=== PATIENT | female | born 1955 | race Caucasian/White ===

== ENCOUNTER → 2023-01-01 09:57 | Outpatient (BNVA) | payer MEDICAID, SELFPAY | PROVIDERS: PCP Nurse Practitioner Family; Visit Provider Nurse Practitioner Family | DX: E11.9 Type 2 diabetes mellitus without complications (principal); E78.5 Hyperlipidemia, unspecified | CPT/HCPCS: 80053; 80061; 83036; 84443; 85025 ==

== ENCOUNTER → 2023-06-04 10:36 | Outpatient (BNVA) | payer MEDICAID, SELFPAY | PROVIDERS: PCP Nurse Practitioner Family; Visit Provider Nurse Practitioner Family | DX: E11.9 Type 2 diabetes mellitus without complications (principal) | CPT/HCPCS: 80053; 80061; 83036; 84443; 85025 ==

== ENCOUNTER → 2023-07-21 13:01 | Outpatient (BNVA) | payer MEDICAID, SELFPAY | PROVIDERS: PCP Nurse Practitioner Family; Referring Provider Nurse Practitioner Family; Visit Provider Internal Medicine | DX: R07.9 Chest pain, unspecified (principal); E11.9 Type 2 diabetes mellitus without complications; I10 Essential (primary) hypertension; E78.5 Hyperlipidemia, unspecified; Z79.01 Long term (current) use of anticoagulants; R94.31 Abnormal electrocardiogram [ECG] [EKG] | CPT/HCPCS: 93005; 99204 ==

== ENCOUNTER → 2024-01-27 08:50 | Outpatient (BNVA) | payer MEDICAID, SELFPAY | PROVIDERS: PCP Nurse Practitioner Family; Visit Provider Nurse Practitioner Family | DX: I10 Essential (primary) hypertension (principal); E11.9 Type 2 diabetes mellitus without complications | CPT/HCPCS: 80053; 80061; 83036; 84443; 85025 ==

== ENCOUNTER → 2024-02-01 13:49 | Outpatient (BNVA) | payer MEDICAID, SELFPAY | PROVIDERS: PCP Nurse Practitioner Family; Visit Provider Internal Medicine Cardiovascular Disease | DX: I48.91 Unspecified atrial fibrillation (principal); I10 Essential (primary) hypertension; Z79.01 Long term (current) use of anticoagulants | CPT/HCPCS: 99213 ==

== ENCOUNTER 2024-02-29 06:00 | Outpatient (RCR) | payer MEDICARE, MEDICAID, SELFPAY | END 2024-03-16 23:59 | disposition home or self-care (01) | LOC: APT 06:00 | PROVIDERS: Visit Provider Nurse Practitioner Family | DX: M06.9 Rheumatoid arthritis, unspecified (principal); R26.9 Unspecified abnormalities of gait and mobility | CPT/HCPCS: 97110; 97112; 97162; 97530 ==

== ENCOUNTER 2024-03-17 06:00 | Outpatient (RCR) | payer MEDICARE, MEDICAID, SELFPAY | END 2024-04-16 23:59 | disposition home or self-care (01) | LOC: APT 06:00 | PROVIDERS: Visit Provider Nurse Practitioner Family | DX: M06.9 Rheumatoid arthritis, unspecified (principal); M19.90 Unspecified osteoarthritis, unspecified site; R26.9 Unspecified abnormalities of gait and mobility | CPT/HCPCS: 97110; 97112; 97530 ==

== ENCOUNTER → 2024-04-13 09:00 | Outpatient (BNVA) | payer MEDICARE, MEDICAID, SELFPAY | PROVIDERS: PCP Nurse Practitioner Family; Visit Provider Nurse Practitioner Family | DX: E03.9 Hypothyroidism, unspecified (principal); E11.9 Type 2 diabetes mellitus without complications | CPT/HCPCS: 80053; 80061; 83036; 84443; 85025 ==

== ENCOUNTER → 2024-09-26 11:14 | Outpatient (BNVA) | payer MEDICARE, MEDICAID, SELFPAY | PROVIDERS: PCP Nurse Practitioner Family; Visit Provider Clinical Nurse Specialist Adult Health | DX: M85.80 Other specified disorders of bone density and structure, unspecified site (principal); Z78.0 Asymptomatic menopausal state; E11.8 Type 2 diabetes mellitus with unspecified complications; E11.9 Type 2 diabetes mellitus without complications; I10 Essential (primary) hypertension; E78.5 Hyperlipidemia, unspecified; E03.9 Hypothyroidism, unspecified; I48.91 Unspecified atrial fibrillation; R60.0 Localized edema; M25.811 Other specified joint disorders, right shoulder; G47.33 Obstructive sleep apnea (adult) (pediatric) | CPT/HCPCS: 80053; 80061; 83036; 83880; 84443; 85025 ==

== ENCOUNTER 2024-10-11 07:53 | Outpatient (RCR) | payer MEDICARE, MEDICAID, SELFPAY | END 2024-10-14 23:59 | disposition home or self-care (01) | LOC: APT 07:53 | PROVIDERS: PCP Clinical Nurse Specialist Adult Health; Visit Provider Clinical Nurse Specialist Adult Health | DX: M25.811 Other specified joint disorders, right shoulder (principal) | CPT/HCPCS: 97110; 97162 ==

== ENCOUNTER 2024-10-15 06:00 | Outpatient (RCR) | payer MEDICARE, MEDICAID, SELFPAY | END 2024-11-14 23:59 | disposition home or self-care (01) | LOC: APT 06:00 | PROVIDERS: PCP Clinical Nurse Specialist Adult Health; Visit Provider Clinical Nurse Specialist Adult Health | DX: M25.811 Other specified joint disorders, right shoulder (principal) | CPT/HCPCS: 97110 ==

== ENCOUNTER 2024-10-31 15:10 | Outpatient (CLI) | payer MEDICARE, MEDICAID, SELFPAY ==
--- NOTE | 2024-10-31 15:22 | XR_ITS ---
WS: [id number] SCREENING DEXA SCAN [employer] CLINICAL INFORMATION: M85.80 OTHER SPECIFIED DISORDERS OF THE BONE COMPARISON: None. FINDINGS: The L1-L4 bone mineral density measures 1.095 g/cm2. This corresponds to a T score score of -0.7 and Z score of -0.2. Left femoral neck bone mineral density measures 0.866 g/cm2. This corresponds to a T score of -1.1 and Z score of -0.5. Right femoral neck bone mineral density measures 0.976 g/cm2. This corresponds to a T score -0.3of and Z score of 0.3. Mean femoral neck bone mineral density measures 0.921 g/cm2. This corresponds to a T score of -0.7 and Z score of -0.1. XR/XR DEXA axial skeleton* [id number] IMPRESSION: Normal bone mineralization lumbar spine. Osteopenia LEFT femur. Normal bone min eralization RIGHT femur. Patient's FRAX calculated 10 year probability for major osteoporotic fracture i s 9.7% and osteoporotic hip fracture is 0.9%.
== END 2024-10-31 15:11 | disposition home or self-care (01) ==
LOC: RAD 15:11
PROVIDERS: PCP Clinical Nurse Specialist Adult Health; Visit Provider Clinical Nurse Specialist Adult Health
DX: Z78.0 Asymptomatic menopausal state (principal); M85.852 Other specified disorders of bone density and structure, left thigh
CPT/HCPCS: 77080

== ENCOUNTER 2024-11-15 05:00 | Outpatient (RCR) | payer MEDICARE, MEDICAID, SELFPAY | END 2024-12-14 23:59 | disposition home or self-care (01) | LOC: APT 05:00 | PROVIDERS: PCP Clinical Nurse Specialist Adult Health; Visit Provider Clinical Nurse Specialist Adult Health | DX: M25.811 Other specified joint disorders, right shoulder (principal) | CPT/HCPCS: 97110; 97112; 97530 ==

== ENCOUNTER 2024-12-19 08:42 | Inpatient (IN) | payer MEDICARE, MEDICAID, SELFPAY ==
[2024-12-19] VITALS (13 sets, daily range): BP systolic 119–182; BP diastolic 75–102; PULSE 98–119; RESP 16–18; TEMP 37.1; O2SAT 91–96; BMI 37.5
[2024-12-19 10:13] LABS: Basophils % 0.2 %; Eosinophils % 0.1 %; Hematocrit 44.7 % (36-47); Lymphocytes # 0.7 10^3/uL (0.8-4.8); Lymphocytes % 4.3 %; Mean Corpuscular Hemoglobin 29.2 pg (27-33); Mean Corpuscular Volume 91.4 fl (85-98); Mean Platelet Volume 10.9 fL (7.4-10.4); Monocytes # 0.5 10^3/uL (0.2-0.9); Monocytes % 3.3 %; Neutrophils # 14.69 10^3/uL (1.8-7.7); Neutrophils % 91.6 %; Nucleated Red Blood Cells % 0 %; Platelet Count 269 10^3/cmm (157-399); Red Blood Count 4.89 10^6/uL (3.85-5.65); Red Cell Distribution Width 13.9 % (12.1-15.1); White Blood Count 16.03 10^3/uL (3.29-11.43)
[2024-12-19 10:35] LABS: Alanine Aminotransferase 417 U/L (0-33); Albumin Level 4.5 g/dL (3.5-5.2); Alkaline Phosphatase 138 U/L (35-105); Anion Gap 23.8 (5-19); Aspartate Amino Transferase 671 U/L (0-32); Blood Urea Nitrogen 26 mg/dL (8-23); Calcium 10.6 mg/dL (8.5-10.5); Carbon Dioxide 22 mmol/L (22-29); Chloride 98 mmol/L (98-107); Creatinine Clr Calc Pharmacy 56.2322; Globulin 3.2 g/dL (1.3-4.6); Glomerular Filtration Rate 44.5 mL/min (90-130); Glucose 172 mg/dL (65-115); Osmolality Calculated 299 mOsm/kg (285-295); Potassium 3.8 mmol/L (3.5-5.1); Sodium 140 mmol/L (136-145); Total Bilirubin 2.5 mg/dL (0.15-1.2); Total Protein 7.7 g/dL (6.6-8.7)
--- NOTE | 2024-12-19 10:58 | US_ITS ---
WS: [id number] RIGHT UPPER QUADRANT ULTRASOUND HISTORY: N/V; elevated LFTs COMPARISON: None available. Liver: 19.8 cm in length. Moderately enlarged liver. Liver is difficult to see in its entirety due to patient's body habitus and attenuation. Portal Vein: Normal hepatopetal flow with monophasic waveform. Gallbladder: Normally distended gallbladder with stones. Comet tail artifact also noted within the gallbladder from adenomyomatosis. CBD: 0.7 cm Pancreas: Obscured. Right kidney: 9.7 cm in length. Normal size and echogenicity. No hydronephrosis or mass. Aorta and IVC: Unremarkable abdominal aorta and IVC. No ascites. US/US gall bladder [id number] IMPRESSION: 1. Cholelithiasis without acute cholecystitis. Additional comet tail artifact from adenomyomatosis. 2. Common bile duct is measuring top normal size. 3. Moderate hepatomegaly with hepatic steatosis.
[2024-12-19 11:17] LABS: Lipase > 15412 U/L (13-60)
--- NOTE | 2024-12-19 13:19 | W.ED.NAVMDI ---
HPI - Nausea/Vomiting/Diarrhea General: Chief complaint: Nausea/Vomiting/Diarrhea Stated complaint: n/v Time Seen by Provider: 12/19/24 08:57 History of Present Illness: 69-year-old female presents with nausea vomiting diarrhea that started this morning. Patient reports she has been having symptoms on and off since around [facility]. She would get some symptoms and that would go away. That this morning she had a lot worse symptoms as far as the nausea vomiting, she has got some moderate diffuse abdominal pain. Associated nausea: Yes Associated symtoms: Reports fatigue and nausea Related Data Previous Rx's ?Medication ?Instructions ?Recorded blood sugar diagnostic (OneTouch #100 ea 01/27/24 Verio test strips) blood-glucose meter (OneTouch #1 ea 01/27/24 Verio Flex Meter) lancets #100 ea 01/27/24 albuterol sulfate 90 mcg/actuation 2 puff inhalation QID PRN 09/26/24 aerosol inhaler (Ventolin HFA) shortness of breath or wheezing #6.7 grams allopurinol 300 mg tablet 300 mg PO DAILY #30 tabs 09/26/24 apixaban 5 mg tablet (Eliquis) 5 mg PO BID #60 tabs 09/26/24 atorvastatin 20 mg tablet 20 mg PO BEDTIME #30 tabs 09/26/24 diltiazem HCl 300 mg capsule,24 300 mg PO DAILY #30 caps 09/26/24 hr,extended release levothyroxine 75 mcg capsule 75 mcg PO DAILY #30 caps 09/26/24 lisinopril 20 mg tablet 20 mg PO DAILY #30 tabs 09/26/24 metformin 500 mg tablet 500 mg PO DAILY #30 tabs 09/26/24 mometasone-formoterol HFA 100 2 puff inhalation BID #13 grams 09/26/24 mcg-5 mcg/actuation aerosol inhaler (Dulera) montelukast 10 mg tablet 10 mg PO DAILY #30 tabs 09/26/24 (Singulair) Allergies Allergy/AdvReac Type Severity Reaction Status Date / Time No Known Allergies Allergy Verified 12/19/24 09:32 Review of Systems Const: Reports: chills and fatigue; Denies: fever(s) Resp: Denies: dyspnea or wheezing GI: Reports: abdominal pain, nausea, vomiting and diarrhea : Denies: flank pain or difficulty voiding Musc: Denies: neck pain PFSH ED PFSH: Medical History Enrolled in chronic care management MARYCARMEN (obstructive sleep apnea) hx of diagnosed marycarmen, not on cpap Hypothyroidism Chronic anticoagulation Chronic gout Hyperlipidemia Essential hypertension Type 2 diabetes mellitus COPD (chronic obstructive pulmonary disease) Atrial fibrillation Osteoarthritis Rheumatoid arthritis Surgical History Hx of goiter hx of goiter excision Hx of local excision of skin lesion left foot skin cancer removed Hx of tooth extraction Hx of hysterectomy, total had a plasma reaction when she had her hysterectomy. Was told to avoid future surgeries due to this reaction. 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 Physical Exam Const: COMMON NORMALS: patient oriented x3 NUTRITIONAL APPEARANCE: obese Resp: COMMON NORMALS: normal respiratory effort and clear to auscultation bilaterally AUSCULTATION: clear to auscultation bilaterally Cardio: COMMON NORMALS: regular rhythm RATE: tachycardic RHYTHM: regular rhythm GI: COMMON NORMALS: Soft to palpation PALPATION: Yes Soft to palpation and Yes Tenderness to palpation present (GI) (Mild diffuse) Extremity: COMMON NORMALS: normal to inspection Neuro: COMMON NORMALS: patient oriented x3 and moves all extremities Psych: COMMON NORMALS: mental status grossly normal, Normal thought process present and cooperative THOUGHT PROCESS: Normal thought process present Skin: COMMON NORMALS: no rashes or lesions noted GENERAL SKIN EXAM: no rashes or lesions noted Course Vital Signs: Vital signs: Vital Signs Temperature 98.1 F 12/20/24 03:30 Pulse Rate 116 H 12/20/24 05:30 Respiratory Rate 20 H 12/20/24 04:30 Blood Pressure 141/76 12/20/24 05:30 Pulse Oximetry 94 12/20/24 05:30 Oxygen Delivery Me thod Nasal Cannula 12/20/24 03:30 Oxygen Flow Rate 2 12/19/24 21:30 MDM - Nausea/Vomiting/Diarrhea Medical Decision Making Patient's diagnostic studies were reviewed and show significant elevation of her lipase along with her liver enzymes. Initial ultrasound showed cholelithiasis but no acute cholecystitis. Due to concerns about needing a possible ERCP following discussion with hospitalist and general surgery did contact [facility]. [facility] did not have ERCP capabilities tonight and requested an MRCP. MRCP shows acute pancreatitis. Patient is excepted to [facility] for GI consultation with the hospitalist Dr. Key accepting. Patient will likely not be transferred till tomorrow due to bed availability. Lab Data 12/20/24 05:35 12/19/24 09:56 Radiology Impressions Gallbladder Ultrasound 12/19/24 10:58 IMPRESSION: 1. Cholelithiasis without acute cholecystitis. Additional comet tail artifact from adenomyomatosis. 2. Common bile duct is measuring top normal size. 3. Moderate hepatomegaly with hepatic steatosis. Cholangiopancreatography MRI 12/19/24 13:23 IMPRESSION: 1. Findings consistent with acute pancreatitis 2. Cholelithiasis with mild pericholecystic edema 3. Normal bile ducts Laboratory Results WBC 21.46 10^3/uL (3.29-11.43) H 12/20/24 05:35 RBC 4.84 10^6/uL (3.85-5.65) 12/20/24 05:35 Hgb 14.20 g/dL (11.27-16.99) 12/20/24 05:35 Hct 43.1 % (36-47) 12/20/24 05:35 MCV 89.0 fl (85-98) 12/20/24 05:35 MCH 29.3 pg (27-33) 12/20/24 05:35 MCHC 32.9 g/dL (30-55) 12/20/24 05:35 RDW 14.4 % (12.1-15.1) 12/20/24 05:35 Plt Count 253 10^3/cmm (157-399) 12/20/24 05:35 MPV 10.9 fL (7.4-10.4) H 12/20/24 05:35 Neut % (Auto) 89.8 % 12/20/24 05:35 Lymph % (Auto) 4.4 % 12/20/24 05:35 Bos[place] % (Auto) 4.5 % 12/20/24 05:35 Eos % (Auto) 0.7 % 12/20/24 05:35 Baso % (Auto) 0.2 % 12/20/24 05:35 Neut # (Auto) 19.27 10^3/uL (1.8-7.7) H 12/20/24 05:35 Lymph # (Auto) 1.0 10^3/uL (0.8-4.8) 12/20/24 05:35 [place] # (Auto) 1.0 10^3/uL (0.2-0.9) H 12/20/24 05:35 Eos # (Auto) 0.2 10^3/uL (0.0-0.8) 12/20/24 05:35 Baso # (Auto) 0.0 10^3/uL (0.0-0.1) 12/20/24 05:35 Nucleated RBC % (auto) 0 % 12/20/24 05:35 Nucleated RBCs # 0.0 /100WBC 12/20/24 05:35 Sodium 140 mmol/L (136-145) 12/19/24 09:56 Potassium 3.8 mmol/L (3.5-5.1) 12/19/24 09:56 Chloride 98 mmol/L (98-107) 12/19/24 09:56 Carbon Dioxide 22 mmol/L (22-29) 12/19/24 09:56 Anion Gap 23.8 (5-19) H 12/19/24 09:56 BUN 26 mg/dL (8-23) H 12/19/24 09:56 Creatinine 1.2 mg/dL (0.5-0.9) H 12/19/24 09:56 GFR Calculation 44.5 mL/min (90-130) L 12/19/24 09:56 Glucose 172 mg/dL (65-115) H 12/19/24 09:56 Calculated Osmolality 299 mOsm/kg (285-295) H 12/19/24 09:56 Calcium 10.6 mg/dL (8.5-10.5) H 12/19/24 09:56 Total Bilirubin 2.5 mg/dL (0.15-1.2) H 12/19/24 09:56 AST 671 U/L (0-32) H 12/19/24 09:56 ALT 417 U/L (0-33) H 12/19/24 09:56 Alkaline Phosphatase 138 U/L (35-105) H 12/19/24 09:56 Total Protein 7.7 g/dL (6.6-8.7) 12/19/24 09:56 Albumin 4.5 g/dL (3.5-5.2) 12/19/24 09:56 Globulin 3.2 g/dL (1.3-4.6) 12/19/24 09:56 Lipase > 62053 U/L (13-60) H 12/19/24 09:56 Urine Color Dark yellow (Yellow) A 12/19/24 14:48 Urine Appearance Slightly cloudy (CLEAR) 12/19/24 14:48 Urine pH 5 (5-7) 12/19/24 14:48 Ur Specific [place] 1.010 (1.005-1.030) 12/19/24 14:48 Urine Protein 2+ (Negative) H 12/19/24 14:48 Urine Glucose (UA) Norm (Normal) 12/19/24 14:48 Urine Ketones Negative (Negative) 12/19/24 14:48 Urine Blood 2+ (Negative) H 12/19/24 14:48 Urine Nitrate Negative (Negative) 12/19/24 14:48 Urine Bilirubin 1+ (Negative) H 12/19/24 14:48 Urine Urobilinogen 4 mg/dL (Negative) H 12/19/24 14:48 Ur Leukocyte Esterase 2+ (Negative) H 12/19/24 14:48 Urine RBC 3-5 /hpf (0-2) 12/19/24 14:48 Urine WBC 51-100 /hpf (0-5) H 12/19/24 14:48 Ur Squamous Epith Cells 6-10 /hpf (0-5) 12/19/24 14:48 Amorphous Sediment Not Reportable 12/19/24 14:48 Urine Bacteria 4+ /hpf (NONE) H 12/19/24 14:48 Hyaline Casts 26.85 /lpf 12/19/24 14:48 All radiology interpretation(s) finalized by discharge Discharge Plan Discharge Patient Disposition: Xfer Short-Term Hosp Clinical Impression: Pancreatitis, Choledocholithiasis Condition: Stable Referrals: Sudheer Ivy NP [Primary Care Provider, Family Practice] Print Language: [place] Coding Level of Care Code ED Boardmarker for Elis Carey
--- NOTE | 2024-12-19 13:23 | MRR_ITS ---
PROCEDURE INFORMATION: Exam: MR Abdomen Without Contrast Exam date and time: 12/19/2024 4:59 PM Age: 69 years old Clinical indication: Abdominal pain; Generalized; Additional info: Pancreatitis, possible bile duct stone TECHNIQUE: Imaging protocol: Magnetic resonance imaging of the abdomen without contrast. COMPARISON: US gall bladder [id number] 12/19/2024 11:16 AM FINDINGS: Liver: A 1 cm cyst involves the posterior segment of the right hepatic lobe. Gallbladder and biliary ducts: Multiple gallstones and sludge can be seen in the gallbladder. There is mild pericholecystic edema. Bile ducts are unremarkable. Pancreas: There is inflammation involving the body and tail of the pancreas with fluid noted throughout the left upper quadrant. Spleen: Unremarkable. No splenomegaly. Adrenal glands: Unremarkable. No mass. Kidneys: Unremarkable. No solid mass. No hydronephrosis. Stomach and bowel: Visualized stomach and intestines are unremarkable. Intraperitoneal space: No free fluid. Vasculature: No abdominal aortic aneurysm. Lymph nodes: No enlarged nodes. Bones/joints: Unremarkable. No suspicious lesions. Soft tissues: Unremarkable. MR/MR MRCP [id number] IMPRESSION: 1. Findings consistent with acute pancreatitis 2. Cholelithiasis with mild pericholecystic edema 3. Normal bile ducts
--- NOTE | 2024-12-19 13:46 | PM.CONSULT ---
Providers/Reason For Consult Consulting Physician/Specialty*: General Surgery Reason for Consult*: Evaluation for possible acute cholecystitis Primary Care Provider: Sudheer Ivy History of Present Illness History of Present Illness Priti Hurtado is a 69 year old female Who presents to the hospital with severe abdominal pain nausea and vomiting over the last 24 hours. According to the patient she has been having on and off abdominal pain since and the pain resolved with changes in diet but yesterday after eating she experienced significant abdominal pain in the epigastrium radiating to the mid abdomen and back. She has had multiple episodes of nausea and vomit. Workup in the emergency department shows evidence of a elevated white count to 16,000 and a lipase level of more than 15,000. There is also elevation of the bilirubin ALT AST and the alk phos. Review of Systems General: Reports: 10 or more systems reviewed and unremarkable except in HPI and below Medications/Allergies Home Medications ?Medication ?Instructions ?Recorded ?Confirmed ?Last Taken ?Type blood sugar diagnostic (OneTouch #100 ea 01/27/24 12/14/24 Unknown Rx Verio test strips) blood-glucose meter (OneTouch #1 ea 01/27/24 12/14/24 Unknown Rx Verio Flex Meter) cetirizine 10 mg capsule (Allergy 10 mg PO DAILY #30 caps 01/27/24 12/14/24 Unknown Rx Relief (cetirizine)) lancets #100 ea 01/27/24 12/14/24 Unknown Rx albuterol sulfate 90 mcg/actuation 2 puff inhalation QID PRN 09/26/24 12/14/24 Unknown Rx aerosol inhaler (Ventolin HFA) shortness of breath or wheezing #6.7 grams allopurinol 300 mg tablet 300 mg PO DAILY #30 tabs 09/26/24 12/14/24 Unknown Rx apixaban 5 mg tablet (Eliquis) 5 mg PO BID #60 tabs 09/26/24 12/14/24 Unknown Rx atorvastatin 20 mg tablet 20 mg PO BEDTIME #30 tabs 09/26/24 12/14/24 Unknown Rx cyclobenzaprine 5 mg tablet 5 mg PO TID PRN muscle spasm #20 09/26/24 12/14/24 Unknown Rx tabs diltiazem HCl 300 mg capsule,24 300 mg PO DAILY #30 caps 09/26/24 12/14/24 Unknown Rx hr,extended release levothyroxine 75 mcg capsule 75 mcg PO DAILY #30 caps 09/26/24 12/14/24 Unknown Rx lisinopril 20 mg tablet 20 mg PO DAILY #30 tabs 09/26/24 12/14/24 Unknown Rx metformin 500 mg tablet 500 mg PO DAILY #30 tabs 09/26/24 12/14/24 Unknown Rx mometasone-formoterol HFA 100 2 puff inhalation BID #13 grams 09/26/24 12/14/24 Unknown Rx mcg-5 mcg/actuation aerosol inhaler (Dulera) montelukast 10 mg tablet 10 mg PO DAILY #30 tabs 09/26/24 12/14/24 Unknown Rx (Singulair) Allergies Allergy/AdvReac Type Severity Reaction Status Date / Time No Known Allergies Allergy Verified 12/19/24 09:32 PFSH Acute PFSH: Medical History Enrolled in chronic care management NORIS (obstructive sleep apnea) hx of diagnosed noris, not on cpap Hypothyroidism Chronic anticoagulation Chronic gout Hyperlipidemia Essential hypertension Type 2 diabetes mellitus COPD (chronic obstructive pulmonary disease) Atrial fibrillation Osteoarthritis Rheumatoid arthritis Surgical History Hx of goiter hx of goiter excision Hx of local excision of skin lesion left foot skin cancer removed Hx of tooth extraction Hx of hysterectomy, total had a plasma reaction when she had her hysterectomy. Was told to avoid future surgeries due to this reaction. 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 Data 12/19/24 09:56 12/19/24 09:56 A&P Assessment and plan (1) Pancreatitis: (2) Choledocholithiasis: Plan This is a 69-year-old female who presents to the hospital with a clinical picture consistent with acute pancreatitis likely from biliary etiology. Currently there is no evidence of acute cholecystitis per imaging and also physical examination. She does have significant evaluation of the LFTs including a 2.5 total bilirubin and a alk phos of 138. The common bile duct in ultrasound was 0.7, due to the significant elevation of the lipase and also elevation of LFTs I think it will be important to obtain additional imaging in the form of MRCP to rule out choledocholithiasis. If choledocholithiasis is identified patient will need referral to higher level of care for ERCP. if MRCP is negative for choledocholithiasis the recommendation will be medical management of acute pancreatitis, additional workup with triglyceride level to ensure no other etiology and once acute episode of pancreatitis has subsided we can consider laparoscopic cholecystectomy that could be done in an elective setting as it will be helpful from the surgical standpoint for the patient to be on a high-protein liquid diet for 2 weeks due to hepatomegaly. In the case of clinical changes in patient condition we might decide to proceed earlier. Due to elevation of the white count it will be a recommendation that the patient is started on gram-negative antibiotic coverage. All other management should be guided by medical team, pending results of MRCP. PDMP PDMP Reviewed: Not Reviewed Coding Level of Care Code Acute Code for Chg Fwd Diagnoses Pancreatitis K85.90 Choledocholithiasis K80.50
[2024-12-19] MEDS: sodium chloride 0.9% 1,000 ML 999 ML IV (14:04)
[2024-12-19] MEDS: ondansetron 2 mg/ML SDV 2 mL 4 MG IVP ×2 (14:05→19:58)
[2024-12-19] MEDS: fentaNYL 50 mcg/mL INJ 2mL IVP (14:06)
[2024-12-19 15:16] LABS: Bacteria Urine 4+ /hpf; Hyaline Casts Urine 26.85 /lpf; Universal Test for UA Present (0); WBC Urine 51-100 /hpf (0-5)
[2024-12-19 15:56] LABS: Add Urine Microscopic? YES; Bilirubin Urine 1+ (Negative); Blood Urine 2+ (Negative); Glucose Urine UA Norm (Normal); Ketones Urine Negative (Negative); Leukocyte Esterase Urine 2+ (Negative); Nitrate Urine Negative (Negative); Protein Urine 2+ (Negative); Urine Appearance Slightly Cloudy (CLEAR); Urine Color Dark Yellow (Yellow); Urobilinogen Urine 4 mg/dL (Negative); pH Urine 5 (5-7)
[2024-12-19 15:57] LABS: UA Slide Review UA Slide Review Perf
[2024-12-19 16:01] LABS: Add Urine Culture? Yes
[2024-12-19] MEDS: morphine 4 mg/mL SDV 1 mL IVP (19:58)
[2024-12-19] MEDS: lactated ringers 1,000 ML 150 ML IV (21:14)
[2024-12-20] VITALS (49 sets, daily range): BP systolic 114–175; BP diastolic 67–114; PULSE 106–125; RESP 17–28; TEMP 36.7–38.4; O2SAT 92–96; BMI 38.9
[2024-12-20] MEDS: cefTRIAXone 1,000 mg SDV 1000 MG IVP (03:41)
[2024-12-20] MEDS: lactated ringers 1,000 ML 150 ML IV ×3 (03:41→19:55)
[2024-12-20] MEDS: ondansetron 2 mg/ML SDV 2 mL 4 MG IVP (03:54)
[2024-12-20] MEDS: morphine 4 mg/mL SDV 1 mL IVP (03:54)
[2024-12-20 05:58] LABS: Basophils % 0.2 %; Eosinophils # 0.2 10^3/uL (0.0-0.8); Eosinophils % 0.7 %; Hematocrit 43.1 % (36-47); Lymphocytes % 4.4 %; Mean Corpuscular HGB Conc 32.9 g/dL (30-55); Mean Corpuscular Hemoglobin 29.3 pg (27-33); Mean Platelet Volume 10.9 fL (7.4-10.4); Monocytes % 4.5 %; Neutrophils # 19.27 10^3/uL (1.8-7.7); Neutrophils % 89.8 %; Nucleated Red Blood Cells % 0 %; Platelet Count 253 10^3/cmm (157-399); Red Blood Count 4.84 10^6/uL (3.85-5.65); Red Cell Distribution Width 14.4 % (12.1-15.1); White Blood Count 21.46 10^3/uL (3.29-11.43)
[2024-12-20 06:06] LABS: Glucose Point of Care 129 mg/dL (70-110)
[2024-12-20 06:17] LABS: Alanine Aminotransferase 515 U/L (0-33); Albumin Level 3.6 g/dL (3.5-5.2); Alkaline Phosphatase 172 U/L (35-105); Anion Gap 16.8 (5-19); Aspartate Amino Transferase 444 U/L (0-32); Blood Urea Nitrogen 26 mg/dL (8-23); Calcium 8.2 mg/dL (8.5-10.5); Carbon Dioxide 26 mmol/L (22-29); Chloride 104 mmol/L (98-107); Creatinine Clr Calc Pharmacy 67.4787; Globulin 2.9 g/dL (1.3-4.6); Glucose 154 mg/dL (65-115); Osmolality Calculated 304 mOsm/kg (285-295); Potassium 3.8 mmol/L (3.5-5.1); Sodium 143 mmol/L (136-145); Total Bilirubin 4.8 mg/dL (0.15-1.2); Total Protein 6.5 g/dL (6.6-8.7)
[2024-12-20 06:33] LABS: Triglycerides 57 mg/dL (0-150)
[2024-12-20] MEDS: piperacillin-tazobactam 3.375 GM in sodium chloride 0.9% (plus) 50 ML IV ×3 (06:33→21:29)
--- NOTE | 2024-12-20 06:34 | PM.PN ---
Subjective Subjective: Patient has been awaiting transfer to higher level of care. her symptoms are stable but there is significant worsening of laboratory workup. Vitals/I&O/Wt Last Vital Signs Temp 98.1 F 12/20/24 03:30 Pulse 114 H 12/20/24 06:00 Resp 20 H 12/20/24 04:30 BP 148/76 12/20/24 06:00 Pulse Ox 93 12/20/24 06:00 O2 Del Method Nasal Cannula 12/20/24 06:00 O2 Flow Rate 2 12/19/24 21:30 12/19/24 12/19/24 12/20/24 14:59 22:59 06:59 Intake Total 1000 / 1000 1380.0 / 2380.0 Balance 1000 / 1000 1380.0 / 2380.0 Weight last 48 hrs Weight 240 lb Data 12/20/24 05:35 12/20/24 05:35 A&P Assessment and plan (1) Pancreatitis: (2) Cholangitis: Plan Significant worsening of biliary profiele and wbc in the last 24 hours. with elevation of the billurubin to 4.8 fro 2.5 and wbc to 21 from 16. additional lfts are also elevated this new workup is concerning for the possibility of cholangitis vs severe pancreatitis with biliary stasis. At this point patient will benefit from GI evaluation and possible biliary decompresion via ERCP before proceeding to cholecystectomy due to severity of pancreatitis and significant elevation of billirubin. transfer to higher level of care is recommended. PDMP PDMP Reviewed: Not Reviewed Attestations Medical Necessity Statement*: per medical and ER team Coding Level of Care Code Acute Code for [facility] Diagnoses Pancreatitis K85.90 Cholangitis K83.09
[2024-12-20 07:10] LABS: Lactic Sepsis W/Reflex 1.2 mmol/L (0.5-2.2)
[2024-12-20 07:15] LABS: Lipase 4915 U/L (13-60)
--- NOTE | 2024-12-20 08:55 | PC.PHAR ---
Addendum entered by Randa Solis 12/20/24 08:56: Medications verified yesterday but I re-verified with pt this morning. Pt concerned about getting her am meds and inhaler. States her machine will stop going off when she gets them. Original Note: Pt states she really needs her morning medications: Diltiazem 300, Eliquis 5mg, Levothyroxine 75mcg, Lisinopril 20mg and her Dulera. 12/20/24
--- NOTE | 2024-12-20 11:09 | PM.CONSULT ---
Providers/Reason For Consult Consulting Physician/Specialty*: Hospitalist Reason for Consult*: Pancreatitis, cholecystitis Primary Care Provider: Sudheer Ivy History of Present Illness History of Present Illness Priti Hurtado is a 69 year old patient presents with episodes of nausea, vomiting, diarrhea, and lower abdominal pain. The initial onset was on the Thursday before , lasting four days before resolving, followed by a recurrence on Thursday evening with increased severity. And then again last Thursday night and into yesterday morning which brought her to ED. The pain is described as being localized to across the lower abdomen and just under the breast area. The patient also reports episodes of feeling very cold prior to vomiting and recalls a previous bout of diarrhea lasting about five days with yellow stools and no blood. Prior management included a bland diet (toast, applesauce, and banana) with instructions to avoid coffee in favor of water and green tea. The patient currently denies any active vomiting or diarrhea. In ER she is found with tachycardia up to 120, although she states she has not taken her diltiazem medication. With leukocytosis 16, increased up to 21 .5, with T. bili elevated up to 2.5 yesterday up to 4.8 today, alk phos 138 yesterday up to 172 today, with transaminitis, AST 671 down to 444 today, ALT 417 up to 515 today. Lipase over 15,412 yesterday. Today 4915. Gallbladder ultrasound with cholelithiasis without acute cholecystitis. CBD normal. Moderate hepatomegaly with hepatic steatosis. MRCP with findings consistent with acute pancreatitis, cholelithiasis with mild pericholecystic edema, normal bile ducts. Review of Systems Const: Reports: fever(s), chills, change in appetite and malaise; Denies: body aches ENMT: Denies: throat pain Card: Denies: chest pain, edema, pre-syncope or dyspnea on exertion Resp: Denies: dyspnea, productive cough, change in phlegm color or hemoptysis GI: Reports: abdominal pain, nausea and vomiting; Denies: diarrhea, constipation, hematochezia or melena : Denies: flank pain, urinary frequency or hematuria Musc: Denies: back pain, joint swelling or joint redness Skin/Breast: Denies: rash or new lesions Neuro: Denies: headache(s) or confusion Medications/Allergies Home Medications ?Medication ?Instructions ?Recorded ?Confirmed ?Last Taken ?Type blood sugar diagnostic (OneTouch #100 ea 01/27/24 12/19/24 Unknown Rx Verio test strips) blood-glucose meter (OneTouch #1 ea 01/27/24 12/19/24 Unknown Rx Verio Flex Meter) lancets #100 ea 01/27/24 12/19/24 Unknown Rx albuterol sulfate 90 mcg/actuation 2 puff inhalation QID PRN 09/26/24 12/19/24 Unknown Rx aerosol inhaler (Ventolin HFA) shortness of breath or wheezing #6.7 grams apixaban 5 mg tablet (Eliquis) 5 mg PO BID #60 tabs 09/26/24 12/19/24 12/18/24 Rx atorvastatin 20 mg tablet 20 mg PO BEDTIME #30 tabs 09/26/24 12/20/24 12/18/24 Rx mometasone-formoterol HFA 100 2 puff inhalation BID #13 grams 09/26/24 12/19/24 12/18/24 Rx mcg-5 mcg/actuation aerosol inhaler (Dulera) allopurinol 300 mg tablet 300 mg PO QPM 12/20/24 12/20/24 12/18/24 History diltiazem HCl 300 mg capsule,24 300 mg PO QAM 12/20/24 12/20/24 12/18/24 History hr,extended release levothyroxine 75 mcg capsule 75 mcg PO QAM 12/20/24 12/20/24 12/18/24 History lisinopril 20 mg tablet 20 mg PO QAM 12/20/24 12/20/24 12/19/24 History metformin 500 mg tablet 500 mg PO .NOON 12/20/24 12/20/24 12/19/24 History montelukast 10 mg tablet 10 mg PO .NOON 12/20/24 12/20/24 12/18/24 History (Singulair) multivitamin 1 tab PO QAM 12/20/24 12/20/24 12/19/24 History Allergies Allergy/AdvReac Type Severity Reaction Status Date / Time No Known Allergies Allergy Verified 12/19/24 09:32 Current Medications Generic Name Dose Route Start Last Admin Trade Name Freq PRN Reason Stop Dose Admin Lactated Ringer's 1,000 mls @ 150 mls/hr 12/19/24 20:30 12/20/24 08:39 Lactated Ringers IV 150 mls/hr .Q6H40M TONY Infusion Sodium Chloride 1,000 mls @ 150 mls/hr 12/20/24 04:45 12/20/24 04:39 Sodium Chloride 0.9% IV Not Given .Q6H40M TONY PFSH Acute PFSH: Medical History Enrolled in chronic care management MARYCARMEN (obstructive sleep apnea) hx of diagnosed marycarmen, not on cpap Hypothyroidism Chronic anticoagulation Chronic gout Hyperlipidemia Essential hypertension Type 2 diabetes mellitus COPD (chronic obstructive pulmonary disease) Atrial fibrillation Osteoarthritis Rheumatoid arthritis Surgical History Hx of goiter hx of goiter excision Hx of local excision of skin lesion left foot skin cancer removed Hx of tooth extraction Hx of hysterectomy, total had a plasma reaction when she had her hysterectomy. Was told to avoid future surgeries due to this reaction. 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 Vitals/I&O/Wt Last Vital Signs Temp 98.1 F 12/20/24 03:30 Pulse 114 H 12/20/24 06:00 Resp 20 H 12/20/24 04:30 BP 148/76 12/20/24 06:00 Pulse Ox 93 12/20/24 06:00 O2 Del Method Nasal Cannula 12/20/24 06:00 O2 Flow Rate 2 12/19/24 21:30 12/19/24 12/20/24 12/20/24 22:59 06:59 14:59 Intake Total 1000 / 1000 1380.0 / 2380.0 0 / 0 Balance 1000 / 1000 1380.0 / 2380.0 0 / 0 Weight last 48 hrs Weight 108.862 kg Physical Exam Const: COMMON NORMALS: patient oriented x3 and alert GENERAL APPEARANCE: cooperative ORIENTATION/CONSCIOUSNESS: Yes awake HENMT: COMMON NORMALS: oropharynx normal Neck/C-Spine: COMMON NORMALS: no JVD Resp: COMMON NORMALS: normal respiratory effort and clear to auscultation bilaterally AUSCULTATION: clear to auscultation bilaterally Cardio: COMMON NORMALS: no JVD, regular rhythm, S1 normal heart sound present, S2 normal heart sound present and No murmurs present (Cardio) RHYTHM: regular rhythm HEART SOUNDS: S1 normal heart sound present and S2 normal heart sound present GI: COMMON NORMALS: Soft to palpation PALPATION: Yes Soft to palpation and Yes Tenderness to palpation present (GI) Details: RUQ Extremity: COMMON NORMALS: no joint enlargement and no pedal edema Neuro: COMMON NORMALS: patient oriented x3 and moves all extremities SENSORIUM/ORIENTATION: Yes alert Skin: COMMON NORMALS: no rashes or lesions noted GENERAL SKIN EXAM: no rashes or lesions noted Data 12/20/24 05:35 12/20/24 05:35 Micro: Microbiology 12/19/24 14:48 Urine Culture - Preliminary Urine,Clean Catch Gram Negative Rods A&P Assessment and plan (1) Pancreatitis: Acute pancreatitis, lipase over 15,000 yesterday, with leukocytosis, A-fib with RVR, with T. bili elevation yesterday up to 2.5, alk phos elevation 138, AST 671, ALT 417. Gallbladder ultrasound with cholelithiasis without acute cholecystitis, additional, tail artifact from adenomatosis. Common bile duct top normal size. Moderate hepatomegaly with hepatic steatosis. MRCP obtained yesterday with finding consistent with acute pancreatitis, cholelithiasis with mild pericholecystic edema. Normal bile ducts. She was placed on bowel rest, received IV hydration, antiemetic, received empiric antibiotic coverage with ceftriaxone and then Zosyn. She was evaluated by general surgery. Initially without evidence of cholecystitis, with finding of biliary pancreatitis, while on further reevaluation with finding of rising bilirubin up to 4.8, rising alk phos up to 172, rising leukocytosis up to 21.5, possible concomitant cholecystitis, with recommended biliary decompression via ERCP prior to proceeding to cholecystectomy with concern for worsening cholestasis, possible obstructive pathology secondary to stricture or other obstruction. Agree with transfer arrangements are being made to higher level care facility. Continue with bowel rest, sips, chips, meds, IV hydration with LR. Continue acetaminophen as needed for pain. IV morphine as needed for severe breakthrough. Reviewed vitals, CBC, CMP, lipase, triglyceride, UA, all, mrcp, er provider note, discussed with er provider, surgery note, discussed with surgery provider. (2) Cholecystitis: Reviewed MRCP, cholelithiasis with mild pericholecystic edema. As above. Empiric antibiotic coverage with Zosyn currently. Hold Eliquis. Continue n.p.o., sips chips and meds for now to allow her to take her medications. (3) UTI (urinary tract infection): Reviewed UA, suggestive of UTI. Continue treatment with Zosyn. Follow-up urine culture. Plan Atrial fibrillation with RVR: Heart rate in 120s. She had not taken her medication yesterday. She usually takes Cardizem. Hold Eliquis anticipation of possible surgical procedure. Resume Cardizem. Monitor on telemetry. MARYCARMEN: Does not wear CPAP Hypothyroidism: Levothyroxine DM2: Currently NPO. Hypoglycemia protocol. COPD: Not in exacerbation, DuoNebs as needed. Budesonide. Osteoarthritis RA PDMP PDMP Reviewed: Not Reviewed Consult Attestations Medical Necessity Statement: Will require admission of over 2 midnights for assessment management of biliary pancreatitis, cholecystitis, UTI, A-fib with RVR, pending transfer to outside facility for further assessment by GI specialist. and High MDM includes amount and/or complexity of data reviewed/ordered [ previous or external records, resulted lab(s)/test(s), ordered lab(s)/test(s) and other healthcare professional discussion] and described risk of complication, morbidity or mortality of management as documented Diagnoses Pancreatitis K85.90 Cholecystitis K81.9 UTI (urinary tract infection) N39.0
[2024-12-20 12:10] LABS: Magnesium 1.8 mg/dL (1.7-2.3)
[2024-12-20] MEDS: enoxaparin 40 mg/0.4 mL Syringe SUBCUT (13:34)
[2024-12-20] MEDS: pantoprazole 40 mg SDV IVP (13:34)
[2024-12-20 14:36] LABS: Basophils % 0.1 %; Hematocrit 40.8 % (36-47); Lymphocytes # 1.1 10^3/uL (0.8-4.8); Lymphocytes % 4.7 %; Mean Corpuscular HGB Conc 32.8 g/dL (30-55); Mean Corpuscular Hemoglobin 29.6 pg (27-33); Mean Corpuscular Volume 90.3 fl (85-98); Mean Platelet Volume 10.8 fL (7.4-10.4); Monocytes # 0.9 10^3/uL (0.2-0.9); Monocytes % 3.9 %; Neutrophils # 20.64 10^3/uL (1.8-7.7); Neutrophils % 90.9 %; Nucleated Red Blood Cells % 0 %; Platelet Count 243 10^3/cmm (157-399); Red Blood Count 4.52 10^6/uL (3.85-5.65); Red Cell Distribution Width 14.5 % (12.1-15.1); White Blood Count 22.71 10^3/uL (3.29-11.43)
[2024-12-20 14:53] LABS: Alanine Aminotransferase 409 U/L (0-33); Albumin Level 3.3 g/dL (3.5-5.2); Alkaline Phosphatase 153 U/L (35-105); Aspartate Amino Transferase 264 U/L (0-32); Blood Urea Nitrogen 23 mg/dL (8-23); Calcium 7.6 mg/dL (8.5-10.5); Carbon Dioxide 24 mmol/L (22-29); Chloride 108 mmol/L (98-107); Creatinine Clr Calc Pharmacy 67.4787; Globulin 2.8 g/dL (1.3-4.6); Glucose 120 mg/dL (65-115); Osmolality Calculated 303 mOsm/kg (285-295); Sodium 144 mmol/L (136-145); Total Bilirubin 2.1 mg/dL (0.15-1.2); Total Protein 6.1 g/dL (6.6-8.7)
[2024-12-20 14:58] LABS: Anion Gap 15.8 (5-19); Potassium 3.8 mmol/L (3.5-5.1)
--- NOTE | 2024-12-20 17:05 | PC.NURSE ---
Pt arrvies to [facility] from Emergency room. Pt alert and oriented. She states her lower right abdomen pain is a 2 on 0-10 scale. She states it is dull. Pt chomping ice chips. After her ice chips she stated her stomach is cramping some, encouraged her to slow down on the ice chips. VSS. LR infusing into Left Forearm IV.
[2024-12-20 17:57] LABS: Glucose Point of Care 101 mg/dL (70-110)
--- NOTE | 2024-12-20 18:13 | PM.CONSULT ---
Providers/Reason For Consult Consulting Physician/Specialty*: General Surgery Reason for Consult*: Possible gallstone pancreatitis Attending Physician: Chandrakant Lance Primary Care Provider: Sudheer Ivy History of Present Illness History of Present Illness Priti Hurtado is a 69 year old female Who presented yesterday to our institution with severe abdominal pain nausea and vomiting. Laboratory workup showed a lipase of 15,000, the range LFTs and imaging were Shows evidence of acute pancreatitis. Gallbladder appeared to be normal, follow-up with stone send with mild pericholecystic fluid that can be explained by pancreatitis.Patient was initially evaluated and recommended for transfer to higher level of care as bilirubin appeared to be trending up. But this afternoon the bilirubin has trended down and the patient has been deemed a good candidate to stay in our institution. Review of Systems General: Reports: 10 or more systems reviewed and unremarkable except in HPI and below Medications/Allergies Home Medications ?Medication ?Instructions ?Recorded ?Confirmed ?Last Taken ?Type blood sugar diagnostic (OneTouch #100 ea 01/27/24 12/19/24 Unknown Rx Verio test strips) blood-glucose meter (OneTouch #1 ea 01/27/24 12/19/24 Unknown Rx Verio Flex Meter) lancets #100 ea 01/27/24 12/19/24 Unknown Rx albuterol sulfate 90 mcg/actuation 2 puff inhalation QID PRN 09/26/24 12/19/24 Unknown Rx aerosol inhaler (Ventolin HFA) shortness of breath or wheezing #6.7 grams apixaban 5 mg tablet (Eliquis) 5 mg PO BID #60 tabs 09/26/24 12/19/24 12/18/24 Rx atorvastatin 20 mg tablet 20 mg PO BEDTIME #30 tabs 09/26/24 12/20/24 12/18/24 Rx mometasone-formoterol HFA 100 2 puff inhalation BID #13 grams 09/26/24 12/19/24 12/18/24 Rx mcg-5 mcg/actuation aerosol inhaler (Dulera) allopurinol 300 mg tablet 300 mg PO QPM 12/20/24 12/20/24 12/18/24 History diltiazem HCl 300 mg capsule,24 300 mg PO QAM 12/20/24 12/20/24 12/18/24 History hr,extended release levothyroxine 75 mcg capsule 75 mcg PO QAM 12/20/24 12/20/24 12/18/24 History lisinopril 20 mg tablet 20 mg PO QAM 12/20/24 12/20/24 12/19/24 History metformin 500 mg tablet 500 mg PO .NOON 12/20/24 12/20/24 12/19/24 History montelukast 10 mg tablet 10 mg PO .NOON 12/20/24 12/20/24 12/18/24 History (Singulair) multivitamin 1 tab PO QAM 12/20/24 12/20/24 12/19/24 History Allergies Allergy/AdvReac Type Severity Reaction Status Date / Time No Known Allergies Allergy Verified 12/19/24 09:32 Current Medications Generic Name Dose Route Start Last Admin Trade Name Freq PRN Reason Stop Dose Admin Enoxaparin Sodium 40 mg 12/20/24 11:30 12/20/24 13:34 Enoxaparin 40 Mg/0.4 Ml Syringe SUBCUT 40 mg Q24H TONY Administration Lactated Ringer's 1,000 mls @ 150 mls/hr 12/19/24 20:30 12/20/24 13:00 Lactated Ringers IV 150 mls/hr .Q6H40M TONY Administration Piperacillin Sod/Tazobactam 50 mls @ 12.5 mls/hr 12/20/24 14:00 12/20/24 17:35 Sod 3.375 gm/ Sodium Chloride IV Infused Q8H TONY Infusion Protocol Pantoprazole Sodium 40 mg 12/20/24 11:30 12/20/24 13:34 Pantoprazole 40 Mg Sdv IVP 40 mg Q24H TONY Administration PFSH Acute PFSH: Medical History Enrolled in chronic care management MARYCARMEN (obstructive sleep apnea) hx of diagnosed marycarmen, not on cpap Hypothyroidism Chronic anticoagulation Chronic gout Hyperlipidemia Essential hypertension Type 2 diabetes mellitus COPD (chronic obstructive pulmonary disease) Atrial fibrillation Osteoarthritis Rheumatoid arthritis Surgical History Hx of goiter hx of goiter excision Hx of local excision of skin lesion left foot skin cancer removed Hx of tooth extraction Hx of hysterectomy, total had a plasma reaction when she had her hysterectomy. Was told to avoid future surgeries due to this reaction. 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 No Cartwright sign. Data 12/20/24 14:28 12/20/24 14:28 Micro: Microbiology 12/19/24 14:48 Urine Culture - Preliminary Urine,Clean Catch Gram Negative Rods A&P Assessment and plan (1) Severe acute pancreatitis: Plan After complete history, physical examination and review of all available clinical data the following is my assessmentPatient presents with moderate to severe acute pancreatitis. Over the last 24 hours there has been an downtrending of the bilirubin but there is uptrend of the white count and patient is tachycardic and borderline febrile.At this point I do not suspect that the patient's symptoms are mainly caused by her gallbladder, I do think her symptoms are most likely cause by the severity of the pancreatitis. The biliary etiology of the pancreatitis is a high probability, although there is no evidence of choledocholithiasis on MRCP but the gallbladder is full of the small stones. Additional possible sources of the pancreatitis could be the use of JAROCHO inhibitor's as patient is currently on lisinopril.At this point I do not think we should proceed with laparoscopic cholecystectomy for this patient as it has been demonstrated that in patients with moderate to severe acute pancreatitis that undergo an early cholecystectomy the risks of complications including biliary leak, conversion to open procedure, morbidity or Mickey mortality is increased. I think the best option for the patient will be to have medical management of her pancreatitis and after a cooldown period of about 4 to 6 weeks she can have an elective cholecystectomy. If there is no improvement of the vital signs or laboratory workup by tomorrow morning I will obtain CT scan of the abdomen and pelvis with IV contrast to evaluate of severity of the pancreatitis and reevaluate the gallbladder. Initial imaging the gallbladder does not appear to be thickened and there is only trace pericholecystic fluid that can be reactive from the actual pancreatitis. We will keep the patient n.p.o. overnight until we make a final decision regarding whether or not she will require surgery during this admission. I have discussed this case with my colleague Dr. Aguero and I have also discussed the case with the medical team due to the complexity of the presentation. They agree with the assessment. I have informed the patient of the findings and plan and she is agreeable. PDMP PDMP Reviewed: Not Reviewed Coding Level of Care Code 46501 Diagnoses Severe acute pancreatitis K85.90
[2024-12-20] MEDS: acetaminophen 325 mg Tablet 650 MG PO (18:19)
[2024-12-20 19:43] LABS: Chol HDL Ratio 2.49 mg/dL (0.0-4.40); Cholesterol 127 mg/dL (0-200); HDL Cholesterol 51 mg/dL (60-100); LDL Cholesterol Calculated 65 mg/dL (50-129); LDL HDL Ratio 1.27 RATIO (0.00-3.22); Triglycerides 56 mg/dL (0-150)
[2024-12-20] MEDS: ipratropium-albuterol 3 mL Neb INHALATION (19:54)
[2024-12-20] MEDS: budesonide 0.5 mg/2 mL Neb 0.25 MG INHALATION (19:55)
[2024-12-20 21:35] LABS: Glucose Point of Care 105 mg/dL (70-110)
[2024-12-21] VITALS (53 sets, daily range): BP systolic 101–167; BP diastolic 59–100; PULSE 92–213; RESP 17–33; TEMP 36.9–37.9; O2SAT 88–95
[2024-12-21] MEDS: acetaminophen 325 mg Tablet 650 MG PO (00:57)
[2024-12-21 03:22] LABS: Basophils % 0.2 %; Hematocrit 36.3 % (36-47); Lymphocytes # 1.2 10^3/uL (0.8-4.8); Lymphocytes % 6.2 %; Mean Corpuscular HGB Conc 32.2 g/dL (30-55); Mean Corpuscular Hemoglobin 29.4 pg (27-33); Mean Corpuscular Volume 91.2 fl (85-98); Mean Platelet Volume 11.4 fL (7.4-10.4); Monocytes # 0.9 10^3/uL (0.2-0.9); Monocytes % 4.7 %; Neutrophils # 17.56 10^3/uL (1.8-7.7); Nucleated Red Blood Cells % 0 %; Platelet Count 202 10^3/cmm (157-399); Red Blood Count 3.98 10^6/uL (3.85-5.65); Red Cell Distribution Width 14.6 % (12.1-15.1); White Blood Count 19.95 10^3/uL (3.29-11.43)
[2024-12-21] MEDS: lactated ringers 1,000 ML 150 ML IV (03:37)
[2024-12-21 03:42] LABS: Alanine Aminotransferase 273 U/L (0-33); Albumin Level 3.2 g/dL (3.5-5.2); Alkaline Phosphatase 133 U/L (35-105); Anion Gap 14.4 (5-19); Aspartate Amino Transferase 139 U/L (0-32); Blood Urea Nitrogen 26 mg/dL (8-23); Carbon Dioxide 25 mmol/L (22-29); Chloride 107 mmol/L (98-107); Creatinine Clr Calc Pharmacy 68.8171; Globulin 1.9 g/dL (1.3-4.6); Glucose 109 mg/dL (65-115); Osmolality Calculated 301 mOsm/kg (285-295); Potassium 3.4 mmol/L (3.5-5.1); Sodium 143 mmol/L (136-145); Total Bilirubin 1.6 mg/dL (0.15-1.2); Total Protein 5.1 g/dL (6.6-8.7)
[2024-12-21 03:43] LABS: Alanine Aminotransferase 270 U/L (0-33); Albumin Level 3.1 g/dL (3.5-5.2); Alkaline Phosphatase 127 U/L (35-105); Anion Gap 15.3 (5-19); Aspartate Amino Transferase 137 U/L (0-32); Blood Urea Nitrogen 26 mg/dL (8-23); Carbon Dioxide 25 mmol/L (22-29); Chloride 106 mmol/L (98-107); Creatinine Clr Calc Pharmacy 68.8171; Globulin 2.4 g/dL (1.3-4.6); Glucose 109 mg/dL (65-115); Osmolality Calculated 301 mOsm/kg (285-295); Potassium 3.3 mmol/L (3.5-5.1); Sodium 143 mmol/L (136-145); Total Bilirubin 1.6 mg/dL (0.15-1.2); Total Protein 5.5 g/dL (6.6-8.7)
[2024-12-21 04:00] LABS: Lipase 1964 U/L (13-60)
[2024-12-21] MEDS: adenosine 3 mg/mL SDV 2mL 6 MG IVP ×2 (05:05→07:42)
[2024-12-21] MEDS: adenosine 3 mg/mL SDV 2mL 12 MG IVP ×3 (05:10→07:45)
--- NOTE | 2024-12-21 05:20 | ECG_ITS ---
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 Measurements Intervals [place] Rate: 208 P: 0 CT: 0 QRS: 1 QRSD: 101 T: 0 QT: 213 QTc: 396 Interpretive Statements SUPRAVENTRICULAR TACHYCARDIA MARKED ST DEPRESSION, CONSIDER SUBENDOCARDIAL INJURY [0.2+ mV ST DEPRESSION] ACUTE [place] INTERPRETATION BASED ON A DEFAULT AGE OF 40 YEARS Compared to ECG 07/21/2023 13:09:58 ST (T wave) deviation now present Sinus rhythm no longer present T-wave abnormality no longer present Electronically Signed On 12-21-2024 17:43:09 CDT by Zenobia Plummer M.D. [id number]
[2024-12-21] MEDS: dilTIAZem ER (24HR) 300 mg Capsule PO (05:25)
[2024-12-21] MEDS: dilTIAZem 5 mg/mL SDV 5 mL 25 MG (05:35)
--- NOTE | 2024-12-21 05:37 | CTR_ITS ---
PROCEDURE INFORMATION: Exam: CT Abdomen And Pelvis With Contrast Exam date and time: 12/21/2024 6:16 AM Age: 69 years old Clinical indication: Abdominal pain; Epigastric; Prior surgery; Surgery date: 6+ months; Surgery type: Hysterectomy; Additional info: Severe acute pancreatitis, evaluate severity and gb wall TECHNIQUE: Imaging protocol: Computed tomography of the abdomen and pelvis with contrast. Radiation optimization: All CT scans at this facility use at least one of these dose optimization techniques: automated exposure control; mA and/or kV adjustment per patient size (includes targeted exams where dose is matched to clinical indication); or iterative reconstruction. Contrast material: OMNI 350; Contrast volume: 100 ml; Contrast route: INTRAVENOUS (IV); COMPARISON: MR MRCP [id number] 12/19/2024 4:59 PM RADIATION DOSE METRICS: Total DLP (mGy-cm): 1171.79 FINDINGS: Lungs: Dependent atelectasis in each lower lobe. Liver: Small right hepatic cyst. Gallbladder and biliary ducts: The wall of the gallbladder is minimally prominent and minimally enhancing. Adenomyomatosis may be present. The stones and sludge visible on the recent MRI exam are not appreciated on this CT scan. Pancreas: There is mild edema of the body of the pancreas. There is a small peripancreatic/retroperitoneal effusion. Spleen: Normal. No splenomegaly. Adrenal glands: Normal. No mass. Kidneys and ureters: Small bilateral renal cysts. Stomach and bowel: Diverticulosis without evidence of diverticulitis. Appendix: No evidence of appendicitis. Intraperitoneal space: There is a small amount of ascites within the abdomen. Vasculature: Unremarkable. No abdominal aortic aneurysm. Lymph nodes: Unremarkable. No enlarged lymph nodes. Urinary bladder: Unremarkable as visualized. Reproductive: Unremarkable as visualized. Bones/joints: Unremarkable. No acute fracture. Soft tissues: No well-defined pseudocyst or areas of necrosis are observed. CT/CT abdomen pelvis w con* [id number] IMPRESSION: 1. Minimally abnormal gallbladder. 2. Pancreatitis with retroperitoneal effusion and mild intra-abdominal ascites. COMMENTS: Consistent with the [employer]'s Incidental Findings Committee white paper (J Am John Radiol 2018): Any incidental renal lesion less than 1 cm or classified as too small to characterize, or any incidental cystic renal lesion characterized as simple-appearing, is likely benign. No follow-up imaging is recommended for these lesions per consensus recommendations based on imaging criteria.
--- NOTE | 2024-12-21 06:00 | PC.NURSE ---
0500 SVT noted on monitor. Followed ACLS protocol, Dr. Zhao at bedside. See MAR for medication administration.
[2024-12-21] MEDS: iohexol 350 mg/mL 500 mL Btl (per mL) IV (06:27)
[2024-12-21] MEDS: magnesium sulfate premix 2 GM/50 ML PIGGYBACK IV (06:45)
[2024-12-21] MEDS: piperacillin-tazobactam 3.375 GM in sodium chloride 0.9% (plus) 50 ML IV ×3 (06:45→22:14)
[2024-12-21] MEDS: ondansetron 2 mg/ML SDV 2 mL 4 MG IVP (06:45)
--- NOTE | 2024-12-21 06:46 | PM.PN ---
Subjective Subjective: Is a 69-year-old female who presents to the hospital with moderate to severe acute pancreatitis likely of biliary origin. Patient has remained tachycardic overnight, she developed an episode of SVT requiring adenosine around 5 AM. Abdominal pain has significantly improved although still present in the epigastrium. Vitals/I&O/Wt Last Vital Signs Temp 98.5 F 12/21/24 04:00 Pulse 118 H 12/21/24 05:30 Resp 25 H 12/21/24 05:00 BP 135/79 12/21/24 05:30 Pulse Ox 94 12/21/24 05:30 O2 Del Method Nasal Cannula 12/21/24 05:30 O2 Flow Rate 2 12/21/24 05:30 12/20/24 12/20/24 12/21/24 14:59 22:59 06:59 Intake Total 587.5 / 587.5 3468 / 4055.5 1200 / 5255.5 Output Total 100 / 100 50 / 150 Balance 587.5 / 587.5 3368 / 3955.5 1150 / 5105.5 Weight last 48 hrs Weight 248 lb 12.8 oz Weight 240 lb Physical Exam GI: OTHER: Abdomen is soft Minimally tender and nondistended. Data 12/21/24 02:45 12/21/24 02:45 Micro: Microbiology 12/19/24 14:48 Urine Culture - Preliminary Urine,Clean Catch Gram Negative Rods A&P Assessment and plan (1) Severe acute pancreatitis: (2) Pancreatitis: (3) RUQ pain: Plan Is a 69-year-old female with moderate to severe acute pancreatitis per Randolph criteria and also imaging findings. Pancreatitis is thought to be of biliary origin. Gallbladder imaging has been normal on the day of admission both on ultrasound and MRI and today we obtained an additional CT scan of the abdomen and pelvis with contrast which shows pancreatic edema with peripancreatic fluid collection and free Interval peritoneal fluid consistent with acute pancreatitis the wall of the gallbladder is minimally enhancing no actual cholecystitis noted on CT. With this findings and taking in consideration patient moderate to severe acute pancreatitis as well as recent episode of SVT I do not consider her to be a good surgical candidate for early cholecystectomy. The risk of proceeding with surgery are higher than the benefit that we will obtain. She should continue medical management of her pancreatitis with maximum benefit Therapy, IV antibiotics and hydration. In the case of clinical worsening or uptrending of the white count the next step will be to obtain a cholecystostomy tube for the patient. Once the pancreatitis subsides and patient improves a laparoscopic cholecystectomy can be program as an elective procedure in6 weeks. general surgery will continue to follow. ok to advance tto clear liquids. PDMP PDMP Reviewed: Not Reviewed Attestations Medical Necessity Statement*: per medical team Coding Level of Care Code Acute Code for [facility] Fwd Diagnoses Severe acute pancreatitis K85.90 Pancreatitis K85.90 RUQ pain R10.11
--- NOTE | 2024-12-21 07:09 | PC.NURSE ---
0500 SVT noted on monitor. Followed ACL protocol, Dr. Zhao at bedside. See MAR for medication administration.
--- NOTE | 2024-12-21 07:13 | PC.NURSE ---
New order from Dr. Zhao for 2g IV mag sulfate once, and 40 meq IV potassium chloride once.
[2024-12-21 07:32] LABS: Glucose Point of Care 99 mg/dL (70-110)
[2024-12-21] MEDS: morphine 4 mg/mL SDV 1 mL 8 MG IVP (08:01)
[2024-12-21] MEDS: midazolam 1 mg/mL INJ 2 mL 3 MG IVP (08:01)
[2024-12-21] MEDS: lidocaine 1% 5 ML in potassium chloride premix 100 ML 26.25 ML IV (08:19)
--- NOTE | 2024-12-21 08:20 | ECG_ITS ---
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 Measurements Intervals [place] Rate: 121 P: 40 KS: 129 QRS: -15 QRSD: 98 T: -1 QT: 325 QTc: 463 Interpretive Statements SINUS TACHYCARDIA POSSIBLE ANTERIOR MYOCARDIAL INFARCTION , PROBABLY OLD [30 ms Q WAVE IN V3/V4, OR R < 0.2 mV IN V4] INFERIOR MYOCARDIAL INFARCTION , PROBABLY OLD [40+ ms Q WAVE AND/OR ST/T ABNORMALITY IN II/aVF] Compared to ECG 12/21/2024 05:06:39 Myocardial infarct finding now present Supraventricular tachycardia no longer present ST (T wave) deviation no longer present Electronically Signed On 12-21-2024 17:43:01 CDT by Zenobia Plummer M.D. [email or web address]
[2024-12-21] MEDS: midazolam 1 mg/mL INJ 2 mL 2 MG (08:21)
[2024-12-21] MEDS: levothyroxine 75 mcg Tablet PO (08:21)
[2024-12-21] MEDS: budesonide 0.5 mg/2 mL Neb 0.25 MG INHALATION (08:35)
--- NOTE | 2024-12-21 09:00 | PC.NURSE ---
0730: Pt took a bite of ice, went back into SVT. rate 211. Multiple different vagal maneuvers attempts with no success of converting. Dr Lance notified via telephone , he remained on telephone . 0742: Adenosine 6mg rapid IVP admin as ordered. No rhythm changes. 0745: Adenosine 12 mg Rapid IVP admin as ordered. No rhythm changes. 0754: Difficulty obtained BP, Auscultated and Doppler 84 at brachial . heart rate 220.Pt alert and oriented. She is stating she is having a difficult time breathing. O2 increased from 2 to 4lpm. 0755: Dr Lance now at bedside. Preparing for cardioversion. RT at bedside. 0801: time out completed 0803: Versed 1.5mg admin IVP 0804: Morphine 4 mg IVp admin. 0805: Versed 1.5mg IVP admin 0807: Pt still awake. Heart rate 218. Morphine 4mg IVp admin 0810. Auscultated and Dopplered 80 at brachial 0812: Another 1mg Versed IVP admin 0813: Synchronized shock 150 joules delivered. Heart rate remains 200's. 0814: Synchronized shock 200 joules delivered. Heart rate sinus, rate 120's. 0820: Pt able to follow commands. Resp. even and unlabored. Kryder that was ordered earlier started. Cardizem IVP ordered. Will admin when available per Joseph and ISAURO.
[2024-12-21] MEDS: montelukast sodium 10 mg Tablet PO (09:02)
[2024-12-21] MEDS: dilTIAZem 5 mg/mL SDV 5 mL 30 MG IVP (09:03)
--- NOTE | 2024-12-21 09:07 | USCV_ITS ---
Priti Hurtado Age: 69 Gender: F : 1955 Exam Date: 12/21/2024 10:35 Ordering Phys: Venus Mello Technologist: [place] [facility] [place]: [place] card conversion BP: 132 / 72 HR: 76 Rhythm: Sinus Technical Quality: Adequate MEASUREMENTS (Male / Female) Normal Values 2D ECHO LV Diastolic Diameter PLAX 3.4 cm 4.2 - 5.9 / 3.9 - 5.3 cm IVS Diastolic Thickness 1.1 cm 0.6 - 1.0 / 0.6 - 0.9 cm IVS Systolic Thickness 1.3 cm LVPW Diastolic Thickness 1.0 cm 0.6 - 1.0 / 0.6 - 0.9 cm LVPW Systolic Thickness 1.5 cm LVOT Diameter 2.0 cm LV Ejection Fraction 2D Teich 63.3 % LV Ejection Fraction MOD 4C 68.4 % LV Ejection Fraction MOD 2C 59.3 % LV Ejection Fraction 2C AL 58.2 % LA Diameter 3.8 cm RA Systolic Volume 4C AL 47.9 ml RA Systolic Volume 4C MOD 46.6 ml Aorta at Sinotubular Diameter 2.7 cm M-MODE LA Ao Ratio MM 1.3 AV Cusp Separation MM 2.0 cm DOPPLER AV Peak Velocity 214.0 cm/s LVOT Peak Velocity 100.0 cm/s AV Area Cont Eq vti 1.7 cm squared AV Area Cont Eq pk 1.5 cm squared MV Peak Velocity 107.0 cm/s MV Area PHT 2.8 cm squared Mitral E to A Ratio 0.9 TR Peak Velocity 156.0 cm/s TR Peak Gradient 9.7 mmHg TV Peak E Velocity 82.0 cm/s PV Peak Velocity 111.0 cm/s FINDINGS Left Ventricle Left ventricle is normal size. LV systolic function is normal with EF of 60-65%. No regional wall abnormalities are seen. Grade 1 diastolic dysfunction. Right Ventricle Normal in size and function Right Atrium Normal in size Left Atrium Dilated Mitral Valve Mild mitral valve calcification. Trace mitral regurgitation. Aortic Valve Aortic valve is thickened. Mild aortic stenosis with aortic valve area 1.66 cm squared and mean gradient of 9 mmHg Tricuspid Valve Insufficient TR jet to calculate RVSP Pulmonic Valve Not well visualized Pericardium Normal Aorta Normal in size IVC CONCLUSIONS LV systolic function is normal with EF of 60-65%. Grade 1 diastolic dysfunction. Left atrial dilation Trace mitral regurgitation Mild aortic stenosis No comparison studies are available. Ross Bianchi MD (Electronically Signed) Final Date: 23 Dec 2024 13:06 S
[2024-12-21] MEDS: metoprolol succinate ER (24 HR) 25 mg Tablet 12.5 MG PO (10:32)
--- NOTE | 2024-12-21 11:08 | P.PN_ITS ---
Subjective 2 Subjective: Early this morning SVT, was given adenosine, Cardizem bolus, magnesium, transiently converted to sinus rhythm, however, later in the morning again with tachycardia, SVT up into 200s, without chest pain or pressure, but reporting some difficulty breathing. Awake and alert. Radial pulse present. Difficulties with obtaining a blood pressure reading. Vitals/I&O/Wt Last Vital Signs Temp 98.8 F 12/21/24 07:00 Pulse 92 12/21/24 10:00 Resp 21 H 12/21/24 10:00 BP 114/64 12/21/24 10:00 Pulse Ox 89 L 12/21/24 10:00 O2 Del Method Nasal Cannula 12/21/24 10:00 O2 Flow Rate 4 12/21/24 10:00 12/20/24 12/21/24 12/21/24 22:59 06:59 14:59 Intake Total 3468 / 4055.5 1200 / 5255.5 80 / 80 Output Total 100 / 100 50 / 150 Balance 3368 / 3955.5 1150 / 5105.5 80 / 80 Weight last 48 hrs Weight 117 kg Weight 112.854 kg Physical Exam 2 Const: COMMON NORMALS: patient oriented x3 and alert GENERAL APPEARANCE: c ooperative ORIENTATION/CONSCIOUSNESS: Yes awake HENMT: COMMON NORMALS: oropharynx normal Neck/C-Spine: COMMON NORMALS: no JVD Resp: COMMON NORMALS: normal respiratory effort and clear to auscultation bilaterally AUSCULTATION: clear to auscultation bilaterally Cardio: COMMON NORMALS: no JVD, regular rhythm, S1 normal heart sound present, S2 normal heart sound present and No murmurs present (Cardio) RATE: t achycardic RHYTHM: regular rhythm HEART SOUNDS: S1 normal heart sound present and S2 normal heart sound present GI: COMMON NORMALS: Soft to palpation PALPATION: Yes Soft to palpation and Yes Tenderness to palpation present (GI) Extremity: COMMON NORMALS: no joint enlargement and no pedal edema Neuro: COMMON NORMALS: patient oriented x3 and moves all extremities S ENSORIUM/ORIENTATION: Yes alert Skin: COMMON NORMALS: no rashes or lesions noted GENERAL SKIN EXAM: no rashes or lesions noted Data 12/21/24 02:45 12/21/24 02:45 Micro: Microbiology 12/19/24 14:48 Urine Culture - Final Urine,Clean Catch Escherichia coli A&P Assessment and plan (1) Pancreatitis: Yesterday additional liver primary studies were repeated, which showed a decrease in T. bili. Upon further evaluation, general surgery was comfortable with her admission here with further consideration of early cholecystectomy versus delayed cholecystectomy with follow-up after recovery from pancreatitis. Abdominal pain overall has improved. Lipase this morning down to 1964. T. bili with decreased at 1.6 on review, AST 37, ALT 270, alk phos down to 127. Complicated by SVT Leukocytosis down to 19.95. Surgery further reevaluated with regards to consideration of cholecystectomy today, with recurrent indicators of cholecystitis, mild pericholecystic edema on imaging, improving biliary parameters, issues with tachyarrhythmia, planning and status tube pursue delayed cholecystectomy after resolution of of pancreatitis. Okay for trial of oral intake discussion with surgery, she is requesting for some Jell-O. Discussed with her, clinical diet trial. Continue with bowel rest, sips, chips, meds, IV hydration with LR. Continue acetaminophen as needed for pain. IV morphine as needed for severe breakthrough. Reviewed vitals, CBC, CMP, lipase, triglyceride, UA, all, mrcp, er provider note, discussed with er provider, surgery note, discussed with surgery provider. (2) SVT (supraventricular tachycardia): Recurrent SVT this morning, first early in the morning initially responded to treatment with adenosine, Cardizem bolus, magnesium and was transferred to ICU, however, subsequently again in SVT, heart rates in 200s, with radial pulse, difficult to measure blood pressure. No chest pain. Initially adenosine was attempted for 6 mg then 12 mg, however, without response, blood pressure coming back in the 80s systolic, becoming more short of breath with persistent tachycardia discussed with her emergent cardioversion, risk with sedation, risk of respiratory depression, need for manual ventilatory support, intubation, ventilatory support, risk of stroke with underlying atrial fibrillation, and the risks, without guarantee that cardioversion will be successful, however, with risk of severe hemodynamic deterioration in case of lack of treatment due to hemodynamic instability and symptoms. She is agreeable to proceed. Did not respond to initial 1.5 and follow-up additional 1.5 mg of Versed for sedation with 4 mg of morphine, in total received 4 mg Versed, 8 mg of morphine. Initial attempt with 150 J, cardioverted on next attempt with 200 J. Heart rates down to 120s, appears to be in atrial flutter, blood pressure up to 140s/80s. Given a bolus of 30 mg of Cardizem with plans to start Cardizem drip, however, subsequently in sinus rhythm heart rate in 100s. Receiving replacement potassium. Continuous telemetry monitoring. Recurrent SVT discussed with technical professional on-call, appreciate consultation. (3) Cholecystitis: Discussed with surgery and with her on further surgery reevaluation, will be planning for delayed outpatient cholecystectomy after improvement from acute pancreatitis. Trial of clear liquids. Continue Zosyn for now empirically. Reviewed MRCP, cholelithiasis with mild pericholecystic edema. As above. (4) UTI (urinary tract infection): Reviewed urine culture, positive for E. coli, resistant to ampicillin. Continue treatment with Zosyn. Follow-up urine culture. Plan Atrial fibrillation with RVR: With surgery deferred at this time, may be able to resume anticoagulation, possibly with Lovenox for now. She usually takes Cardizem which has been. Monitor on telemetry. MARYCARMEN: Does not wear CPAP Hypothyroidism: Levothyroxine DM2: Currently NPO. Hypoglycemia protocol. COPD: Not in exacerbation, DuoNebs as needed. Budesonide. Osteoarthritis RA PDMP PDMP Reviewed: Not Reviewed Attestations 2 Medical Necessity Statement*: Admission over 2 midnights needed for assessment management of acute pancreatitis, cholecystitis, SVT, UTI. Coding Level of Care Code Critical Care >/= 30 minutes Critical care time (in minutes): 40 The high probability of a clinically significant, sudden or life threatening deterioration, as referenced in this documentation, required my full and direct attention, intervention and personal management. The critical care time shown is in addition to time spent performing any reported separately billable procedures and includes the following: [x] Data and vital sign review and interpretation [x ] Patient assessment, examination and intervention [x] Medication orders and management [x] Patient/Family updates as able [x] Care Coordination and Documentation. Diagnoses Pancreatitis K85.90 SVT (supraventricular tachycardia) I47.10 Cholecystitis K81.9 UTI (urinary tract infection) N39.0
[2024-12-21] MEDS: sodium chloride 0.9% 1,000 ML 50 ML IV (11:21)
[2024-12-21] MEDS: pantoprazole 40 mg SDV IVP (11:45)
[2024-12-21 11:46] LABS: Glucose Point of Care 101 mg/dL (70-110)
[2024-12-21] MEDS: enoxaparin 40 mg/0.4 mL Syringe SUBCUT (11:46)
--- NOTE | 2024-12-21 12:10 | P.CONIM_ITS ---
<Statement entered by Carlos Aguilar MD - 12/21/24 20:52> Patient was evaluated and cared for in conjunction with an advanced practice practitioner. I personally examined the patient and reviewed the chart and all pertinent data including imaging, telemetry, and laboratory results. I discussed the patient in detail with the advanced practice practitioner. Please see their note for complete H&P testing result and agreed upon plan of care for the patient. As defined below patient had multiple episodes of supraventricular tachycardia post surgery, she was cardioverted and given adenosine GENERAL: Patient is oriented and arousable HEART: Regular S1 and S2. No murmur, rub or gallop. LUNGS: Clear to auscultate bilaterally. CENTRAL NERVOUS SYSTEM: Grossly nonfocal. EXTREMITIES: Lower extremities with out edema bilaterally. Assessment and plan Supraventricular tachycardia difficult to control Postoperative state IV fluids to be continued for rehydration reduce adrenergic response Add beta-zarina metoprolol 12.5 mg p.o. twice daily Continue calcium channel zarina Continue to monitor if patient goes back into supraventricular tachycardia for the time being may can be started on IV amiodarone Echocardiogram will be obtained further plan will be advised as per progress of the patient Providers/Reason For Consult 2 Consulting Physician/Specialty*: Dr Marleny Aguilar, cardiology Reason for Consult*: Atrial fibrillation with RVR and SVT, required cardioversion Requesting Physician: Dr. Lance Attending Physician: Chandrakant Lance Primary Care Provider: Sudheer Ivy History of Present Illness History of Present Illness Priti Hurtado is a 69 year old female with past medical history of atrial fibrillation, hypertension, anticoagulation with apixaban. She was admitted 12/19/2024 for nausea/vomiting/diarrhea found to have acute pancreatitis, cholelithiasis. WBC 19, AST 137, ALT 270. She developed SVT earlier this morning, converted to sinus rhythm with adenosine and diltiazem bolus, then had recurrence of SVT with heart rates in the 200s. At that time she developed hemodynamic instability and underwent cardioversion, which restored sinus rhythm. At the time of my exam she is in sinus rhythm, blood pressures in the 110's systolic. She notes she had not had diltiazem (takes 300 mg daily at home) since admission due to possibility of transfer to another facility for surgical intervention. At this time, general surgery plans for lap cholecystectomy in 6 weeks after acute pancreatitis has resolved. Her diet has been advanced to clear liquids currently. Review of Systems 2 Const: Denies: fever(s), chills, change in weight, fatigue or diaphoresis Eyes: Denies: change in vision ENMT: Denies: epistaxis Card: Denies: chest pain, palpitations, irregular heart rhythm, edema, syncope, pre-syncope, dyspnea on exertion, orthopnea or leg pain with exertion Resp: Denies: dyspnea, productive cough or wheezing GI: Denies: nausea, vomiting, hematemesis, hematochezia or melena : Denies: hematuria Musc: Denies: extremity swelling Joel/Lymph: Denies: easy bruising or easy bleeding Medications/Allergies Home Medications ?Medication ?Instructions ?Recorded ?Confirmed ?Last Taken ?Type blood sugar diagnostic (OneTouch #100 ea 01/27/2401/08 Unknown Rx Verio test strips) blood-glucose meter (OneTouch #1 ea 01/27/24 12/19/24 Unknown Rx Verio Flex Meter) lancets #100 ea 01/27/24 12/19/24 Un known Rx albuterol sulfate 90 mcg/actuation 2 puff inhalation Q ID PRN 09/26/24 12/19/24 Unknown Rx aerosol inhaler (Ventolin HFA) shortness of breath or wheezing #6.7 grams apixaban 5 mg tablet (Eliquis) 5 mg PO BID #60 tabs 12/19/24 12/18/24 Rx atorvastatin 20 mg tablet 20 mg PO BEDTIME #30 tabs 12/20/24 12/18/24 Rx mometasone-formoterol HFA 100 2 puff inhalation BID #1 3 grams 09/26/24 12/19/24 12/18/24 Rx mcg-5 mcg/actuation aerosol inhaler (Dulera) allopurinol 300 mg tablet 300 mg PO QPM 12/20/2412/2012/18/24 History diltiazem HCl 300 mg capsule,24 300 mg PO QAM 12/20/24 12/20/24 12/18/24 History hr,extended release levothyroxine 75 mcg capsule 75 mcg PO QAM 12/20/2412/18/24 History lisinopril 20 mg tablet 20 mg PO QAM 12/20/2412/19/24 History metformin 500 mg tablet 500 mg PO .NOON 12/20/2402/0812/19/24 History montelukast 10 mg tablet 10 mg PO .NOON 12/20/24 05/02/0812/18/24 History (Singulair) multivitamin 1 tab PO QAM 12/20/2412/19/24 History Allergies Allergy/AdvReac Type Severity Reaction Status Date / Time No Known Allergies Allergy Verified 12/19/24 09:32 Current Medications Generic Name Dose Route Start Last Admin Trade Name Freq PRN Reason Stop Dose Admin Acetaminophen 650 mg 12/20/24 11:30 12/21/24 00:57 Acetaminophen 325 Mg Tablet PO 650 mg Q6H PRN Administration Mild/Mod Pain Or Temp >/= 101 Albuterol/Ipratropium 3 ml 12/20/24 11:07 12/20/24 19:54 Ipratropium-Albuterol 3 Ml Neb INHALATION 3 ml Q6H PRN Administration SHORTNESS OF BREATH Budesonide 0.25 mg 12/20/24 20:00 12/21/24 08:35 Budesonide 0.5 Mg/2 Ml Neb INHALATION 0.25 mg BID.RESPIRATORY TONY Administration Diltiazem HCl 300 mg 12/21/24 06:00 12/21/24 05:25 Diltiazem Er (24hr) 300 Mg Capsule PO 300 mg QAM TONY Administration Enoxaparin Sodium 40 mg 12/20/24 11:30 12/21/24 11:46 Enoxaparin 40 Mg/0.4 Ml Syringe SUBCUT 40 mg Q24H TONY Administration Piperacillin Sod/Tazobactam 50 mls @ 12.5 mls/hr 12/20/24 14:00 12/21/24 10:45 Sod 3.375 gm/ Sodium Chloride IV Infused Q8H TONY Infusion Protocol Sodium Chloride 1,000 mls @ 50 mls/hr 12/21/24 10:35 12/21/24 11:21 Sodium Chloride 0.9% IV 50 mls/hr .Q20H TONY Administration Levothyroxine Sodium 75 mcg 12/21/24 06:00 12/21/24 08:21 Levothyroxine 75 Mcg Tablet PO 75 mcg QAM TONY Administration Metoprolol Succinate 12.5 mg 12/21/24 10:15 12/21/24 10:32 Metoprolol Succinate Er (24 Hr) 25 Mg Tablet PO 12.5 mg DAILY TONY Administration Montelukast Sodium 10 mg 12/21/24 09:00 12/21/24 09:02 Montelukast Sodium 10 Mg Tablet PO 10 mg DAILY TONY Administration Ondansetron HCl 4 mg 12/20/24 11:30 12/21/24 06:45 Ondansetron 2 Mg/Ml Sdv 2 Ml IVP 4 mg Q8H PRN Administration vomiting, or N/V if npo Pantoprazole Sodium 40 mg 12/20/24 11:30 12/21/24 11:45 Pantoprazole 40 Mg Sdv IVP 40 mg Q24H TONY Administration PFSH Acute 2 PFSH: Medical History Enrolled in chronic care management MARYCARMEN (obstructive sleep apnea) hx of diagnosed marycarmen, not on cpap Hypothyroidism Chronic anticoagulation Chronic gout Hyperlipidemia Essential hypertension Type 2 diabetes mellitus COPD (chronic obstructive pulmonary disease) Atrial fibrillation Osteoarthritis Rheumatoid arthritis Surgical History Hx of goiter hx of goiter excision Hx of local excision of skin lesion left foot skin cancer removed Hx of tooth extraction Hx of hysterectomy, total had a plasma reaction when she had her hysterectomy. Was told to avoid future surgeries due to this reaction. 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 Vitals/I&O/Wt Last Vital Signs Temp 98.8 F 12/21/24 07:00 Pulse 92 12/21/24 10:00 Resp 21 H 12/21/24 10:00 BP 114/64 12/21/24 10:00 Pulse Ox 89 L 12/21/24 10:00 O2 Del Method Nasal Cannula 12/21/24 10:00 O2 Flow Rate 4 12/21/24 10:00 12/20/24 12/21/24 12/21/24 22:59 06:59 14:59 Intake Total 3468 / 5255.5 1200 / 5255.5 130 / 130 Output Total 100 / 150 50 / 150 Balance 3368 / 5105.5 1150 / 5105.5 130 / 130 Weight last 48 hrs Weight 257 lb 15.053 oz Weight 248 lb 12.8 oz Physical Exam 2 Const: COMMON NORMALS: no acute distress and patient oriented x3 GENERAL APPEARANCE: cooperative and comfortable ORIENTATION/CONSCIOUSNESS: Yes awake, Yes oriented to person, Yes oriented to place and Yes oriented to time Chest: COMMONS NORMALS: normal inspection of the chest and normal palpation of entire chest wall CHEST: Yes Symmetrical chest wall rise Resp: COMMON NORMALS: normal respiratory effort, No retractions, No use of accessory muscles and clear to auscultation bilaterally EFFORT & INSPECTION: Yes symmetric chest movement AUSCULTATION: clear to auscultation bilaterally Cardio: COMMON NORMALS: regular rate, regular rhythm, S1 normal heart sound present, S2 normal heart sound present, No gallops present (Cardio), No clicks present (Cardio), No murmurs present (Cardio) and No rub (Cardio) RATE: r egular rate RHYTHM: regular rhythm HEART SOUNDS: S1 normal heart sound present and S2 normal heart sound present PERIPHERAL PULSES: radial pulses present Extremity: COMMON NORMALS: no pedal edema Neuro: COMMON NORMALS: patient oriented x3 and moves all extremities S ENSORIUM/ORIENTATION: Yes oriented to person, Yes oriented to place and Yes oriented to time Data 12/21/24 02:45 12/21/24 02:45 Micro: Microbiology 12/19/24 14:48 Urine Culture - Final Urine,Clean Catch Escherichia coli A&P Assessment and plan (1) SVT (supraventricular tachycardia): (2) Atrial fibrillation: (3) Chronic anticoagulation: (4) Essential hypertension: Plan Will plan for echocardiogram to evaluate LV function. For now we will gently rehydrate with IV fluid, start metoprolol succinate 12.5 mg daily and continue diltiazem 300 mg daily. Potassium was 3.3 this morning has been replaced. Monitor telemetry closely for arrhythmia. PDMP PDMP Reviewed: Not Reviewed Coding Level of Care Code Acute Code for Chg Fwd Diagnoses SVT (supraventricular tachycardia) I47.10 Atrial fibrillation, unspecified type I48.91 Atrial fibrillation type: unspecified Chronic anticoagulation Z79.01 Essential hypertension I10
[2024-12-21 17:35] LABS: Glucose Point of Care 120 mg/dL (70-110)
--- NOTE | 2024-12-21 18:48 | PC.NURSE ---
Shift summary: Pt has rested in bed throughout shift with trips to the [facility] [place] She has a tendency to hunch over and not stand up straight. We have encouraged her repeatedly to stand up straight to help her back and her stomach not hurt as much. She had that SVT episode with cardioversion this am ( see the note). She has remained in sinus rhythm since. Her highest temp today was 99.6. She has ate her clear liquid diet well. She started off slow to gauge her tolerance of eating. She has had some belching after meals. She has not requested pain medication this shift for her abdomen.
[2024-12-21] MEDS: morphine 4 mg/mL SDV 1 mL 2 MG IVP (20:37)
[2024-12-21 21:14] LABS: Glucose Point of Care 124 mg/dL (70-110)
[2024-12-22] VITALS (34 sets, daily range): BP systolic 112–171; BP diastolic 68–107; PULSE 80–104; RESP 16–27; TEMP 36.6–37.6; O2SAT 91–95
[2024-12-22] MEDS: morphine 4 mg/mL SDV 1 mL 2 MG IVP ×4 (00:49→20:30)
[2024-12-22 05:00] LABS: Basophils % 0.3 %; Eosinophils % 0.2 %; Hematocrit 34.1 % (36-47); Lymphocytes # 1.6 10^3/uL (0.8-4.8); Mean Corpuscular Hemoglobin 29.2 pg (27-33); Mean Corpuscular Volume 91.4 fl (85-98); Mean Platelet Volume 11.8 fL (7.4-10.4); Monocytes # 0.9 10^3/uL (0.2-0.9); Monocytes % 5.6 %; Neutrophils # 13.29 10^3/uL (1.8-7.7); Neutrophils % 83.3 %; Nucleated Red Blood Cells % 0 %; Platelet Count 192 10^3/cmm (157-399); Red Blood Count 3.73 10^6/uL (3.85-5.65); Red Cell Distribution Width 14.8 % (12.1-15.1); White Blood Count 15.94 10^3/uL (3.29-11.43)
[2024-12-22 05:29] LABS: Alanine Aminotransferase 162 U/L (0-33); Albumin Level 2.9 g/dL (3.5-5.2); Alkaline Phosphatase 128 U/L (35-105); Anion Gap 13.6 (5-19); Aspartate Amino Transferase 51 U/L (0-32); Blood Urea Nitrogen 18 mg/dL (8-23); Calcium 6.9 mg/dL (8.5-10.5); Carbon Dioxide 24 mmol/L (22-29); Chloride 104 mmol/L (98-107); Globulin 2.9 g/dL (1.3-4.6); Glomerular Filtration Rate 62.1 mL/min (90-130); Glucose 102 mg/dL (65-115); Osmolality Calculated 288 mOsm/kg (285-295); Potassium 3.6 mmol/L (3.5-5.1); Sodium 138 mmol/L (136-145); Total Bilirubin 1.2 mg/dL (0.15-1.2); Total Protein 5.8 g/dL (6.6-8.7)
[2024-12-22 05:30] LABS: Magnesium 2.1 mg/dL (1.7-2.3)
[2024-12-22] MEDS: piperacillin-tazobactam 3.375 GM in sodium chloride 0.9% (plus) 50 ML IV ×3 (05:43→23:26)
[2024-12-22] MEDS: levothyroxine 75 mcg Tablet PO (05:44)
[2024-12-22] MEDS: dilTIAZem ER (24HR) 300 mg Capsule PO (05:44)
--- NOTE | 2024-12-22 06:56 | P.PN_ITS ---
Subjective 2 Subjective: Patient doing well overnight, abdominal pain has significantly improved. No other acute events Vitals/I&O/Wt Last Vital Signs Temp 98.2 F 12/22/24 04:00 Pulse 90 12/22/24 06:00 Resp 20 H 12/22/24 06:00 BP 151/77 12/22/24 06:00 Pulse Ox 92 12/22/24 06:00 O2 Del Method Nasal Cannula 12/22/24 06:00 O2 Flow Rate 3 12/22/24 06:00 12/21/24 12/21/24 12/22/24 14:59 22:59 06:59 Intake Total 735 / 735 1670 / 2405 530 / 2935 Output Total 200 / 200 Balance 735 / 735 1670 / 2405 330 / 2735 Weight last 48 hrs Weight 265 lb 10.512 oz Weight 265 lb 10.512 oz Weight 257 lb 15.053 oz Weight 248 lb 12.8 oz Physical Exam 2 GI: OTHER: Abdomen is soft, there is mild tenderness in the epigastrium. Data 12/22/24 03:45 12/22/24 03:45 Micro: Microbiology 12/19/24 14:48 Urine Culture - Final Urine,Clean Catch Escherichia coli A&P Assessment and plan (1) Pancreatitis: Plan Overall there is good progression. Pancreatitis appears to be improving. White count has trended down to 15. Vital signs are stable. Abdominal examination is benign. Patient BMs but plans to a full liquid diet. Plan will be to advance to a GI soft diet in the next 24 to 48 hours and after that patient can be discharged on a GI soft diet and follow-up as outpatient. I will see the patient in the clinic in 2 weeks and we will plan to do an elective cholecystectomy in 4 to 6 weeks. PDMP PDMP Reviewed: Not Reviewed Attestations 2 Medical Necessity Statement*: Per medical team Coding Level of Care Code Acute Code for [facility] Diagnoses Pancreatitis K85.90
[2024-12-22] MEDS: sodium chloride 0.9% 1,000 ML 50 ML IV (07:33)
[2024-12-22 07:56] LABS: Glucose Point of Care 118 mg/dL (70-110)
[2024-12-22] MEDS: metoprolol succinate ER (24 HR) 25 mg Tablet 12.5 MG PO ×2 (09:03→10:42)
[2024-12-22] MEDS: montelukast sodium 10 mg Tablet PO (09:03)
--- NOTE | 2024-12-22 09:26 | P.PN_ITS ---
Subjective 2 Subjective: She denies any new symptoms. No chest pain or pressure. Is not short of breath at this time. She has not had any further tachycardia. Vitals/I&O/Wt Last Vital Signs Temp 98.2 F 12/22/24 04:00 Pulse 94 12/22/24 09:00 Resp 20 H 12/22/24 09:00 BP 136/85 12/22/24 09:00 Pulse Ox 94 12/22/24 09:00 O2 Del Method Nasal Cannula 12/22/24 08:00 O2 Flow Rate 3 12/22/24 08:00 12/21/24 12/22/24 12/22/24 22:59 06:59 14:59 Intake Total 1670 / 2405 530 / 2935 1400 / 1400 Output Total 200 / 200 Balance 1670 / 2405 330 / 2735 1400 / 1400 Weight last 48 hrs Weight 120.5 kg Weight 120.5 kg Weight 117 kg Weight 112.854 kg Physical Exam 2 Const: COMMON NORMALS: patient oriented x3 and alert GENERAL APPEARANCE: c ooperative ORIENTATION/CONSCIOUSNESS: Yes awake HENMT: COMMON NORMALS: oropharynx normal Neck/C-Spine: COMMON NORMALS: no JVD Resp: COMMON NORMALS: normal respiratory effort and clear to auscultation bilaterally AUSCULTATION: clear to auscultation bilaterally Cardio: COMMON NORMALS: no JVD, regular rhythm, S1 normal heart sound present, S2 normal heart sound present and No murmurs present (Cardio) RATE: t achycardic RHYTHM: regular rhythm HEART SOUNDS: S1 normal heart sound present and S2 normal heart sound present GI: COMMON NORMALS: Soft to palpation PALPATION: Yes Soft to palpation and Yes Tenderness to palpation present (GI) Extremity: COMMON NORMALS: no joint enlargement and no pedal edema Neuro: COMMON NORMALS: patient oriented x3 and moves all extremities S ENSORIUM/ORIENTATION: Yes alert Skin: COMMON NORMALS: no rashes or lesions noted GENERAL SKIN EXAM: no rashes or lesions noted Data 12/22/24 03:45 12/22/24 03:45 Micro: Microbiology 12/19/24 14:48 Urine Culture - Final Urine,Clean Catch Escherichia coli A&P Assessment and plan (1) Pancreatitis: Has been gradually improving. Abdominal pain has been subsiding. Reviewed CBC, leukocytosis with gradual improvement, today down to 16. Has been reassessed by surgery, reviewed note. Progressing to trial of full liquid diet. Tolerated clears well without nausea or vomiting. He was tolerating full liquids, advance to trial of GI soft diet. Reviewed chemistry, without hyponatremia, potassium 3.6. Will give additional potassium. Reviewed chemistry, T. bili further down to 1.2. Alk phos was down to 128. Upon further evaluation, general surgery was comfortable with her admission here with further consideration of early cholecystectomy versus delayed cholecystectomy with follow-up after recovery from pancreatitis. Abdominal pain overall has improved. Complicated by SVT, so far without recurrence. Surgery further reevaluated with regards to consideration of cholecystectomy today, with recurrent indicators of cholecystitis, mild pericholecystic edema on imaging, improving biliary parameters, issues with tachyarrhythmia, planning and status tube pursue delayed cholecystectomy after resolution of of pancreatitis. DC IVF. Continue acetaminophen as needed for pain. IV morphine as needed for severe breakthrough. (2) SVT (supraventricular tachycardia): Reviewed cardiology note, discussed w environmental field office manager, appreciate consultation. Agree with addition of metoprolol which they may further adjust today, and continuing Cardizem. Monitor for risk of hypotension with combination of Cardizem and metoprolol. Reviewed K, 3.6, will request additional supplement. reviewed Mg, and it is Ok. Repeat chemistry. Continuous telemetry monitoring. (3) Cholecystitis: Reviewed surgery note. Advancing to trial of diet. Cont Zosyn for now. Discussed with surgery and with her on further surgery reevaluation, will be planning for delayed outpatient cholecystectomy after improvement from acute pancreatitis. Trial of advancement of diet Reviewed MRCP, cholelithiasis with mild pericholecystic edema. Mild pericholecystic changes on CT reassessment. As above. (4) UTI (urinary tract infection): Reviewed urine culture, positive for E. coli, resistant to ampicillin. Continue treatment with Zosyn. Plan Atrial fibrillation with RVR: With surgery deferred at this time, may be able to resume anticoagulation, possibly with Lovenox for now. She usually takes Cardizem which has been. Monitor on telemetry. MARYCARMEN: Does not wear CPAP Hypothyroidism: Levothyroxine DM2: Currently NPO. Hypoglycemia protocol. COPD: Not in exacerbation, DuoNebs as needed. Budesonide. Osteoarthritis RA PDMP PDMP Reviewed: Not Reviewed Attestations 2 Medical Necessity Statement*: Admission over 2 midnights needed for assessment management of acute pancreatitis, cholecystitis, SVT, UTI. and High MDM includes amount and/or complexity of data reviewed/ordered [ previous or external records, resulted lab(s)/test(s) and other healthcare professional discussion] and described risk of complication, morbidity or mortality of management as documented Diagnoses Pancreatitis K85.90 SVT (supraventricular tachycardia) I47.10 Cholecystitis K81.9 UTI (urinary tract infection) N39.0
[2024-12-22] MEDS: potassium chloride ER 20 mEq Tablet PO (10:03)
--- NOTE | 2024-12-22 10:04 | P.PN_ITS ---
<Statement entered by Carlos Aguilar MD - 12/22/24 22:26> Patient was evaluated and cared for in conjunction with an advanced practice practitioner. I personally examined the patient and reviewed the chart and all pertinent data including imaging, telemetry, and laboratory results. I discussed the patient in detail with the advanced practice practitioner. Please see their note for complete H&P testing result and agreed upon plan of care for the patient. Heart rate steadily improving no more significant event overnight GENERAL: Patient is alert, awake and oriented x3. HEART: Regular S1 and S2. No murmur, rub or gallop. LUNGS: Clear to auscultate bilaterally. CENTRAL NERVOUS SYSTEM: Grossly nonfocal. EXTREMITIES: Lower extremities with out edema bilaterally. Assessment and plan Supraventricular tachycardia Hypertension Increase metoprolol to 25 mg twice daily Continue calcium channel zarina 300 mg p.o. day Cardizem Continue to monitor Subjective 2 Subjective: No arrhythmia events overnight. Blood pressure is ranging 130-150 systolic, heart rates 90 to 100 bpm. Will increase metoprolol succinate to 25 mg daily, continue diltiazem 300 mg daily. She appears to be slightly volume overloaded and urine output has been low. Will stop IV fluid and order a dose of Lasix for diuresis. Vitals/I&O/Wt Last Vital Signs Temp 98.2 F 12/22/24 04:00 Pulse 94 12/22/24 09:00 Resp 20 H 12/22/24 09:00 BP 136/85 12/22/24 09:00 Pulse Ox 94 12/22/24 09:00 O2 Del Method Nasal Cannula 12/22/24 08:00 O2 Flow Rate 3 12/22/24 08:00 12/21/24 12/22/24 12/22/24 22:59 06:59 14:59 Intake Total 1670 / 2935 530 / 2935 1400 / 1400 Output Total 200 / 200 Balance 1670 / 2735 330 / 2735 1400 / 1400 Weight last 48 hrs Weight 265 lb 10.512 oz Weight 265 lb 10.512 oz Weight 257 lb 15.053 oz Weight 248 lb 12.8 oz Physical Exam 2 Const: COMMON NORMALS: no acute distress and patient oriented x3 GENERAL APPEARANCE: cooperative and comfortable ORIENTATION/CONSCIOUSNESS: Yes awake, Yes oriented to person, Yes oriented to place and Yes oriented to time Chest: COMMONS NORMALS: normal inspection of the chest and normal palpation of entire chest wall CHEST: Yes Symmetrical chest wall rise Resp: COMMON NORMALS: normal respiratory effort, No retractions, No use of accessory muscles and clear to auscultation bilaterally (scattered crackles) EFFORT & INSPECTION: Yes symmetric chest movement AUSCULTATION: clear to auscultation bilaterally (scattered crackles) Cardio: COMMON NORMALS: regular rate, regular rhythm, S1 normal heart sound present, S2 normal heart sound present, No gallops present (Cardio), No clicks present (Cardio), No murmurs present (Cardio) and No rub (Cardio) RATE: r egular rate RHYTHM: regular rhythm HEART SOUNDS: S1 normal heart sound present and S2 normal heart sound present PERIPHERAL PULSES: radial pulses present Extremity: COMMON NORMALS: no pedal edema Neuro: COMMON NORMALS: patient oriented x3 and moves all extremities S ENSORIUM/ORIENTATION: Yes oriented to person, Yes oriented to place and Yes oriented to time Data 12/22/24 03:45 12/22/24 03:45 Micro: Microbiology 12/19/24 14:48 Urine Culture - Final Urine,Clean Catch Escherichia coli A&P Assessment and plan (1) SVT (supraventricular tachycardia): (2) Essential hypertension: Plan Remains in sinus rhythm. Will continue diltiazem 300 mg daily, increase metoprolol succinate to 25 mg daily to control both heart rate and blood pressure. One-time dose of Lasix to encourage diuresis. PDMP PDMP Reviewed: Not Reviewed Attestations 2 Medical Necessity Statement*: Per hospitalist Coding Level of Care Code Acute Code for [facility] Diagnoses SVT (supraventricular tachycardia) I47.10 Essential hypertension I10
[2024-12-22] MEDS: ondansetron 2 mg/ML SDV 2 mL 4 MG IVP ×2 (10:40→18:22)
[2024-12-22] MEDS: enoxaparin 40 mg/0.4 mL Syringe SUBCUT (10:42)
[2024-12-22] MEDS: FUROsemide 10 mg/mL SDV 2mL 20 MG IVP (10:42)
[2024-12-22] MEDS: pantoprazole 40 mg SDV IVP (10:42)
[2024-12-22 12:00] LABS: Glucose Point of Care 119 mg/dL (70-110)
[2024-12-22 18:30] LABS: Glucose Point of Care 123 mg/dL (70-110)
[2024-12-22 22:08] LABS: Glucose Point of Care 119 mg/dL (70-110)
[2024-12-23] VITALS (25 sets, daily range): BP systolic 117–147; BP diastolic 71–92; PULSE 81–102; RESP 6–28; TEMP 36.2–37.5; O2SAT 90–95
--- NOTE | 2024-12-23 01:19 | PC.NURSE ---
Report given to KIESHA Diallo. Assuming care of pt at this time.
[2024-12-23] MEDS: ondansetron 2 mg/ML SDV 2 mL 4 MG IVP ×2 (03:38→11:06)
[2024-12-23 03:57] LABS: Basophils % 0.2 %; Eosinophils # 0.1 10^3/uL (0.0-0.8); Eosinophils % 0.6 %; Hematocrit 32.1 % (36-47); Lymphocytes # 1.3 10^3/uL (0.8-4.8); Lymphocytes % 9.5 %; Mean Corpuscular HGB Conc 32.4 g/dL (30-55); Mean Corpuscular Hemoglobin 29.5 pg (27-33); Mean Corpuscular Volume 91.2 fl (85-98); Mean Platelet Volume 11.6 fL (7.4-10.4); Monocytes # 0.9 10^3/uL (0.2-0.9); Monocytes % 6.1 %; Neutrophils # 11.74 10^3/uL (1.8-7.7); Nucleated Red Blood Cells % 0 %; Platelet Count 203 10^3/cmm (157-399); Red Blood Count 3.52 10^6/uL (3.85-5.65); Red Cell Distribution Width 14.6 % (12.1-15.1); White Blood Count 14.16 10^3/uL (3.29-11.43)
[2024-12-23 04:18] LABS: Alanine Aminotransferase 101 U/L (0-33); Albumin Level 2.7 g/dL (3.5-5.2); Alkaline Phosphatase 101 U/L (35-105); Anion Gap 13.5 (5-19); Aspartate Amino Transferase 25 U/L (0-32); Blood Urea Nitrogen 13 mg/dL (8-23); Calcium 6.9 mg/dL (8.5-10.5); Carbon Dioxide 24 mmol/L (22-29); Chloride 100 mmol/L (98-107); Creatinine Clr Calc Pharmacy 89.2258; Globulin 2.8 g/dL (1.3-4.6); Glucose 103 mg/dL (65-115); Osmolality Calculated 278 mOsm/kg (285-295); Potassium 3.5 mmol/L (3.5-5.1); Sodium 134 mmol/L (136-145); Total Bilirubin 0.7 mg/dL (0.15-1.2); Total Protein 5.5 g/dL (6.6-8.7)
[2024-12-23] MEDS: levothyroxine 75 mcg Tablet PO (05:57)
[2024-12-23] MEDS: dilTIAZem ER (24HR) 300 mg Capsule PO (05:57)
[2024-12-23] MEDS: piperacillin-tazobactam 3.375 GM in sodium chloride 0.9% (plus) 50 ML IV ×3 (05:57→22:03)
[2024-12-23] MEDS: morphine 4 mg/mL SDV 1 mL 2 MG IVP (06:18)
--- NOTE | 2024-12-23 07:51 | P.PN_ITS ---
Subjective 2 Subjective: 69-year-old female with moderate to silvestre re acute pancreatitis of biliary origin. Good progression over the last 24 hours, vital signs are stable, abdominal pain has improved, she had 2 bowel movements this morning. Vitals/I&O/Wt Last Vital Signs Temp 97.2 F L 12/23/24 04:30 Pulse 94 12/23/24 07:51 Resp 6 L 12/23/24 07:51 BP 145/80 12/23/24 06:00 Pulse Ox 95 12/23/24 07:51 O2 Del Method Nasal Cannula 12/23/24 07:51 O2 Flow Rate 3 12/23/24 07:51 12/22/24 12/23/24 12/23/24 22:59 06:59 14:59 Intake Total 50 / 1750 530 / 2280 Output Total 200 / 450 200 / 650 Balance -150 / 1300 330 / 1630 Weight last 48 hrs Weight 265 lb 10.512 oz Weight 265 lb 10.512 oz Physical Exam 2 GI: OTHER: Abdominal exam is benign abdomen soft minimal tender to palpation. Data 12/23/24 03:17 12/23/24 03:17 A&P Assessment and plan (1) RUQ pain: (2) Pancreatitis: Plan Overall showing good progression, white count continues to trend Down is 14.1 today. Patient abdominal pain has significantly improved. I would recommend that we continue her on a full liquid diet today with plan to advance to GI soft tomorrow PriorTo discharge. The plan from the general surgery standpoint as previously indicated will be to see the patient the next couple of weeks and then proceed to schedule an elective cholecystectomy as outpatient once acute inflammation from the moderate to severe pancreatitis has completely subsided. PDMP PDMP Reviewed: Not Reviewed Attestations 2 Medical Necessity Statement*: Per medical team Coding Level of Care Code Acute Code for [facility] Diagnoses RUQ pain R10.11 Pancreatitis K85.90
[2024-12-23] MEDS: montelukast sodium 10 mg Tablet PO (08:10)
[2024-12-23] MEDS: metoprolol succinate ER (24 HR) 25 mg Tablet PO (08:11)
--- NOTE | 2024-12-23 09:51 | PC.SOCIAL ---
IMM Updated Updated pt on IMM. No questions voiced. Provided pt a copy. Initialed, dated, & timed a copy & placed in chart.
[2024-12-23] MEDS: pantoprazole 40 mg SDV IVP (11:05)
[2024-12-23] MEDS: enoxaparin 40 mg/0.4 mL Syringe SUBCUT (11:06)
--- NOTE | 2024-12-23 11:06 | P.PN_ITS ---
<Statement entered by Carlos Aguilar MD - 12/23/24 18:17> Patient was evaluated and cared for in conjunction with an advanced practice practitioner. I personally examined the patient and reviewed the chart and all pertinent data including imaging, telemetry, and laboratory results. I discussed the patient in detail with the advanced practice practitioner. Please see their note for complete H&P testing result and agreed upon plan of care for the patient. No more arrhythmia noted heart rate is low but tachycardic remains in sinus rhythm GENERAL: Patient is alert, awake and oriented x3. HEART: Regular S1 and S2. No murmur, rub or gallop. LUNGS: Clear to auscultate bilaterally. CENTRAL NERVOUS SYSTEM: Grossly nonfocal. EXTREMITIES: Lower extremities with out edema bilaterally. Assessment and plan Supraventricular tachycardia Hypertension Increase metoprolol to 37.5 mg p.o. twice daily Subjective 2 Subjective: No arrhythmias overnight, she is in sinus rhythm this morning. Has had good control of heart rate and blood pressure. Urine output has been around 650 yesterday. Continue diltiazem 300 mg daily, will increase metoprolol succinate to 37.5 mg daily. Vitals/I&O/Wt Last Vital Signs Temp 99.5 F 12/23/24 08:00 Pulse 81 12/23/24 10:00 Resp 20 H 12/23/24 10:00 BP 129/81 12/23/24 10:00 Pulse Ox 93 12/23/24 10:00 O2 Del Method Nasal Cannula 12/23/24 10:00 O2 Flow Rate 2 12/23/24 10:00 12/22/24 12/23/24 12/23/24 22:59 06:59 14:59 Intake Total 50 / 2280 530 / 2280 200 / 200 Output Total 200 / 650 200 / 650 Balance -150 / 1630 330 / 1630 200 / 200 Weight last 48 hrs Weight 265 lb 10.512 oz Weight 265 lb 10.512 oz Physical Exam 2 Const: COMMON NORMALS: no acute distress and patient oriented x3 GENERAL APPEARANCE: cooperative and comfortable ORIENTATION/CONSCIOUSNESS: Yes awake, Yes oriented to person, Yes oriented to place and Yes oriented to time Chest: COMMONS NORMALS: normal inspection of the chest and normal palpation of entire chest wall CHEST: Yes Symmetrical chest wall rise Resp: COMMON NORMALS: normal respiratory effort, No retractions, No use of accessory muscles and clear to auscultation bilaterally EFFORT & INSPECTION: Yes symmetric chest movement AUSCULTATION: clear to auscultation bilaterally Cardio: COMMON NORMALS: regular rate, regular rhythm, S1 normal heart sound present, S2 normal heart sound present, No gallops present (Cardio), No clicks present (Cardio), No murmurs present (Cardio) and No rub (Cardio) RATE: r egular rate RHYTHM: regular rhythm HEART SOUNDS: S1 normal heart sound present and S2 normal heart sound present PERIPHERAL PULSES: radial pulses present Extremity: COMMON NORMALS: no pedal edema Neuro: COMMON NORMALS: patient oriented x3 and moves all extremities S ENSORIUM/ORIENTATION: Yes oriented to person, Yes oriented to place and Yes oriented to time Data 12/23/24 03:17 12/23/24 03:17 A&P Assessment and plan (1) SVT (supraventricular tachycardia): (2) Chronic anticoagulation: (3) Essential hypertension: Plan Continue long-acting diltiazem and metoprolol with dose adjustment of beta- zarina today. Continue to monitor for arrhythmias. PDMP PDMP Reviewed: Not Reviewed Attestations 2 Medical Necessity Statement*: Per hospitalist Coding Level of Care Code Acute Code for [facility] Fwd Diagnoses SVT (supraventricular tachycardia) I47.10 Chronic anticoagulation Z79.01 Essential hypertension I10
--- NOTE | 2024-12-23 11:32 | P.PN_ITS ---
Subjective 2 Subjective: She could not tolerate much breakfast today, she had a few bites of cream of wheat, but then found a fly in it, however, tried to have some pudding, and then had to spit it up. Has had nausea, dry heaves and some vomiting. Still having some abdominal pain. Vitals/I&O/Wt Last Vital Signs Temp 99.5 F 12/23/24 08:00 Pulse 81 12/23/24 10:00 Resp 20 H 12/23/24 10:00 BP 129/81 12/23/24 10:00 Pulse Ox 93 12/23/24 10:00 O2 Del Method Nasal Cannula 12/23/24 10:00 O2 Flow Rate 2 12/23/24 10:00 12/22/24 12/23/24 12/23/24 22:59 06:59 14:59 Intake Total 50 / 1750 530 / 2280 200 / 200 Output Total 200 / 450 200 / 650 Balance -150 / 1300 330 / 1630 200 / 200 Weight last 48 hrs Weight 120.5 kg Weight 120.5 kg Physical Exam 2 Narrative: Sitting up in chair. Const: COMMON NORMALS: patient oriented x3 and alert GENERAL APPEARANCE: c ooperative ORIENTATION/CONSCIOUSNESS: Yes awake HENMT: COMMON NORMALS: oropharynx normal Neck/C-Spine: COMMON NORMALS: no JVD Resp: COMMON NORMALS: normal respiratory effort and clear to auscultation bilaterally AUSCULTATION: clear to auscultation bilaterally Cardio: COMMON NORMALS: no JVD, regular rhythm, S1 normal heart sound present, S2 normal heart sound present and No murmurs present (Cardio) RATE: t achycardic RHYTHM: regular rhythm HEART SOUNDS: S1 normal heart sound present and S2 normal heart sound present GI: COMMON NORMALS: Soft to palpation PALPATION: Yes Soft to palpation and Yes Tenderness to palpation present (GI) Extremity: COMMON NORMALS: no joint enlargement GENERAL: Yes edema (Trace) Neuro: COMMON NORMALS: patient oriented x3 and moves all extremities S ENSORIUM/ORIENTATION: Yes alert Skin: COMMON NORMALS: no rashes or lesions noted GENERAL SKIN EXAM: no rashes or lesions noted Data 12/23/24 03:17 12/23/24 03:17 A&P Assessment and plan (1) Pancreatitis: Improvement has slowed somewhat, further improvement in leukocytosis on review of CBC, however, poor oral intake, additionally dry heaving, nausea today. Some vomiting. Continue Zofran as needed. Add Reglan. Holding off on advancement of diet for now, agree with surgery continue full liquid today, consider soft diet tomorrow. If improving and able to advance, possibly could discharge tomorrow. She does state that she may not have a caregiver to receive her tomorrow. Discussed with skilled nursing case manager, will follow-up with her. She is considering another option who may help her get settled at home upon return. Reviewed PT assessment, with recommended continued home exercise. Repeat CBC, chemistry. Reviewed intake and output, chemistry. Reviewed surgery note. Discussed with nursing, skilled nursing case manager. 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 Reviewed chemistry, T. bili further down to 1.2. Alk phos was down to 128. Upon further evaluation, general surgery was comfortable with her admission here with further consideration of early cholecystectomy versus delayed cholecystectomy with follow-up after recovery from pancreatitis. Abdominal pain overall has improved. Complicated by SVT, so far without recurrence. Surgery further reevaluated with regards to consideration of cholecystectomy today, with recurrent indicators of cholecystitis, mild pericholecystic edema on imaging, improving biliary parameters, issues with tachyarrhythmia, planning and status tube pursue delayed cholecystectomy after resolution of of pancreatitis. DC IVF. Continue acetaminophen as needed for pain. IV morphine as needed for severe breakthrough. (2) SVT (supraventricular tachycardia): Give additional potassium replacement, unreviewed 3.5. Requesting K rider. Reviewed cardiology note. Reviewed cardiology note, discussed w supervisor elementary education, appreciate consultation. Agree with addition of metoprolol which they may further adjust today, and continuing Cardizem. Monitor for risk of hypotension with combination of Cardizem and metoprolol. Continuous telemetry monitoring. (3) Cholecystitis: Reviewed surgery note. Cont Zosyn for now. Full liquids for now, possible advancement to soft tomorrow and possible discharge. Discussed with surgery and with her on further surgery reevaluation, will be planning for delayed outpatient cholecystectomy after improvement from acute pancreatitis. Trial of advancement of diet Reviewed MRCP, cholelithiasis with mild pericholecystic edema. Mild pericholecystic changes on CT reassessment. As above. (4) UTI (urinary tract infection): Reviewed urine culture, positive for E. coli, resistant to ampicillin. Continue treatment with Zosyn. Plan Atrial fibrillation with RVR: With surgery deferred at this time, may be able to resume anticoagulation, possibly with Lovenox for now. She usually takes Cardizem which has been. Monitor on telemetry. MARYCARMEN: Does not wear CPAP Hypothyroidism: Levothyroxine DM2: Currently NPO. Hypoglycemia protocol. COPD: Not in exacerbation, DuoNebs as needed. Budesonide. Osteoarthritis RA PDMP PDMP Reviewed: Not Reviewed Attestations 2 Medical Necessity Statement*: Admission over 2 midnights needed for assessment management of acute pancreatitis, cholecystitis, SVT, UTI. and High MDM includes amount and/or complexity of data reviewed/ordered [ previous or external records, resulted lab(s)/test(s), ordered lab(s)/test(s) and other healthcare professional discussion] and described risk of complication, morbidity or mortality of management as documented Diagnoses Pancreatitis K85.90 SVT (supraventricular tachycardia) I47.10 Cholecystitis K81.9 UTI (urinary tract infection) N39.0
[2024-12-23 11:39] LABS: Glucose Point of Care 131 mg/dL (70-110)
[2024-12-23 12:43] LABS: Glucose Point of Care 118 mg/dL (70-110)
--- NOTE | 2024-12-23 15:41 | PC.NURSE ---
Report given to Michelle, KIESHA
--- NOTE | 2024-12-23 16:01 | PC.NURSE ---
Transferred to room 277-1 via wheelchair.
[2024-12-23] MEDS: acetaminophen 325 mg Tablet 650 MG PO (16:50)
[2024-12-23] MEDS: METOCLOPRAMIDE HCL 10 MG/10 ML UDC 5 MG PO ×2 (16:50→20:34)
[2024-12-23 16:55] LABS: Glucose Point of Care 130 mg/dL (70-110)
[2024-12-23] MEDS: lidocaine 1% 5 ML in potassium chloride premix 100 ML 52.5 ML IV (19:00)
[2024-12-23 19:07] LABS: C.Diff PCR (Lab) POSITIVE (Negative)
[2024-12-23] MEDS: vancomycin 125 mg Capsule PO (20:34)
[2024-12-23 20:50] LABS: Glucose Point of Care 119 mg/dL (70-110)
[2024-12-24] VITALS (11 sets, daily range): BP systolic 121–146; BP diastolic 82–90; PULSE 84–96; RESP 16–20; TEMP 36.9–37.6; O2SAT 90–93
[2024-12-24] MEDS: ondansetron 2 mg/ML SDV 2 mL 4 MG IVP (03:42)
[2024-12-24 03:58] LABS: Basophils % 0.3 %; Eosinophils # 0.1 10^3/uL (0.0-0.8); Eosinophils % 0.5 %; Hematocrit 30.7 % (36-47); Lymphocytes # 1.4 10^3/uL (0.8-4.8); Mean Corpuscular HGB Conc 32.6 g/dL (30-55); Mean Corpuscular Hemoglobin 29.2 pg (27-33); Mean Corpuscular Volume 89.8 fl (85-98); Mean Platelet Volume 11.1 fL (7.4-10.4); Monocytes % 6.5 %; Neutrophils # 12.76 10^3/uL (1.8-7.7); Neutrophils % 82.4 %; Nucleated Red Blood Cells % 0 %; Platelet Count 206 10^3/cmm (157-399); Red Blood Count 3.42 10^6/uL (3.85-5.65); Red Cell Distribution Width 14.1 % (12.1-15.1); White Blood Count 15.47 10^3/uL (3.29-11.43)
[2024-12-24 04:16] LABS: Alanine Aminotransferase 70 U/L (0-33); Albumin Level 2.7 g/dL (3.5-5.2); Alkaline Phosphatase 132 U/L (35-105); Anion Gap 11.5 (5-19); Aspartate Amino Transferase 21 U/L (0-32); Blood Urea Nitrogen 10 mg/dL (8-23); Calcium 7.4 mg/dL (8.5-10.5); Carbon Dioxide 26 mmol/L (22-29); Chloride 101 mmol/L (98-107); Creatinine Clr Calc Pharmacy 89.2258; Glucose 117 mg/dL (65-115); Osmolality Calculated 280 mOsm/kg (285-295); Potassium 3.5 mmol/L (3.5-5.1); Sodium 135 mmol/L (136-145); Total Bilirubin 0.6 mg/dL (0.15-1.2); Total Protein 5.7 g/dL (6.6-8.7)
[2024-12-24] MEDS: levothyroxine 75 mcg Tablet PO (05:44)
[2024-12-24] MEDS: piperacillin-tazobactam 3.375 GM in sodium chloride 0.9% (plus) 50 ML IV ×3 (05:45→22:01)
[2024-12-24] MEDS: dilTIAZem ER (24HR) 300 mg Capsule PO (05:45)
[2024-12-24] MEDS: acetaminophen 325 mg Tablet 650 MG PO ×2 (05:48→16:28)
[2024-12-24] MEDS: METOCLOPRAMIDE HCL 10 MG/10 ML UDC 5 MG PO ×4 (06:01→20:31)
[2024-12-24 06:18] LABS: Glucose Point of Care 126 mg/dL (70-110)
--- NOTE | 2024-12-24 08:58 | P.PN_ITS ---
Subjective 2 Subjective: 69-year-old female who was admitted with moderate to severe acute pancreatitis likely from biliary origin. She was also noted to have a UTI and in the last 24 hours she has developed loose stools which are positive for C. difficile. From the general surgery standpoint her abdominal exam has significantly improved, patient has no longer abdominal pain according to her just feels some epigastric pressure from time to time. She is still nauseous but slowly improving. Vitals/I&O/Wt Last Vital Signs Temp 98.4 F 12/24/24 08:38 Pulse 93 12/24/24 08:38 Resp 18 12/24/24 08:38 BP 146/90 12/24/24 08:38 Pulse Ox 91 12/24/24 08:38 O2 Del Method Room Air 12/24/24 08:38 O2 Flow Rate 2 12/23/24 12:00 12/23/24 12/24/24 12/24/24 22:59 06:59 14:59 Intake Total 205 / 555 50 / 605 Balance 205 / 555 50 / 605 Physical Exam 2 GI: OTHER: Abdominal exam is benign the abdomen is soft nontender minimally distended, normal bowel sounds Data 12/24/24 03:28 12/24/24 03:28 A&P Assessment and plan (1) Vomiting: (2) Pancreatitis: (3) Severe acute pancreatitis: (4) C. difficile colitis: Plan 69-year-old female with moderate to severe acute pancreatitis likely from biliary origin. Patient is not a good candidate for early laparoscopic cholecystectomy due to the degree of inflammation in the abdomen caused by the pancreatitis. In addition to that patient has also been diagnosed of UTI and in the last 24 hours she has been noted to be C. difficile positive. Her white count has shown a slight trend up but this can be justified but her C. difficile, especially in the setting of no abdominal pain. Vital signs have remained otherwise stable. Plan from the general surgery standpoint will be to advance to a GI soft diet, if tolerated she can be discharged in that diet. She can follow-up in my clinic 2 weeks after discharge to talk about a possible elective cholecystectomy to prevent further episodes of pancreatitis. In the unlikely case of clinical worsening patient will require a cholecystostomy tube during this admission. PDMP PDMP Reviewed: Not Reviewed Attestations 2 Medical Necessity Statement*: per medical team Coding Level of Care Code Acute Code for [facility] Fwd Diagnoses Bilious vomiting with nausea R11.14 Vomiting type: bilious vomiting Nausea presence: with nausea Pancreatitis K85.90 Severe acute pancreatitis K85.90 C. difficile colitis A04.72
[2024-12-24 09:25] LABS: Clostridioides Difficile Toxin NEGATIVE (Negative)
[2024-12-24] MEDS: budesonide 0.5 mg/2 mL Neb 0.25 MG INHALATION (09:30)
[2024-12-24] MEDS: vancomycin 125 mg Capsule PO ×4 (09:51→20:32)
[2024-12-24] MEDS: metoprolol succinate ER (24 HR) 25 mg Tablet 37.5 MG PO (09:51)
[2024-12-24] MEDS: montelukast sodium 10 mg Tablet PO (09:51)
[2024-12-24 11:46] LABS: Glucose Point of Care 125 mg/dL (70-110)
[2024-12-24] MEDS: pantoprazole 40 mg SDV IVP (11:53)
[2024-12-24] MEDS: enoxaparin 40 mg/0.4 mL Syringe SUBCUT (11:53)
--- NOTE | 2024-12-24 12:53 | PM.PN ---
Subjective Subjective: seen this morning states she was nauseated cream of wheat yesterday she would like to try milk today not fully ready to advance diet Vitals/I&O/Wt Last Vital Signs Temp 98.6 F 12/24/24 12:04 Pulse 84 12/24/24 12:04 Resp 18 12/24/24 12:04 BP 121/82 12/24/24 12:04 Pulse Ox 93 12/24/24 12:04 O2 Del Method Room Air 12/24/24 12:04 O2 Flow Rate 2 12/24/24 09:57 12/23/24 12/24/24 12/24/24 22:59 06:59 14:59 Intake Total 205 / 555 50 / 605 650 / 650 Balance 205 / 555 50 / 605 650 / 650 Physical Exam Narrative: Sitting up in chair. Const: COMMON NORMALS: patient oriented x3 and alert GENERAL APPEARANCE: cooperative ORIENTATION/CONSCIOUSNESS: Yes awake HENMT: COMMON NORMALS: oropharynx normal Neck/C-Spine: COMMON NORMALS: no JVD Resp: COMMON NORMALS: normal respiratory effort and clear to auscultation bilaterally AUSCULTATION: clear to auscultation bilaterally Cardio: COMMON NORMALS: no JVD, regular rhythm, S1 normal heart sound present, S2 normal heart sound present and No murmurs present (Cardio) RATE: tachycardic RHYTHM: regular rhythm HEART SOUNDS: S1 normal heart sound present and S2 normal heart sound present GI: COMMON NORMALS: Soft to palpation PALPATION: Yes Soft to palpation and Yes Tenderness to palpation present (GI) Extremity: COMMON NORMALS: no joint enlargement GENERAL: Yes edema (Trace) Neuro: COMMON NORMALS: patient oriented x3 and moves all extremities SENSORIUM/ORIENTATION: Yes alert Skin: COMMON NORMALS: no rashes or lesions noted GENERAL SKIN EXAM: no rashes or lesions noted Data 12/24/24 03:28 12/24/24 03:28 A&P Assessment and plan (1) Pancreatitis: Improvement has slowed somewhat, further improvement in leukocytosis on review of CBC, however, poor oral intake, additionally dry heaving, nausea today. Some vomiting. Continue Zofran as needed. Add Reglan. Holding off on advancement of diet for now, agree with surgery continue full liquid today, consider soft diet tomorrow. If improving and able to advance, possibly could discharge tomorrow. She does state that she may not have a caregiver to receive her tomorrow. Discussed with wrapper caser, will follow-up with her. She is considering another option who may help her get settled at home upon return. Reviewed PT assessment, with recommended continued home exercise. Repeat CBC, chemistry. Reviewed intake and output, chemistry. Reviewed surgery note. Discussed with nursing, wrapper caser. 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 Reviewed chemistry, T. bili further down to 1.2. Alk phos was down to 128. Upon further evaluation, general surgery was comfortable with her admission here with further consideration of early cholecystectomy versus delayed cholecystectomy with follow-up after recovery from pancreatitis. Abdominal pain overall has improved. Complicated by SVT, so far without recurrence. Surgery further reevaluated with regards to consideration of cholecystectomy today, with recurrent indicators of cholecystitis, mild pericholecystic edema on imaging, improving biliary parameters, issues with tachyarrhythmia, planning and status tube pursue delayed cholecystectomy after resolution of of pancreatitis. DC IVF. Continue acetaminophen as needed for pain. IV morphine as needed for severe breakthrough. (2) SVT (supraventricular tachycardia): Give additional potassium replacement, unreviewed 3.5. Requesting K nichelle. Reviewed cardiology note. Reviewed cardiology note, discussed w new accounts representative, appreciate consultation. Agree with addition of metoprolol which they may further adjust today, and continuing Cardizem. Monitor for risk of hypotension with combination of Cardizem and metoprolol. Continuous telemetry monitoring. (3) Cholecystitis: Reviewed surgery note. Cont Zosyn for now. Full liquids for now, possible advancement to soft tomorrow and possible discharge. Discussed with surgery and with her on further surgery reevaluation, will be planning for delayed outpatient cholecystectomy after improvement from acute pancreatitis. Trial of advancement of diet Reviewed MRCP, cholelithiasis with mild pericholecystic edema. Mild pericholecystic changes on CT reassessment. As above. (4) UTI (urinary tract infection): Reviewed urine culture, positive for E. coli, resistant to ampicillin. Continue treatment with Zosyn. Plan Atrial fibrillation with RVR: With surgery deferred at this time, may be able to resume anticoagulation, possibly with Lovenox for now. She usually takes Cardizem which has been. Monitor on telemetry. MARYCARMEN: Does not wear CPAP Hypothyroidism: Levothyroxine DM2: Currently NPO. Hypoglycemia protocol. COPD: Not in exacerbation, DuoNebs as needed. Budesonide. Osteoarthritis RA 12/24/2024 continue vanc + zosyn for empiric coverage continue levothyroxine, diltiazem, metoprolol succ continue full liquid, hold off on going to GI soft diet stool sample positive for c.diff continue oral vancomycin dc home once able to tolerate gi soft diet PDMP PDMP Reviewed: Not Reviewed Attestations Medical Necessity Statement*: Admission over 2 midnights needed for assessment management of acute pancreatitis, cholecystitis, SVT, UTI. Diagnoses Pancreatitis K85.90 SVT (supraventricular tachycardia) I47.10 Cholecystitis K81.9 UTI (urinary tract infection) N39.0
--- NOTE | 2024-12-24 14:05 | P.PN_ITS ---
Subjective 2 Subjective: She has no more episode of SVT overall doing fine patient is on precaution of C- diff Vitals/I&O/Wt Last Vital Signs Temp 98.6 F 12/24/24 12:04 Pulse 84 12/24/24 12:04 Resp 18 12/24/24 12:04 BP 121/82 12/24/24 12:04 Pulse Ox 93 12/24/24 12:04 O2 Del Method Room Air 12/24/24 12:04 O2 Flow Rate 2 12/24/24 09:57 12/23/24 12/24/24 12/24/24 22:59 06:59 14:59 Intake Total 205 / 555 50 / 605 650 / 650 Balance 205 / 555 50 / 605 650 / 650 Physical Exam 2 Const: OTHER: GENERAL: Patient is alert, awake and oriented x3. HEART: Regular S1 and S2. No murmur, rub or gallop. LUNGS: Clear to auscultate bilaterally. CENTRAL NERVOUS SYSTEM: Grossly nonfocal. EXTREMITIES: Lower extremities with out edema bilaterally. Data 12/24/24 03:28 12/24/24 03:28 A&P Assessment and plan (1) SVT (supraventricular tachycardia): Plan Continue cardizem and metoprolol PDMP PDMP Reviewed: Not Reviewed Attestations 2 Medical Necessity Statement*: As per medicine Coding Level of Care Code Acute Code for [facility] Diagnoses SVT (supraventricular tachycardia) I47.10
[2024-12-24 17:13] LABS: Glucose Point of Care 128 mg/dL (70-110)
[2024-12-24 20:37] LABS: Glucose Point of Care 126 mg/dL (70-110)
[2024-12-25] VITALS (9 sets, daily range): BP systolic 130–144; BP diastolic 73–93; PULSE 78–92; RESP 16–19; TEMP 36.7–37.4; O2SAT 90–94
[2024-12-25] MEDS: acetaminophen 325 mg Tablet 650 MG PO ×3 (01:06→18:38)
[2024-12-25] MEDS: ondansetron 2 mg/ML SDV 2 mL 4 MG IVP ×2 (01:06→13:44)
[2024-12-25 03:26] LABS: Basophils % 0.2 %; Eosinophils # 0.1 10^3/uL (0.0-0.8); Eosinophils % 0.6 %; Hematocrit 30.2 % (36-47); Lymphocytes # 1.2 10^3/uL (0.8-4.8); Lymphocytes % 6.4 %; Mean Corpuscular HGB Conc 32.8 g/dL (30-55); Mean Corpuscular Hemoglobin 29.4 pg (27-33); Mean Corpuscular Volume 89.6 fl (85-98); Mean Platelet Volume 11.3 fL (7.4-10.4); Monocytes # 1.3 10^3/uL (0.2-0.9); Neutrophils # 15.65 10^3/uL (1.8-7.7); Neutrophils % 82.4 %; Nucleated Red Blood Cells % 0 %; Platelet Count 232 10^3/cmm (157-399); Red Blood Count 3.37 10^6/uL (3.85-5.65); Red Cell Distribution Width 14.1 % (12.1-15.1)
[2024-12-25 03:46] LABS: Anion Gap 15.5 (5-19); Blood Urea Nitrogen 10 mg/dL (8-23); Calcium 7.6 mg/dL (8.5-10.5); Carbon Dioxide 23 mmol/L (22-29); Chloride 101 mmol/L (98-107); Creatinine Clr Calc Pharmacy 89.2258; Glomerular Filtration Rate 71.1 mL/min (90-130); Glucose 132 mg/dL (65-115); Magnesium 1.7 mg/dL (1.7-2.3); Osmolality Calculated 283 mOsm/kg (285-295); Potassium 3.5 mmol/L (3.5-5.1); Sodium 136 mmol/L (136-145)
[2024-12-25] MEDS: levothyroxine 75 mcg Tablet PO (05:36)
[2024-12-25] MEDS: piperacillin-tazobactam 3.375 GM in sodium chloride 0.9% (plus) 50 ML IV ×3 (05:36→22:13)
[2024-12-25] MEDS: dilTIAZem ER (24HR) 300 mg Capsule PO (05:36)
[2024-12-25] MEDS: METOCLOPRAMIDE HCL 10 MG/10 ML UDC 5 MG PO ×4 (06:01→20:29)
[2024-12-25 06:32] LABS: Glucose Point of Care 135 mg/dL (70-110)
[2024-12-25] MEDS: montelukast sodium 10 mg Tablet PO (07:54)
[2024-12-25] MEDS: metoprolol succinate ER (24 HR) 25 mg Tablet 37.5 MG PO (07:54)
[2024-12-25] MEDS: vancomycin 125 mg Capsule PO ×4 (07:54→20:29)
--- NOTE | 2024-12-25 08:43 | P.PN_ITS ---
Subjective 2 Subjective: Clinically has been doing well overnight. She is still having diarrhea but it has improved. Has no active abdominal pain during my interview but according to the patient whenever she gets pain now is in the lower abdomen. I have inquired regarding the characteristics of pain patient states that is completely different to the pain that she had on admission and she no longer has any abdominal pain in the upper abdomen or right upper quadrant. Has been able to tolerate the full liquid diet although she endorses having some nausea, no vomiting, has been passing gas. Vitals/I&O/Wt Last Vital Signs Temp 98.6 F 12/25/24 07:27 Pulse 87 12/25/24 07:27 Resp 17 12/25/24 07:27 BP 131/82 12/25/24 07:27 Pulse Ox 94 12/25/24 07:27 O2 Del Method Room Air 12/25/24 07:27 O2 Flow Rate 2 12/24/24 20:20 12/24/24 12/25/24 12/25/24 22:59 06:59 14:59 Intake Total 290.625 / 940.625 289.375 / 1230.000 240 / 240 Balance 290.625 / 940.625 289.375 / 1230.000 240 / 240 Physical Exam 2 GI: OTHER: Abdominal examination is complete benign abdomen soft nontender nondistended. Data 12/25/24 02:43 12/25/24 02:43 A&P Assessment and plan (1) Vomiting: (2) Pancreatitis: (3) Severe acute pancreatitis: Plan This is a 69-year-old female who presented with moderate to severe acute pancreatitis likely of biliary origin. She received nonoperative management with the expectation of having a cholecystectomy as an elective procedure in 4 to 6 weeks to prevent further episodes of pancreatitis. Initial imaging showed no evidence of acute cholecystitis but rather just mild pericholecystic edema likely from the moderate to severe acute pancreatitis. Laboratory workup improved as well as LFTs. In the last 24 to 48 hours patient white count have trended up and she developed diarrhea. Her stool is positive for C. difficile, although the toxin is negative she has clinical symptoms of C. difficile infection including diarrhea and lower abdominal pain. She has been receiving treatment as guided by medical team. From the general surgery standpoint she can have a GI soft diet and she will be transitioned home on this diet. No surgical intervention is anticipated during this hospital stay. If there is any clinical worsening or concerns for active cholecystitis during this admission patient will require a cholecystostomy tube, although at this point this is unlikely. General surgery will continue to follow and we appreciate all other management per primary team. PDMP PDMP Reviewed: Not Reviewed Attestations 2 Medical Necessity Statement*: Per medical team Coding Level of Care Code Acute Code for [facility] Diagnoses Bilious vomiting with nausea R11.14 Vomiting type: bilious vomiting Nausea presence: with nausea Pancreatitis K85.90 Severe acute pancreatitis K85.90
[2024-12-25] MEDS: budesonide 0.5 mg/2 mL Neb 0.25 MG INHALATION ×2 (09:04→21:09)
[2024-12-25] MEDS: apixaban 5 mg Tablet PO ×2 (09:42→18:37)
[2024-12-25] MEDS: pantoprazole 40 mg SDV IVP (10:59)
[2024-12-25 11:39] LABS: Glucose Point of Care 126 mg/dL (70-110)
--- NOTE | 2024-12-25 13:23 | PM.PN ---
Subjective Subjective: seen today says she was able to tolerate cream of wheat wbc 19K today 3 BM watery since morning Vitals/I&O/Wt Last Vital Signs Temp 98.8 F 12/25/24 11:39 Pulse 92 12/25/24 11:39 Resp 16 12/25/24 11:39 BP 142/84 12/25/24 11:39 Pulse Ox 91 12/25/24 11:39 O2 Del Method Room Air 12/25/24 11:39 O2 Flow Rate 2 12/24/24 20:20 12/24/24 12/25/24 12/25/24 22:59 06:59 14:59 Intake Total 290.625 / 940.625 289.375 / 1230.000 290 / 290 Balance 290.625 / 940.625 289.375 / 1230.000 290 / 290 Physical Exam Narrative: Sitting up in chair. Const: COMMON NORMALS: patient oriented x3 and alert GENERAL APPEARANCE: cooperative ORIENTATION/CONSCIOUSNESS: Yes awake HENMT: COMMON NORMALS: oropharynx normal Neck/C-Spine: COMMON NORMALS: no JVD Resp: COMMON NORMALS: normal respiratory effort and clear to auscultation bilaterally AUSCULTATION: clear to auscultation bilaterally Cardio: COMMON NORMALS: no JVD, regular rhythm, S1 normal heart sound present, S2 normal heart sound present and No murmurs present (Cardio) RATE: tachycardic RHYTHM: regular rhythm HEART SOUNDS: S1 normal heart sound present and S2 normal heart sound present GI: COMMON NORMALS: Soft to palpation PALPATION: Yes Soft to palpation, No Tenderness to palpation present (GI) and Yes Other GI palpation findings present (improved abdominal exam) Extremity: COMMON NORMALS: no joint enlargement GENERAL: Yes edema (Trace) Neuro: COMMON NORMALS: patient oriented x3 and moves all extremities SENSORIUM/ORIENTATION: Yes alert Skin: COMMON NORMALS: no rashes or lesions noted GENERAL SKIN EXAM: no rashes or lesions noted Data 12/25/24 02:43 12/25/24 02:43 A&P Assessment and plan (1) Pancreatitis: Improvement has slowed somewhat, further improvement in leukocytosis on review of CBC, however, poor oral intake, additionally dry heaving, nausea today. Some vomiting. Continue Zofran as needed. Add Reglan. Holding off on advancement of diet for now, agree with surgery continue full liquid today, consider soft diet tomorrow. If improving and able to advance, possibly could discharge tomorrow. She does state that she may not have a caregiver to receive her tomorrow. Discussed with case finishing machine adjuster, will follow-up with her. She is considering another option who may help her get settled at home upon return. Reviewed PT assessment, with recommended continued home exercise. Repeat CBC, chemistry. Reviewed intake and output, chemistry. Reviewed surgery note. Discussed with nursing, case finishing machine adjuster. 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 Reviewed chemistry, T. bili further down to 1.2. Alk phos was down to 128. Upon further evaluation, general surgery was comfortable with her admission here with further consideration of early cholecystectomy versus delayed cholecystectomy with follow-up after recovery from pancreatitis. Abdominal pain overall has improved. Complicated by SVT, so far without recurrence. Surgery further reevaluated with regards to consideration of cholecystectomy today, with recurrent indicators of cholecystitis, mild pericholecystic edema on imaging, improving biliary parameters, issues with tachyarrhythmia, planning and status tube pursue delayed cholecystectomy after resolution of of pancreatitis. DC IVF. Continue acetaminophen as needed for pain. IV morphine as needed for severe breakthrough. (2) SVT (supraventricular tachycardia): Give additional potassium replacement, unreviewed 3.5. Requesting Pedro steward. Reviewed cardiology note. Reviewed cardiology note, discussed w embedded software programmer, appreciate consultation. Agree with addition of metoprolol which they may further adjust today, and continuing Cardizem. Monitor for risk of hypotension with combination of Cardizem and metoprolol. Continuous telemetry monitoring. (3) Cholecystitis: Reviewed surgery note. Cont Zosyn for now. Full liquids for now, possible advancement to soft tomorrow and possible discharge. Discussed with surgery and with her on further surgery reevaluation, will be planning for delayed outpatient cholecystectomy after improvement from acute pancreatitis. Trial of advancement of diet Reviewed MRCP, cholelithiasis with mild pericholecystic edema. Mild pericholecystic changes on CT reassessment. As above. (4) UTI (urinary tract infection): Reviewed urine culture, positive for E. coli, resistant to ampicillin. Continue treatment with Zosyn. Plan Atrial fibrillation with RVR: With surgery deferred at this time, may be able to resume anticoagulation, possibly with Lovenox for now. She usually takes Cardizem which has been. Monitor on telemetry. MARYCARMEN: Does not wear CPAP Hypothyroidism: Levothyroxine DM2: Currently NPO. Hypoglycemia protocol. COPD: Not in exacerbation, DuoNebs as needed. Budesonide. Osteoarthritis RA 12/24/2024 continue vanc + zosyn for empiric coverage continue levothyroxine, diltiazem, metoprolol succ continue full liquid, hold off on going to GI soft diet stool sample positive for c.diff continue oral vancomycin dc home once able to tolerate gi soft diet 12/25/2024 pt positive for c.diff continue oral vanc x 10 days wbc 19K stop zosyn at 7 days. last dose 12/26 cotninue to monitor electrolytes advance diet to gi soft gen surgery following possible dc home in 24-48 hours once pt able to tolerate gi soft diet diarrhea hasnt improved yet. PDMP PDMP Reviewed: Not Reviewed Attestations Medical Necessity Statement*: Admission over 2 midnights needed for assessment management of acute pancreatitis, cholecystitis, SVT, UTI. Diagnoses Pancreatitis K85.90 SVT (supraventricular tachycardia) I47.10 Cholecystitis K81.9 UTI (urinary tract infection) N39.0
[2024-12-25 16:47] LABS: Glucose Point of Care 129 mg/dL (70-110)
[2024-12-25 20:40] LABS: Glucose Point of Care 150 mg/dL (70-110)
[2024-12-26] VITALS (10 sets, daily range): BP systolic 131–149; BP diastolic 75–88; PULSE 79–99; RESP 15–18; TEMP 36.6–38.4; O2SAT 90–94
[2024-12-26] MEDS: acetaminophen 325 mg Tablet 650 MG PO ×2 (03:39→15:47)
[2024-12-26 04:08] LABS: Basophils # 0.1 10^3/uL (0.0-0.1); Basophils % 0.5 %; Eosinophils # 0.2 10^3/uL (0.0-0.8); Eosinophils % 0.8 %; Hematocrit 33.2 % (36-47); Lymphocytes # 1.5 10^3/uL (0.8-4.8); Lymphocytes % 7.5 %; Mean Corpuscular HGB Conc 30.4 g/dL (30-55); Mean Corpuscular Hemoglobin 29.3 pg (27-33); Mean Corpuscular Volume 96.2 fl (85-98); Mean Platelet Volume 10.5 fL (7.4-10.4); Monocytes # 1.4 10^3/uL (0.2-0.9); Monocytes % 6.9 %; Neutrophils # 15.64 10^3/uL (1.8-7.7); Neutrophils % 80.1 %; Nucleated Red Blood Cells % 0 %; Platelet Count 291 10^3/cmm (157-399); Red Blood Count 3.45 10^6/uL (3.85-5.65); Red Cell Distribution Width 14.3 % (12.1-15.1); White Blood Count 19.55 10^3/uL (3.29-11.43)
[2024-12-26 04:27] LABS: Magnesium 1.7 mg/dL (1.7-2.3)
[2024-12-26] MEDS: piperacillin-tazobactam 3.375 GM in sodium chloride 0.9% (plus) 50 ML IV ×2 (05:34→14:11)
[2024-12-26] MEDS: levothyroxine 75 mcg Tablet PO (05:34)
[2024-12-26] MEDS: dilTIAZem ER (24HR) 300 mg Capsule PO (05:34)
[2024-12-26] MEDS: METOCLOPRAMIDE HCL 10 MG/10 ML UDC 5 MG PO ×4 (06:00→21:35)
[2024-12-26 06:30] LABS: Glucose Point of Care 122 mg/dL (70-110)
--- NOTE | 2024-12-26 07:44 | PM.PN ---
Subjective Subjective: Clinically continues to improve, over the last 24 hours she has had less loose stools, this morning she did have a very large loose bowel movement. She has been able to tolerate a GI soft diet but she does not like the food choices she is given. Denies any abdominal pain, endorses occasional heartburn and lower back pain from being on the recliner. Vitals/I&O/Wt Last Vital Signs Temp 100.5 F H 12/26/24 04:00 Pulse 89 12/26/24 05:02 Resp 17 12/26/24 04:00 BP 149/88 12/26/24 04:00 Pulse Ox 91 12/26/24 04:00 O2 Del Method Room Air 12/26/24 04:00 O2 Flow Rate 2 12/24/24 20:20 12/25/24 12/26/24 12/26/24 22:59 06:59 14:59 Intake Total 400 / 810 180 / 990 Balance 400 / 810 180 / 990 Physical Exam GI: OTHER: Abdominal examination is completely benign the abdomen is soft is nontender nondistended. Data 12/26/24 03:29 12/25/24 02:43 A&P Assessment and plan (1) Pancreatitis: (2) C. difficile colitis: Plan This is a 69-year-old female who is known to my service for moderate to severe acute pancreatitis likely from biliary origin. Pancreatitis has been medically manage and from the surgical standpoint she will be plan for a possible elective cholecystectomy in 4 to 6 weeks after discharge. Clinically she has been steadily improving but her clinical course was complicated with significant diarrhea and she tested positive for C. difficile. Over the last 48 hours she is still seeing clinical improvement but her white count has trended up to 19.5 and she had a temperature of 100.5. Overall she is feeling well, from the surgical standpoint no additional interventions is recommended at this time but she may need additional workup guided by medical team before being able to transition to the outpatient setting. As previously documented in the unlikely case of clinical worsening or signs concerning for acute cholecystitis during this hospital admission patient will require decompression with cholecystostomy tube due to the recent episode of moderate to severe acute pancreatitis. PDMP PDMP Reviewed: Not Reviewed Attestations Medical Necessity Statement*: Per medical team Coding Level of Care Code Acute Code for [facility]wd Diagnoses Pancreatitis K85.90 C. difficile colitis A04.72
[2024-12-26] MEDS: vancomycin 125 mg Capsule PO (08:17)
[2024-12-26] MEDS: metoprolol succinate ER (24 HR) 25 mg Tablet 37.5 MG PO (08:17)
[2024-12-26] MEDS: montelukast sodium 10 mg Tablet PO (08:18)
[2024-12-26] MEDS: apixaban 5 mg Tablet PO ×2 (08:18→17:08)
[2024-12-26] MEDS: ondansetron 2 mg/ML SDV 2 mL 4 MG IVP (09:22)
[2024-12-26 10:13] LABS: Glucose Point of Care 132 mg/dL (70-110)
[2024-12-26] MEDS: budesonide 0.5 mg/2 mL Neb 0.25 MG INHALATION ×2 (10:16→19:52)
--- NOTE | 2024-12-26 11:02 | PM.CONSULT ---
Providers/Reason For Consult Consulting Physician/Specialty*: Stacy Enciso MD/ Infectious Disease Reason for Consult*: persisting fever and leukocytosis Requesting Physician: Ada Bond MD Attending Physician: Ada Bond MD Primary Care Provider: Sudheer Ivy History of Present Illness History of Present Illness Priti Hurtado is a 69 year old female who presented to the emergency room on 12/19/2024 with chief complaints of diffuse abdominal pain. She was found to have significantly elevated lipase, elevated LFTs diagnosis of gallstone pancreatitis. An MRCP was performed which showed marked inflammation involving the body and tail of the pancreas with fluid noted throughout the left upper quadrant. Gallbladder and biliary ducts showed multiple gallstones and sludge within the gallbladder with pericholecystic edema. LFT upon admission showed a T. bili of 2.5, which has since improved to 0.6 on December 24, 2024. AST of 671 upon admission improved to 21 on December 24. ALT of 417, improved to 70 currently. Alkaline phosphatase of 138 upon admission, currently at 132. Triglyceride level was 56. Alcohol level not available. Patient was initially planned to be transferred to [facility] with the hospitalist accepting, however it is my understanding that eventually this transfer was deferred as there were no beds and patient was clinically improving. Patient was admitted to the hospitalist service here. General surgery was consulted to evaluate for cholecystectomy in view of gallstone pancreatitis. It was opined that in patients with moderate to severe acute pancreatitis that undergo an early cholecystectomy the risks of complications including biliary leak, conversion to open procedure, morbidity or mortality is increased. Was recommended to wait for 4 to 6 weeks to undergo an elective cholecystectomy down the line. Hospital course has been complicated by a persistent leukocytosis, intermittent fever and SVT for which cardiology has been following the patient. She is currently cleared tolerating a soft diet. She states her abdominal pain is improved over admission but continues to have intermittent discomfort. Additionally states that she has been having issues with on and off diarrhea since August 2024 and which appeared to have become more prominent just prior to . States that diarrhea was foul-smelling, watery, orange to dark brown-colored mostly, self resolving. This was thought to be related to symptomatic cholelithiasis and patient was planned for an outpatient ultrasound on 12/22/2024, however she needed to present to the emergency room for worsening symptoms prior to this day. C. difficile PCR returned positive after she developed 3 episodes of watery bowel movements. She has been on treatment with piperacillin/tazobactam between 12/19 to 12/26/2024. There are no blood cultures Obtained during the admission course. Urine culture from December 19, 2024 had shown E. coli ; the patient denies any urinary symptoms currently or at admission. reports h/o leaky valves LV systolic function is normal with EF of 60-65%.Grade 1 diastolic dysfunction.Trace mitral regurgitation.Insufficient TR jet. Tmax is 101.1F. Review of Systems General: Reports: 10 or more systems reviewed and unremarkable except in HPI and below Const: Denies: fever(s), chills or body aches Eyes: Denies: change in vision, blurry vision or photophobia ENMT: Reports: hoarseness; Denies: throat pain, enlarged tonsils, odynophagia or nasal congestion Card: Denies: chest pain, palpitations, irregular heart rhythm, edema, swelling of feet/ankles, lightheadedness, pre-syncope, dyspnea on exertion or orthopnea Resp: Denies: dyspnea, productive cough, non-productive cough, wheezing, stridor, pain on inspiration, change in phlegm color, hemoptysis or chest congestion GI: Denies: abdominal pain, nausea, vomiting, hematemesis, coffee ground emesis, dysphagia, heartburn, diarrhea, constipation, GI cramping, change in stool character, hematochezia or melena : Denies: flank pain, difficulty voiding, dysuria, urinary frequency, urinary urgency, urinary hesitancy or hematuria Musc: Denies: neck pain, back pain, extremity pain, joint swelling, joint warmth or deformity Neuro: Denies: headache(s), numbness in extremities, weakness in extremities, sensory changes, difficulty walking, frequent falls, dizziness, vertigo, behavioral changes, Slurred speech present or seizure-like activity Psych: Denies: anxiety, depression, suicidal ideation or homicidal ideation Endo: Denies: polyuria, polydipsia, tired all the time, cold intolerance or hot flashes Joel/Lymph: Denies: easy bruising or easy bleeding Medications/Allergies Home Medications ?Medication ?Instructions ?Recorded ?Confirmed ?Last Taken ?Type blood sugar diagnostic (UniregistryTouch #100 ea 01/27/24 12/19/24 Unknown Rx Verio test strips) blood-glucose meter (OneTouch #1 ea 01/27/24 12/19/24 Unknown Rx Verio Flex Meter) lancets #100 ea 01/27/24 12/19/24 Unknown Rx albuterol sulfate 90 mcg/actuation 2 puff inhalation QID PRN 09/26/24 12/19/24 Unknown Rx aerosol inhaler (Ventolin HFA) shortness of breath or wheezing #6.7 grams apixaban 5 mg tablet (Eliquis) 5 mg PO BID #60 tabs 09/26/24 12/19/24 12/18/24 Rx atorvastatin 20 mg tablet 20 mg PO BEDTIME #30 tabs 09/26/24 12/20/24 12/18/24 Rx mometasone-formoterol HFA 100 2 puff inhalation BID #13 grams 09/26/24 12/19/24 12/18/24 Rx mcg-5 mcg/actuation aerosol inhaler (Dulera) allopurinol 300 mg tablet 300 mg PO QPM 12/20/24 12/20/24 12/18/24 History diltiazem HCl 300 mg capsule,24 300 mg PO QAM 12/20/24 12/20/24 12/18/24 History hr,extended release levothyroxine 75 mcg capsule 75 mcg PO QAM 12/20/24 12/20/24 12/18/24 History lisinopril 20 mg tablet 20 mg PO QAM 12/20/24 12/20/24 12/19/24 History metformin 500 mg tablet 500 mg PO .NOON 12/20/24 12/20/24 12/19/24 History montelukast 10 mg tablet 10 mg PO .NOON 12/20/24 12/20/24 12/18/24 History (Singulair) multivitamin 1 tab PO QAM 12/20/24 12/20/24 12/19/24 History Allergies Allergy/AdvReac Type Severity Reaction Status Date / Time No Known Allergies Allergy Verified 12/19/24 09:32 Current Medications Generic Name Dose Route Start Last Admin Trade Name Freq PRN Reason Stop Dose Admin Acetaminophen 650 mg 12/20/24 11:30 12/26/24 03:39 Acetaminophen 325 Mg Tablet PO 650 mg Q6H PRN Administration Mild/Mod Pain Or Temp >/= 101 Apixaban 5 mg 12/25/24 09:00 12/26/24 08:18 Apixaban 5 Mg Tablet PO 5 mg BID TONY Administration Budesonide 0.25 mg 12/20/24 20:00 12/26/24 10:16 Budesonide 0.5 Mg/2 Ml Neb INHALATION 0.25 mg BID.RESPIRATORY TONY Administration Diltiazem HCl 300 mg 12/21/24 06:00 12/26/24 05:34 Diltiazem Er (24hr) 300 Mg Capsule PO 300 mg QAM TONY Administration Piperacillin Sod/Tazobactam 50 mls @ 12.5 mls/hr 12/20/24 14:00 12/26/24 10:31 Sod 3.375 gm/ Sodium Chloride IV Infused Q8H TONY Infusion Protocol Levothyroxine Sodium 75 mcg 12/21/24 06:00 12/26/24 05:34 Levothyroxine 75 Mcg Tablet PO 75 mcg QAM TONY Administration Metoclopramide HCl 5 mg 12/23/24 17:00 12/26/24 06:00 Metoclopramide Hcl 10 Mg/10 Ml Udc PO 5 mg AC&BEDTIME TONY Administration Metoprolol Succinate 37.5 mg 12/24/24 09:00 12/26/24 08:17 Metoprolol Succinate Er (24 Hr) 25 Mg Tablet PO 37.5 mg DAILY TONY Administration Montelukast Sodium 10 mg 12/21/24 09:00 12/26/24 08:18 Montelukast Sodium 10 Mg Tablet PO 10 mg DAILY TONY Administration Ondansetron HCl 4 mg 12/20/24 11:30 12/26/24 09:22 Ondansetron 2 Mg/Ml Sdv 2 Ml IVP 4 mg Q8H PRN Administration vomiting, or N/V if npo Pantoprazole Sodium 40 mg 12/20/24 11:30 12/25/24 10:59 Pantoprazole 40 Mg Sdv IVP 40 mg Q24H TONY Administration Vancomycin HCl 125 mg 12/23/24 21:00 12/26/24 08:17 Vancomycin 125 Mg Capsule PO 125 mg QID TONY Administration PFSH Acute PFSH: Medical History Enrolled in chronic care management MARYCARMEN (obstructive sleep apnea) hx of diagnosed marycarmen, not on cpap Hypothyroidism Chronic anticoagulation Chronic gout Hyperlipidemia Essential hypertension Type 2 diabetes mellitus COPD (chronic obstructive pulmonary disease) Atrial fibrillation Osteoarthritis Rheumatoid arthritis Surgical History Hx of goiter hx of goiter excision Hx of local excision of skin lesion left foot skin cancer removed Hx of tooth extraction Hx of hysterectomy, total had a plasma reaction when she had her hysterectomy. Was told to avoid future surgeries due to this reaction. 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 Vitals/I&O/Wt Last Vital Signs Temp 98.8 F 12/26/24 08:00 Pulse 79 12/26/24 10:18 Resp 16 12/26/24 10:18 BP 132/81 12/26/24 08:00 Pulse Ox 92 12/26/24 10:18 O2 Del Method Room Air 12/26/24 10:18 O2 Flow Rate 2 12/24/24 20:20 12/25/24 12/26/24 12/26/24 22:59 06:59 14:59 Intake Total 400 / 810 180 / 990 290 / 290 Balance 400 / 810 180 / 990 290 / 290 Physical Exam Narrative: General: No acute distress, AO x3 HEENT: PERRLA, pupils bilaterally equal and reactive, pallors not present Chest: Normal vesicular breath sounds, no added sounds, equal good air entry bilaterally CVS: S1-S2 regular, no murmurs, no tachycardia, no gallops, no rubs Abdomen: Soft, nontender, no organomegaly, bowel sounds present Neuro: No focal deficits, no facial deformity, AO x3, power 5/5 in all limbs Data 12/26/24 03:29 12/26/24 13:35 Other data: Radiology Impressions Gallbladder Ultrasound 12/19/24 10:58 IMPRESSION: 1. Cholelithiasis without acute cholecystitis. Additional comet tail artifact from adenomyomatosis. 2. Common bile duct is measuring top normal size. 3. Moderate hepatomegaly with hepatic steatosis. Cholangiopancreatography MRI 12/19/24 13:23 IMPRESSION: 1. Findings consistent with acute pancreatitis 2. Cholelithiasis with mild pericholecystic edema 3. Normal bile ducts Abdomen/Pelvis CT 12/21/24 05:37 IMPRESSION: 1. Minimally abnormal gallbladder. 2. Pancreatitis with retroperitoneal effusion and mild intra-abdominal ascites. COMMENTS: Consistent with the [place] [employer]'s Incidental Findings Committee white paper (J Am John Radiol 2018): Any incidental renal lesion less than 1 cm or classified as too small to characterize, or any incidental cystic renal lesion characterized as simple-appearing, is likely benign. No follow-up imaging is recommended for these lesions per consensus recommendations based on imaging criteria. Laboratory Results WBC 19.55 10^3/uL (3.29-11.43) H 12/26/24 03:29 RBC 3.45 10^6/uL (3.85-5.65) L 12/26/24 03:29 Hgb 10.10 g/dL (11.27-16.99) L 12/26/24 03:29 Hct 33.2 % (36-47) L 12/26/24 03:29 MCV 96.2 fl (85-98) 12/26/24 03:29 MCH 29.3 pg (27-33) 12/26/24 03:29 MCHC 30.4 g/dL (30-55) D 12/26/24 03:29 RDW 14.3 % (12.1-15.1) 12/26/24 03:29 Plt Count 291 10^3/cmm (157-399) 12/26/24 03:29 MPV 10.5 fL (7.4-10.4) H 12/26/24 03:29 Neut % (Auto) 80.1 % 12/26/24 03:29 Lymph % (Auto) 7.5 % 12/26/24 03:29 [place] % (Auto) 6.9 % 12/26/24 03:29 Eos % (Auto) 0.8 % 12/26/24 03:29 Baso % (Auto) 0.5 % 12/26/24 03:29 Neut # (Auto) 15.64 10^3/uL (1.8-7.7) H 12/26/24 03:29 Lymph # (Auto) 1.5 10^3/uL (0.8-4.8) 12/26/24 03:29 [place] # (Auto) 1.4 10^3/uL (0.2-0.9) H 12/26/24 03:29 Eos # (Auto) 0.2 10^3/uL (0.0-0.8) 12/26/24 03:29 Baso # (Auto) 0.1 10^3/uL (0.0-0.1) 12/26/24 03: Nucleated RBC % (auto) 0 % 12/26/24 03: Nucleated RBCs # 0.0 /100WBC 12/26/24 03:29 Sodium 136 mmol/L (136-145) 12/25/24 02:43 Potassium 3.5 mmol/L (3.5-5.1) 12/25/24 02:43 Chloride 101 mmol/L (98-107) 12/25/24 02:43 Carbon Dioxide 23 mmol/L (22-29) 12/25/24 02:43 Anion Gap 15.5 (5-19) 12/25/24 02:43 BUN 10 mg/dL (8-23) 12/25/24 02:43 Creatinine 0.8 mg/dL (0.5-0.9) 12/25/24 02:43 GFR Calculation 71.1 mL/min (90-130) L 12/25/24 02:43 Glucose 132 mg/dL (65-115) H 12/25/24 02:43 POC Glucose 132 mg/dL (70-110) H 12/26/24 10:08 Calculated Osmolality 283 mOsm/kg (285-295) L 12/25/24 02:43 Lactic Acid 1.2 mmol/L (0.5-2.2) 12/20/24 06:49 Calcium 7.6 mg/dL (8.5-10.5) L 12/25/24 02:43 Magnesium 1.7 mg/dL (1.7-2.3) 12/26/24 03:29 Total Bilirubin 0.6 mg/dL (0.15-1.2) 12/24/24 03:28 Direct Bilirubin 1.00 mg/dL (0.00-0.30) H 12/21/24 02:45 AST 21 U/L (0-32) 12/24/24 03:28 ALT 70 U/L (0-33) H 12/24/24 03:28 Alkaline Phosphatase 132 U/L (35-105) H 12/24/24 03:28 Total Protein 5.7 g/dL (6.6-8.7) L 12/24/24 03:28 Albumin 2.7 g/dL (3.5-5.2) L 12/24/24 03:28 Globulin 3.0 g/dL (1.3-4.6) 12/24/24 03:28 Triglycerides 56 mg/dL (0-150) 12/20/24 18:10 Cholesterol 127 mg/dL (0-200) 12/20/24 18:10 LDL Cholesterol, Calc 65 mg/dL (50-129) 12/20/24 18:10 HDL Cholesterol 51 mg/dL (60-100) L 12/20/24 18:10 LDL/HDL Ratio 1.27 RATIO (0.00-3.22) 12/20/24 18:10 Cholesterol/HDL Ratio 2.49 mg/dL (0.0-4.40) 12/20/24 18:10 Lipase 1964 U/L (13-60) H 12/21/24 02:45 Urine Color Dark yellow (Yellow) A 12/19/24 14:48 Urine Appearance Slightly cloudy (CLEAR) 12/19/24 14:48 Urine pH 5 (5-7) 12/19/24 14:48 Ur Specific [place] 1.010 (1.005-1.030) 12/19/24 14:48 Urine Protein 2+ (Negative) H 12/19/24 14:48 Urine Glucose (UA) Norm (Normal) 12/19/24 14:48 Urine Ketones Negative (Negative) 12/19/24 14:48 Urine Blood 2+ (Negative) H 12/19/24 14:48 Urine Nitrate Negative (Negative) 12/19/24 14:48 Urine Bilirubin 1+ (Negative) H 12/19/24 14:48 Urine Urobilinogen 4 mg/dL (Negative) H 12/19/24 14:48 Ur Leukocyte Esterase 2+ (Negative) H 12/19/24 14:48 Urine RBC 3-5 /hpf (0-2) 12/19/24 14:48 Urine WBC 51-100 /hpf (0-5) H 12/19/24 14:48 Ur Squamous Epith Cells 6-10 /hpf (0-5) 12/19/24 14:48 Amorphous Sediment Not Reportable 12/19/24 14:48 Urine Bacteria 4+ /hpf (NONE) H 12/19/24 14:48 Hyaline Casts 26.85 /lpf 12/19/24 14:48 C. difficile (PCR) Positive (Negative) H 12/23/24 18:00 C.difficile Tox Confrm Negative (Negative) 12/23/24 18:00 Blood Type B Positive 12/20/24 18:10 Rho(D) Type Rh positive 12/20/24 18:10 Antibody Screen Negative 12/20/24 18:10 A&P Assessment and plan (1) C. difficile diarrhea: (2) Pancreatitis: (3) Persistent fever: Plan continue zosyn for now Add iv vancomycin for enterococcal coverage given temp spike to 101.1F today Change oral vanc to oral dificid due to lower recurrence risk Obtain blood cultures now Resp panel to assess for acute viral illness as potentially contributing to fever CT Chest abdomen and pelvis w/contrast to assess for pancreatic nerosis, abscess, reactive effusions. Additionally CT will assess for C diff colitis Unlikely UTI to be cause of persisting symptoms as patient on adequate coverage and lack of urinary symptoms , probably E.coli + cx to be asymptomatic bacteriuria will follow with results of above testing PDMP PDMP Reviewed: Not Reviewed Consult Attestations Medical Necessity Statement: per admitting Coding Level of Care Code Acute Code for Chg Fwd High MDM includes number and complexity of problems actively addressed during encounter, amount and/or complexity of data reviewed/ordered and described risk of complication, morbidity or mortality of management as documented Diagnoses C. difficile diarrhea A04.72 Pancreatitis K85.90 Persistent fever R50.9
--- NOTE | 2024-12-26 11:14 | CT_ITS ---
WS: [id number] CT CHEST, ABDOMEN AND PELVIS WITH CONTRAST HISTORY: f/up pancreatitis for complications TECHNIQUE: Contiguous 5 mm axial imaging performed through the chest, abdomen and pelvis with IV contrast, oral contrast has Been provided. Coronal and sagittal reformats chest. Coronal and sagittal reformats through the abdomen and pelvis. All CT scans at [facility] use at least one of these dose optimization techniques: automated exposure control; mA and/or kV adjustment per patient size (includes targeted exams where dose is matched to clinical indication); or iterative reconstruction. CONTRAST: Omnipaque 350; 100 mL IV. DLP: 1375.48 mGy.cm COMPARISON: 12/21/[address]: Lung volumes are decreased due to poor inspiratory effort. Subsegmental atelectasis bilaterally at the lung bases. Small amount of atelectasis also at the lingula. No pneumonia. No pericardial effusion. Small LEFT pleural effusion. Mild atherosclerosis aorta. Normal size heart. LEFT thyroid not identified may have been surgically removed. Mild small hiatal hernia. Abdomen CT: Normal size liver. Small stable posterior hepatic cysts. No intrahepatic ductal dilatation. Gallbladder is contracted. Contraction is new since the prior study. There is a small amount of adjacent inflammation. No common bile duct dilatation. Normal spleen. Normal portal vein. Portal vein is not as well opacified as compared to the prior study but this is probably due to the contrast injection. Pancreas: Continued diffuse edematous pancreatitis. Pancreas is enlarged with peripancreatic fluid. The amount of fluid has progressed. There is no pancreatic duct dilatation. No well-formed pseudocyst. Changes of pancreatitis extend to the stomach and the duodenum and along the perinephric fascia. There is a curvilinear calcification over the pancreatic body which appears to be within the splenic artery. Atherosclerosis aorta. No renal obstruction. No GI tract obstruction. Pelvic CT: Small amount of free fluid in the pelvis. Numerous diverticula. No evidence for acute diverticulitis. Urinary bladder is well distended. Increase in lumbar lordosis. L4 anterolisthesis by 5 mm. Facet joint arthropathy at L4-5 greatest on the LEFT. CT/CT chest abdpel w/*[id number] IMPRESSION: 1. Progression of acute pancreatitis since 12/21/2024. 2. Increasing peripancreatic edema, soft tissue stranding and fluid. No formed fluid collections to suggest a pseudocyst or abscess. 3. Pancreas enhances diffusely. No hemorrhagic pancreatitis. 4. Contracted gallbladder. Minimal gallbladder wall thickening. 5. No intrahepatic duct dilatation. Common bile duct is normal. 6. Bibasilar atelectasis. Atelectasis and opacification of the LEFT lung base has improved since 12/21/2024. 7. Very small LEFT pleural effusion is unchanged. 8. Small amount of free fluid in the pelvis has decreased since 12/21/2024. 9. Minimal LEFT retroareolar soft tissue thickening. Recommend diagnostic mamm ography as an outpatient.
[2024-12-26] MEDS: iohexol 350 mg/mL 500 mL Btl (per mL) IV (12:11)
[2024-12-26] MEDS: pantoprazole 40 mg SDV IVP (12:29)
--- NOTE | 2024-12-26 13:02 | P.PN_ITS ---
Subjective 2 Subjective: seen this morning feels slightly better not able to eat much, pt does not like the food had 3 more episodes of diarrhea Vitals/I&O/Wt Last Vital Signs Temp 98.7 F 12/26/24 12:00 Pulse 85 12/26/24 12:00 Resp 16 12/26/24 12:00 BP 139/83 12/26/24 12:00 Pulse Ox 91 12/26/24 12:00 O2 Del Method Room Air 12/26/24 12:00 O2 Flow Rate 2 12/24/24 20:20 12/25/24 12/26/24 12/26/24 22:59 06:59 14:59 Intake Total 400 / 810 180 / 990 290 / 290 Balance 400 / 810 180 / 990 290 / 290 Physical Exam 2 Narrative: Sitting up in chair. Const: COMMON NORMALS: patient oriented x3 and alert GENERAL APPEARANCE: c ooperative ORIENTATION/CONSCIOUSNESS: Yes awake HENMT: COMMON NORMALS: oropharynx normal Resp: COMMON NORMALS: normal respiratory effort and clear to auscultation bilaterally AUSCULTATION: clear to auscultation bilaterally Cardio: COMMON NORMALS: regular rhythm, S1 normal heart sound present, S2 normal heart sound present and No murmurs present (Cardio) RATE: tachycardic RHYTHM: regular rhythm HEART SOUNDS: S1 normal heart sound present and S2 normal heart sound present GI: COMMON NORMALS: Soft to palpation PALPATION: Yes Soft to palpation, No Tenderness to palpation present (GI) and Yes Other GI palpation findings present (improved abdominal exam) Extremity: COMMON NORMALS: no joint enlargement GENERAL: Yes edema (Trace) Neuro: COMMON NORMALS: patient oriented x3 and moves all extremities S ENSORIUM/ORIENTATION: Yes alert Skin: COMMON NORMALS: no rashes or lesions noted GENERAL SKIN EXAM: no rashes or lesions noted Data 12/26/24 03:29 12/25/24 02:43 A&P Assessment and plan (1) Pancreatitis: Improvement has slowed somewhat, further improvement in leukocytosis on review of CBC, however, poor oral intake, additionally dry heaving, nausea today. Some vomiting. Continue Zofran as needed. Add Reglan. Holding off on advancement of diet for now, agree with surgery continue full liquid today, consider soft diet tomorrow. If improving and able to advance, possibly could discharge tomorrow. She does state that she may not have a caregiver to receive her tomorrow. Discussed with manager case management, will follow-up with her. She is considering another option who may help her get settled at home upon return. Reviewed PT assessment, with recommended continued home exercise. Repeat CBC, chemistry. Reviewed intake and output, chemistry. Reviewed surgery note. Discussed with nursing, manager case management. 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 Reviewed chemistry, T. bili further down to 1.2. Alk phos was down to 128. Upon further evaluation, general surgery was comfortable with her admission here with further consideration of early cholecystectomy versus delayed cholecystectomy with follow-up after recovery from pancreatitis. Abdominal pain overall has improved. Complicated by SVT, so far without recurrence. Surgery further reevaluated with regards to consideration of cholecystectomy today, with recurrent indicators of cholecystitis, mild pericholecystic edema on imaging, improving biliary parameters, issues with tachyarrhythmia, planning and status tube pursue delayed cholecystectomy after resolution of of pancreatitis. DC IVF. Continue acetaminophen as needed for pain. IV morphine as needed for severe breakthrough. (2) SVT (supraventricular tachycardia): Give additional potassium replacement, unreviewed 3.5. Requesting K nicehlle. Reviewed cardiology note. 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 Agree with addition of metoprolol which they may further adjust today, and continuing Cardizem. Monitor for risk of hypotension with combination of Cardizem and metoprolol. Continuous telemetry monitoring. (3) Cholecystitis: Reviewed surgery note. Cont Zosyn for now. Full liquids for now, possible advancement to soft tomorrow and possible discharge. Discussed with surgery and with her on further surgery reevaluation, will be planning for delayed outpatient cholecystectomy after improvement from acute pancreatitis. Trial of advancement of diet Reviewed MRCP, cholelithiasis with mild pericholecystic edema. Mild pericholecystic changes on CT reassessment. As above. (4) UTI (urinary tract infection): Reviewed urine culture, positive for E. coli, resistant to ampicillin. Continue treatment with Zosyn. Plan Atrial fibrillation with RVR: With surgery deferred at this time, may be able to resume anticoagulation, possibly with Lovenox for now. She usually takes Cardizem which has been. Monitor on telemetry. MARYCARMEN: Does not wear CPAP Hypothyroidism: Levothyroxine DM2: Currently NPO. Hypoglycemia protocol. COPD: Not in exacerbation, DuoNebs as needed. Budesonide. Osteoarthritis RA 12/24/2024 continue vanc + zosyn for empiric coverage continue levothyroxine, diltiazem, metoprolol succ continue full liquid, hold off on going to GI soft diet stool sample positive for c.diff continue oral vancomycin dc home once able to tolerate gi soft diet 12/25/2024 pt positive for c.diff continue oral vanc x 10 days wbc 19K stop zosyn at 7 days. last dose 12/26 cotninue to monitor electrolytes advance diet to gi soft gen surgery following possible dc home in 24-48 hours once pt able to tolerate gi soft diet diarrhea hasnt improved yet. 12/26/2024 wbc count 19.55K this am continues to have diarrhea fever overnight 100.5 consult ID await recommendations check ct chest abd pelvis continue zosyn continue GI soft diet, requires continued hospitalization at this time, fever of unknown origin further mgmt decisions to be made after discussion with ID and reviewing imaging. switch from vanc to dificid PDMP PDMP Reviewed: Not Reviewed Attestations 2 Medical Necessity Statement*: leukocytosis, continue hospitalization Diagnoses Pancreatitis K85.90 SVT (supraventricular tachycardia) I47.10 Cholecystitis K81.9 UTI (urinary tract infection) N39.0
[2024-12-26 14:15] LABS: Alanine Aminotransferase 50 U/L (0-33); Albumin Level 2.8 g/dL (3.5-5.2); Alkaline Phosphatase 183 U/L (35-105); Anion Gap 16.5 (5-19); Aspartate Amino Transferase 32 U/L (0-32); Blood Urea Nitrogen 9 mg/dL (8-23); Calcium 8.1 mg/dL (8.5-10.5); Carbon Dioxide 24 mmol/L (22-29); Chloride 98 mmol/L (98-107); Creatinine Clr Calc Pharmacy 89.2258; Globulin 3.7 g/dL (1.3-4.6); Glucose 119 mg/dL (65-115); Osmolality Calculated 280 mOsm/kg (285-295); Potassium 3.5 mmol/L (3.5-5.1); Sodium 135 mmol/L (136-145); Total Bilirubin 0.5 mg/dL (0.15-1.2); Total Protein 6.5 g/dL (6.6-8.7)
--- NOTE | 2024-12-26 14:23 | PC.SOCIAL ---
IMM Update pg 2 of IMM Updated and reviewed w/ patient. copy provided and copy dated, initialed and placed in chart.
[2024-12-26 16:21] LABS: Adenovirus Not Detected (NOT DETECT); Chlamydia Pneumoniae Not Detected (NOT DETECT); Coronavirus 229E,HKU1,NL63,OC4 Not Detected (NOT DETECT); Human Metapneumovirus Not Detected (NOT DETECT); Human Rhinovirus/Enterovirus Not Detected (NOT DETECT); Influenza A Not Detected (NOT DETECT); Influenza A H1 Not Detected (NOT DETECT); Influenza A H1-2009 Not Detected (NOT DETECT); Influenza A H3 Not Detected (NOT DETECT); Influenza B Not Detected (NOT DETECT); Mycoplasma Pneumoniae Not Detected (NOT DETECT); Parainfluenza Virus Type 1 Not Detected (NOT DETECT); Parainfluenza Virus Type 2 Not Detected (NOT DETECT); Parainfluenza Virus Type 3 Not Detected (NOT DETECT); Parainfluenza Virus Type 4 Not Detected (NOT DETECT); Respiratory Syncytial Virus A Not Detected (NOT DETECT); Respiratory Syncytial Virus B Not Detected (NOT DETECT); SARS-COV-2 Not Detected (NOT DETECT)
[2024-12-26 16:36] LABS: Glucose Point of Care 112 mg/dL (70-110)
--- NOTE | 2024-12-26 16:41 | PHA.VACGOAL ---
Vancomycin Goal - Goal Vancomycin Goal:: 10-15 mg/L Vancomycin Indication:: Other - Therapy Current therapy:: Pip/Tazo Day of therpy:: Day []of [] . Actual body weight (kg): 265 lb 10.512 oz - Data Labs: WBC 19.55 10^3/uL (3.29-11.43) H 12/26/24 03:29 RBC 3.45 10^6/uL (3.85-5.65) L 12/26/24 03:29 Hgb 10.10 g/dL (11.27-16.99) L 12/26/24 03:29 Hct 33.2 % (36-47) L 12/26/24 03:29 MCV 96.2 fl (85-98) 12/26/24 03:29 MCH 29.3 pg (27-33) 12/26/24 03: MCHC 30.4 g/dL (30-55) D 12/26/24 03:29 RDW 14.3 % (12.1-15.1) 12/26/24 03:29 Sodium 135 mmol/L (136-145) L 12/26/24 13:35 Potassium 3.5 mmol/L (3.5-5.1) 12/26/24 13:35 Chloride 98 mmol/L (98-107) 12/26/24 13:35 Carbon Dioxide 24 mmol/L (22-29) 12/26/24 13:35 Anion Gap 16.5 (5-19) 12/26/24 13:35 BUN 9 mg/dL (8-23) 12/26/24 13:35 Creatinine 0.7 mg/dL (0.5-0.9) 12/26/24 13:35 GFR Calculation 83.0 mL/min (90-130) L 12/26/24 13:35 Last dialysis session:: N/A Treatment plan:: new consult Regimen:: NO LOADING DOSE GIVEN PER DOCTORS ORDERS. MAINTENANCE DOSE OF 2000 MG Q12H PER DOSING PROTOCOL. Follow up:: WILL CONTINUE TO MONITOR AND FOLLOW UP DAILY.
[2024-12-26] MEDS: fidaxomicin 200 mg Tablet PO (17:08)
[2024-12-26] MEDS: vancomycin 2,000 MG/400 ML PIGGYBACK 200 MG IV (17:08)
[2024-12-26 20:19] LABS: Glucose Point of Care 147 mg/dL (70-110)
[2024-12-27] VITALS (11 sets, daily range): BP systolic 137–151; BP diastolic 72–89; PULSE 66–94; RESP 15–19; TEMP 36.4–37.6; O2SAT 90–94
[2024-12-27] MEDS: acetaminophen 325 mg Tablet 650 MG PO ×2 (01:36→18:15)
[2024-12-27] MEDS: ondansetron 2 mg/ML SDV 2 mL 4 MG IVP (01:36)
[2024-12-27] MEDS: levothyroxine 75 mcg Tablet PO (05:26)
[2024-12-27] MEDS: METOCLOPRAMIDE HCL 10 MG/10 ML UDC 5 MG PO ×4 (05:26→20:49)
[2024-12-27] MEDS: vancomycin 2,000 MG/400 ML PIGGYBACK 200 MG IV ×2 (05:26→17:24)
[2024-12-27] MEDS: dilTIAZem ER (24HR) 300 mg Capsule PO (05:26)
[2024-12-27 06:13] LABS: Glucose Point of Care 125 mg/dL (70-110)
[2024-12-27 06:37] LABS: Basophils # 0.1 10^3/uL (0.0-0.1); Basophils % 0.3 %; Eosinophils # 0.3 10^3/uL (0.0-0.8); Eosinophils % 1.1 %; Hematocrit 29.8 % (36-47); Lymphocytes # 1.6 10^3/uL (0.8-4.8); Lymphocytes % 6.6 %; Mean Corpuscular HGB Conc 32.2 g/dL (30-55); Mean Platelet Volume 10.4 fL (7.4-10.4); Monocytes # 1.3 10^3/uL (0.2-0.9); Monocytes % 5.6 %; Neutrophils # 19.87 10^3/uL (1.8-7.7); Neutrophils % 83.2 %; Nucleated Red Blood Cells % 0 %; Platelet Count 342 10^3/cmm (157-399); Red Blood Count 3.31 10^6/uL (3.85-5.65); Red Cell Distribution Width 14.3 % (12.1-15.1); White Blood Count 23.88 10^3/uL (3.29-11.43)
[2024-12-27 06:56] LABS: Alanine Aminotransferase 44 U/L (0-33); Albumin Level 2.5 g/dL (3.5-5.2); Alkaline Phosphatase 164 U/L (35-105); Anion Gap 16.8 (5-19); Aspartate Amino Transferase 33 U/L (0-32); Blood Urea Nitrogen 8 mg/dL (8-23); Calcium 7.9 mg/dL (8.5-10.5); Carbon Dioxide 22 mmol/L (22-29); Chloride 100 mmol/L (98-107); Creatinine Clr Calc Pharmacy 89.2258; Globulin 3.2 g/dL (1.3-4.6); Glucose 123 mg/dL (65-115); Magnesium 1.7 mg/dL (1.7-2.3); Osmolality Calculated 280 mOsm/kg (285-295); Potassium 3.8 mmol/L (3.5-5.1); Sodium 135 mmol/L (136-145); Total Bilirubin 0.4 mg/dL (0.15-1.2); Total Protein 5.7 g/dL (6.6-8.7)
--- NOTE | 2024-12-27 07:47 | P.PN_ITS ---
Subjective 2 Subjective: 69-year-old female who presented to the hospital with moderate to severe acute pancreatitis likely from biliary origin. Patient initially significantly improving and clinically she is improving but over the last 72 hours we have seen an uptrend of the white count, she has continued to have persistent diarrhea. Abdominal pain has improved. She has also had some episodes of fever over the last 24 hours. Currently she is tolerating diet and still having diarrhea no other significant clinical complaints Vitals/I&O/Wt Last Vital Signs Temp 99.0 F 12/27/24 04:00 Pulse 94 12/27/24 04:00 Resp 18 12/27/24 04:00 BP 137/74 12/27/24 04:00 Pulse Ox 92 12/27/24 04:00 O2 Del Method Room Air 12/27/24 04:00 O2 Flow Rate 2 12/24/24 20:20 12/26/24 12/27/24 12/27/24 22:59 06:59 14:59 Intake Total 930.000 / 1580.000 460 / 2040.000 Balance 930.000 / 1580.000 460 / 2040.000 Physical Exam 2 GI: OTHER: Abdomen soft nontender nondistended. Data 12/27/24 06:14 12/27/24 06:14 Micro: Microbiology 12/26/24 13:41 Blood Culture - Preliminary Blood SPECIMEN COLLECTED 12/26/24 13:35 Blood Culture - Preliminary Blood SPECIMEN COLLECTED A&P Assessment and plan (1) Pancreatitis: (2) Severe acute pancreatitis: Plan CT of the chest abdomen and pelvis was done yesterday. It shows worsening pancreatitis with no significant amount of fluid in the retroperitoneum around the duodenal C-loop and the base of the mesentery consistent with progression of her pancreatitis, imaging shows no evidence of acute cholecystitis, gallbladder appears to be slightly contracted which is consistent with a nonfasting state of the patient. White count continue to trend up and is 23.8 today. Biliary workup shows evidence of an alk phos of 180 and it has been trending over the last 24 to 48 hours. While clinically she is improving, it is apparent that the majority of her symptoms as well as elevation in the count is likely due to a persistent acute pancreatitis. Since there is no improvement of vitals and white count I think patient may benefit from evaluation by a GI specialist, she may need endoscopic evaluation with possible pancreatic duct stenting to facilitate resolution of her pancreatitis, since there is a consistent elevation of the alkaline phosphatase this indicates possible ductal pathology and may indicate that there is significant inflammation at the level of the pancreatic duct that is impeding the drainage of the pancreas. From the general surgery standpoint there is no indication for active surgical intervention at this point. Patient pancreatitis need to completely resolve before thinking of any kind of biliary intervention as proceeding with a cholecystectomy at this point will be unsafe. Any additional management per medical team - Continues with worsening pancreatitis, consider GI evaluation, may require endoluminal evaluation of pancreatic duct. PDMP PDMP Reviewed: Not Reviewed Attestations 2 Medical Necessity Statement*: Per medical team Coding Level of Care Code Acute Code for Chg Fwd Diagnoses Pancreatitis K85.90 Severe acute pancreatitis K85.90
[2024-12-27] MEDS: levalbuterol 0.63 mg/3 mL Neb INHALATION (08:19)
[2024-12-27] MEDS: budesonide 0.5 mg/2 mL Neb 0.25 MG INHALATION ×2 (08:19→20:43)
[2024-12-27] MEDS: piperacillin-tazobactam 3.375 GM in sodium chloride 0.9% (plus) 50 ML IV ×2 (10:15→17:24)
[2024-12-27] MEDS: metoprolol succinate ER (24 HR) 25 mg Tablet 37.5 MG PO (10:16)
[2024-12-27] MEDS: fidaxomicin 200 mg Tablet PO ×2 (10:16→17:23)
[2024-12-27] MEDS: montelukast sodium 10 mg Tablet PO (10:16)
[2024-12-27] MEDS: apixaban 5 mg Tablet PO ×2 (10:17→17:23)
[2024-12-27] MEDS: pantoprazole 40 mg SDV IVP (11:19)
[2024-12-27 11:31] LABS: Glucose Point of Care 143 mg/dL (70-110)
--- NOTE | 2024-12-27 13:26 | PM.TDS ---
Transfer Summary Providers Date of Admission: 12/20/24 16:31 Date of Discharge/Transfer: 12/27/24 Attending Provider at Admission: Chandrakant Lance Attending Provider at Transfer: Ada Bond MD Primary Care Provider: Sudheer Ivy Transfer Plans: Anticipated date of transfer: 12/27/24. Diagnoses at Discharge Discharge Diagnosis (1) Pancreatitis: Status: Acute (2) Severe acute pancreatitis: Status: Acute Reason for Visit Reason for Visit n/v Hospital Course Hospital Course Priti Hurtado is a 69 year old female who presented to the emergency room on 12/19/2024 with chief complaints of diffuse abdominal pain. She was found to have significantly elevated lipase, elevated LFTs diagnosis of gallstone pancreatitis. An MRCP was performed which showed marked inflammation involving the body and tail of the pancreas with fluid noted throughout the left upper quadrant. Gallbladder and biliary ducts showed multiple gallstones and sludge within the gallbladder with pericholecystic edema. LFT upon admission showed a T. bili of 2.5, which has since improved to 0.6 on December 24, 2024. AST of 671 upon admission improved to 21 on December 24. ALT of 417, improved to 70 currently. Alkaline phosphatase of 138 upon admission, currently at 132. Triglyceride level was 56. Alcohol level not available. Patient was initially planned to be transferred to [facility] with the hospitalist accepting, however it is my understanding that eventually this transfer was deferred as there were no beds and patient was clinically improving. Patient was admitted to the hospitalist service here. General surgery was consulted to evaluate for cholecystectomy in view of gallstone pancreatitis. It was opined that in patients with moderate to severe acute pancreatitis that undergo an early cholecystectomy the risks of complications including biliary leak, conversion to open procedure, morbidity or mortality is increased. Was recommended to wait for 4 to 6 weeks to undergo an elective cholecystectomy down the line. Hospital course has been complicated by a persistent leukocytosis, intermittent fever and SVT for which cardiology has been following the patient. She is currently cleared tolerating a soft diet. She states her abdominal pain is improved over admission but continues to have intermittent discomfort. Additionally states that she has been having issues with on and off diarrhea since August 2024 and which appeared to have become more prominent just prior to [facility]. States that diarrhea was foul-smelling, watery, orange to dark brown-colored mostly, self resolving. This was thought to be related to symptomatic cholelithiasis and patient was planned for an outpatient ultrasound on 12/22/2024, however she needed to present to the emergency room for worsening symptoms prior to this day. C. difficile PCR returned positive after she developed 3 episodes of watery bowel movements. She has been on treatment with piperacillin/tazobactam between 12/19 to 12/26/2024. There are no blood cultures Obtained during the admission course. Urine culture from December 19, 2024 had shown E. coli ; the patient denies any urinary symptoms currently or at admission. reports h/o leaky valves LV systolic function is normal with EF of 60-65%.Grade 1 diastolic dysfunction.Trace mitral regurgitation.Insufficient TR jet. Tmax is 101.1F. Continue antibiotics vancomycin and Zosyn. . Patient's white count has been worsening To 23,[address] chest and pelvis obtained yesterday shows: 1. Progression of acute pancreatitis since 12/21/2024. 2. Increasing peripancreatic edema, soft tissue stranding and fluid. No formed fluid collections to suggest a pseudocyst or abscess. 3. Pancreas enhances diffusely. No hemorrhagic pancreatitis. 4. Contracted gallbladder. Minimal gallbladder wall thickening. 5. No intrahepatic duct dilatation. Common bile duct is normal. 6. Bibasilar atelectasis. Atelectasis and opacification of the LEFT lung base has improved since 12/21/2024. 7. Very small LEFT pleural effusion is unchanged. 8. Small amount of free fluid in the pelvis has decreased since 12/21/2024. 9. Minimal LEFT retroareolar soft tissue thickening. Recommend diagnostic mammography as an outpatient. Had a long discussion with general surgeon and ID. Since patient's pancreatitis is worsening he would like to consult GI for further evaluation. Patient may require an ERCP going forward after GI consultation obtained. Our hospital does not have GI therefore we will be transferring her to higher level of care to a facility with GI capabilities. Discussed with patient was agreeable at this time for transfer Call placed to [facility]. Awaiting callback. Recommendation by gen surgery: CT of the chest abdomen and pelvis was done yesterday. It shows worsening pancreatitis with no significant amount of fluid in the retroperitoneum around the duodenal C-loop and the base of the mesentery consistent with progression of her pancreatitis, imaging shows no evidence of acute cholecystitis, gallbladder appears to be slightly contracted which is consistent with a nonfasting state of the patient. White count continue to trend up and is 23.8 today. Biliary workup shows evidence of an alk phos of 180 and it has been trending over the last 24 to 48 hours. While clinically she is improving, it is apparent that the majority of her symptoms as well as elevation in the count is likely due to a persistent acute pancreatitis. Since there is no improvement of vitals and white count I think patient may benefit from evaluation by a GI specialist, she may need endoscopic evaluation with possible pancreatic duct stenting to facilitate resolution of her pancreatitis, since there is a consistent elevation of the alkaline phosphatase this indicates possible ductal pathology and may indicate that there is significant inflammation at the level of the pancreatic duct that is impeding the drainage of the pancreas. From the general surgery standpoint there is no indication for active surgical intervention at this point. Patient pancreatitis need to completely resolve before thinking of any kind of biliary intervention as proceeding with a cholecystectomy at this point will be unsafe. Any additional management per medical team - Continues with worsening pancreatitis, consider GI evaluation, may require endoluminal evaluation of pancreatic duct. Physical Exam Narrative: Sitting up in chair. Const: COMMON NORMALS: patient oriented x3 and alert GENERAL APPEARANCE: cooperative ORIENTATION/CONSCIOUSNESS: Yes awake HENMT: COMMON NORMALS: oropharynx normal Resp: COMMON NORMALS: normal respiratory effort and clear to auscultation bilaterally AUSCULTATION: clear to auscultation bilaterally Cardio: COMMON NORMALS: regular rhythm, S1 normal heart sound present, S2 normal heart sound present and No murmurs present (Cardio) RATE: tachycardic RHYTHM: regular rhythm HEART SOUNDS: S1 normal heart sound present and S2 normal heart sound present GI: COMMON NORMALS: Soft to palpation PALPATION: Yes Soft to palpation, No Tenderness to palpation present (GI) and Yes Other GI palpation findings present (improved abdominal exam) Extremity: COMMON NORMALS: no joint enlargement GENERAL: Yes edema (Trace) Neuro: COMMON NORMALS: patient oriented x3 and moves all extremities SENSORIUM/ORIENTATION: Yes alert Skin: COMMON NORMALS: no rashes or lesions noted GENERAL SKIN EXAM: no rashes or lesions noted TS Data Studies Completed and Pending Pending at discharge Category Date Time Status Blood Culture Stat Lab 12/26/24 13:41 Results Vancomycin Trough Timed Lab 12/28/24 04:00 Ordered Completed Studies During Hospitalization Category Date Time Status CT abdomen pelvis w con* [id number] Stat Cat Scan 12/21/24 05:[address] chest abdpel w/*[id number] Routine Cat Scan 12/26/24 11:14 Completed MR MRCP [id number] Stat MRI 12/19/24 13:23 Completed CV. echo complete* [id number] Stat Ultrasound 12/21/24 09:07 Completed US gall bladder [id number] Stat Ultrasound 12/19/24 10:58 Completed Laboratory Last Values WBC 23.88 10^3/uL (3.29-11.43) H 12/27/24 06:14 RBC 3.31 10^6/uL (3.85-5.65) L 12/27/24 06:14 Hgb 9.60 g/dL (11.27-16.99) L 12/27/24 06:14 Hct 29.8 % (36-47) L 12/27/24 06:14 MCV 90.0 fl (85-98) 12/27/24 06:14 MCH 29.0 pg (27-33) 12/27/24 06:14 MCHC 32.2 g/dL (30-55) D 12/27/24 06:14 RDW 14.3 % (12.1-15.1) 12/27/24 06:14 Plt Count 342 10^3/cmm (157-399) 12/27/24 06:14 MPV 10.4 fL (7.4-10.4) 12/27/24 06:14 Neut % (Auto) 83.2 % 12/27/24 06:14 Lymph % (Auto) 6.6 % 12/27/24 06:14 Cook % (Auto) 5.6 % 12/27/24 06:14 Eos % (Auto) 1.1 % 12/27/24 06:14 Baso % (Auto) 0.3 % 12/27/24 06:14 Neut # (Auto) 19.87 10^3/uL (1.8-7.7) H 12/27/24 06:14 Lymph # (Auto) 1.6 10^3/uL (0.8-4.8) 12/27/24 06:14 Cook # (Auto) 1.3 10^3/uL (0.2-0.9) H 12/27/24 06:14 Eos # (Auto) 0.3 10^3/uL (0.0-0.8) 12/27/24 06:14 Baso # (Auto) 0.1 10^3/uL (0.0-0.1) 12/27/24 06:14 Nucleated RBC % (auto) 0 % 12/27/24 06:14 Nucleated RBCs # 0.0 /100WBC 12/27/24 06:14 Sodium 135 mmol/L (136-145) L 12/27/24 06:14 Potassium 3.8 mmol/L (3.5-5.1) 12/27/24 06:14 Chloride 100 mmol/L (98-107) 12/27/24 06:14 Carbon Dioxide 22 mmol/L (22-29) 12/27/24 06:14 Anion Gap 16.8 (5-19) 12/27/24 06:14 BUN 8 mg/dL (8-23) 12/27/24 06:14 Creatinine 0.7 mg/dL (0.5-0.9) 12/27/24 06:14 GFR Calculation 83.0 mL/min (90-130) L 12/27/24 06:14 Glucose 123 mg/dL (65-115) H 12/27/24 06:14 POC Glucose 143 mg/dL (70-110) H 12/27/24 11:17 Calculated Osmolality 280 mOsm/kg (285-295) L 12/27/24 06:14 Lactic Acid 1.2 mmol/L (0.5-2.2) 12/20/24 06:49 Calcium 7.9 mg/dL (8.5-10.5) L 12/27/24 06:14 Magnesium 1.7 mg/dL (1.7-2.3) 12/27/24 06:14 Total Bilirubin 0.4 mg/dL (0.15-1.2) 12/27/24 06:14 Direct Bilirubin 1.00 mg/dL (0.00-0.30) H 12/21/24 02:45 AST 33 U/L (0-32) H 12/27/24 06:14 ALT 44 U/L (0-33) H 12/27/24 06:14 Alkaline Phosphatase 164 U/L (35-105) H 12/27/24 06:14 Total Protein 5.7 g/dL (6.6-8.7) L 12/27/24 06:14 Albumin 2.5 g/dL (3.5-5.2) L 12/27/24 06:14 Globulin 3.2 g/dL (1.3-4.6) 12/27/24 06:14 Triglycerides 56 mg/dL (0-150) 12/20/24 18:10 Cholesterol 127 mg/dL (0-200) 12/20/24 18:10 LDL Cholesterol, Calc 65 mg/dL (50-129) 12/20/24 18:10 HDL Cholesterol 51 mg/dL (60-100) L 12/20/24 18:10 LDL/HDL Ratio 1.27 RATIO (0.00-3.22) 12/20/24 18:10 Cholesterol/HDL Ratio 2.49 mg/dL (0.0-4.40) 12/20/24 18:10 Lipase 1964 U/L (13-60) H 12/21/24 02:45 Urine Color Dark yellow (Yellow) A 12/19/24 14:48 Urine Appearance Slightly cloudy (CLEAR) 12/19/24 14:48 Urine pH 5 (5-7) 12/19/24 14:48 Ur Specific [place] 1.010 (1.005-1.030) 12/19/24 14:48 Urine Protein 2+ (Negative) H 12/19/24 14:48 Urine Glucose (UA) Norm (Normal) 12/19/24 14:48 Urine Ketones Negative (Negative) 12/19/24 14:48 Urine Blood 2+ (Negative) H 12/19/24 14:48 Urine Nitrate Negative (Negative) 12/19/24 14:48 Urine Bilirubin 1+ (Negative) H 12/19/24 14:48 Urine Urobilinogen 4 mg/dL (Negative) H 12/19/24 14:48 Ur Leukocyte Esterase 2+ (Negative) H 12/19/24 14:48 Urine RBC 3-5 /hpf (0-2) 12/19/24 14:48 Urine WBC 51-100 /hpf (0-5) H 12/19/24 14:48 Ur Squamous Epith Cells 6-10 /hpf (0-5) 12/19/24 14:48 Amorphous Sediment Not Reportable 12/19/24 14:48 Urine Bacteria 4+ /hpf (NONE) H 12/19/24 14:48 Hyaline Casts 26.85 /lpf 12/19/24 14:48 Adenovirus (PCR) Not detected (NOT DETECT) 12/26/24 14:20 C. pneumoniae DNA (PCR) Not detected (NOT DETECT) 12/26/24 14:20 C. difficile (PCR) Positive (Negative) H 12/23/24 18:00 C.difficile Tox Confrm Negative (Negative) 12/23/24 18:00 Coronavirus 229E (PCR) Not detected (NOT DETECT) 12/26/24 14:20 Human Metapneumovir PCR Not detected (NOT DETECT) 12/26/24 14:20 Influenza A (H1) PCR Not detected (NOT DETECT) 12/26/24 14:20 Influ A (H1/09) PCR Not detected (NOT DETECT) 12/26/24 14:20 Influenza A (H3) PCR Not detected (NOT DETECT) 12/26/24 14:20 Influenza Type A (PCR) Not detected (NOT DETECT) 12/26/24 14:20 Influenza Type B (PCR) Not detected (NOT DETECT) 12/26/24 14:20 M. pneumoniae (PCR) Not detected (NOT DETECT) 12/26/24 14:20 Parainfluenza 1 (PCR) Not detected (NOT DETECT) 12/26/24 14:20 Parainfluenza 2 (PCR) Not detected (NOT DETECT) 12/26/24 14:20 Parainfluenza 3 (PCR) Not detected (NOT DETECT) 12/26/24 14:20 Parainfluenza 4 (PCR) Not detected (NOT DETECT) 12/26/24 14:20 RSV Type A (PCR) Not detected (NOT DETECT) 12/26/24 14:20 RSV Type B (PCR) Not detected (NOT DETECT) 12/26/24 14:20 Entero/Rhino (PCR) Not detected (NOT DETECT) 12/26/24 14:20 SARS-CoV-2 (PCR) Not detected (NOT DETECT) 12/26/24 14:20 Blood Type B Positive 12/20/24 18:10 Rho(D) Type Rh positive 12/20/24 18:10 Antibody Screen Negative 12/20/24 18:10 Radiology Impressions Gallbladder Ultrasound 12/19/24 10:58 IMPRESSION: 1. Cholelithiasis without acute cholecystitis. Additional comet tail artifact from adenomyomatosis. 2. Common bile duct is measuring top normal size. 3. Moderate hepatomegaly with hepatic steatosis. Cholangiopancreatography MRI 12/19/24 13:23 IMPRESSION: 1. Findings consistent with acute pancreatitis 2. Cholelithiasis with mild pericholecystic edema 3. Normal bile ducts Abdomen/Pelvis CT 12/21/24 05:37 IMPRESSION: 1. Minimally abnormal gallbladder. 2. Pancreatitis with retroperitoneal effusion and mild intra-abdominal ascites. COMMENTS: Consistent with the [employer]'s Incidental Findings Committee white paper (J Am John Radiol 2018): Any incidental renal lesion less than 1 cm or classified as too small to characterize, or any incidental cystic renal lesion characterized as simple-appearing, is likely benign. No follow-up imaging is recommended for these lesions per consensus recommendations based on imaging criteria. Chest/Abdomen/Pelvis CT 12/26/24 11:14 IMPRESSION: 1. Progression of acute pancreatitis since 12/21/2024. 2. Increasing peripancreatic edema, soft tissue stranding and fluid. No formed fluid collections to suggest a pseudocyst or abscess. 3. Pancreas enhances diffusely. No hemorrhagic pancreatitis. 4. Contracted gallbladder. Minimal gallbladder wall thickening. 5. No intrahepatic duct dilatation. Common bile duct is normal. 6. Bibasilar atelectasis. Atelectasis and opacification of the LEFT lung base has improved since 12/21/2024. 7. Very small LEFT pleural effusion is unchanged. 8. Small amount of free fluid in the pelvis has decreased since 12/21/2024. 9. Minimal LEFT retroareolar soft tissue thickening. Recommend diagnostic mammography as an outpatient. Recent Clincial Data Last Vital Signs Temp 98.0 F 12/27/24 12:00 Pulse 85 12/27/24 12:00 Resp 16 12/27/24 12:00 BP 145/72 12/27/24 12:00 Pulse Ox 91 12/27/24 12:00 O2 Del Method Room Air 12/27/24 12:00 O2 Flow Rate 2 12/24/24 20:20 Vital Signs Temp Pulse Resp BP Pulse Ox O2 Del Method 12/27/24 12:00 98.0 F 85 16 145/72 91 Room Air 12/27/24 08:20 94 16 94 Room Air 12/27/24 07:59 97.6 F 94 16 149/85 93 Room Air 12/27/24 04:00 99.0 F 94 18 137/74 92 Room Air Intake & Output/Weight 12/25/24 12/26/24 12/27/24 12/28/24 06:59 06:59 06:59 06:59 Intake Total 1230.000 / 1230.000 990 / 990 2040.000 / 2040.000 520 / 520 Balance 1230.000 / 1230.000 990 / 990 2040.000 / 2040.000 520 / 520 Vitals Last Vital Signs Temp 98.0 F 12/27/24 12:00 Pulse 85 12/27/24 12:00 Resp 16 12/27/24 12:00 BP 145/72 12/27/24 12:00 Pulse Ox 91 12/27/24 12:00 O2 Del Method Room Air 12/27/24 12:00 O2 Flow Rate 2 12/24/24 20:20 TS Medications Medications Acetaminophen (Acetaminophen 325 Mg Tablet) 650 mg PO Q6H PRN PRN Reason: Mild/Mod Pain Or Temp >/= 101 Last Admin: 12/27/24 01:36 Dose: 650 mg Apixaban (Apixaban 5 Mg Tablet) 5 mg PO BID TONY Last Admin: 12/27/24 10:17 Dose: 5 mg Budesonide (Budesonide 0.5 Mg/2 Ml Neb) 0.25 mg INHALATION BID.RESPIRATORY TONY Last Admin: 12/27/24 08:19 Dose: 0.25 mg Diltiazem HCl (Diltiazem Er (24hr) 300 Mg Capsule) 300 mg PO QAM TONY Last Admin: 12/27/24 05:26 Dose: 300 mg Fidaxomicin (Fidaxomicin 200 Mg Tablet) 200 mg PO BID TONY; Protocol Stop: 01/05/25 09:01 Last Admin: 12/27/24 10:16 Dose: 200 mg Vancomycin HCl (Vancocin) 2,000 mg in 400 mls @ 200 mls/hr IV Q12H TONY Last Infusion: 12/27/24 10:21 Dose: Infused Piperacillin Sod/Tazobactam (Sod 3.375 gm/ Sodium Chloride) 50 mls @ 12.5 mls/hr IV Q8H TONY; Protocol Last Admin: 12/27/24 10:15 Dose: 12.5 mls/hr Levalbuterol HCl (Levalbuterol 0.63 Mg/3 Ml Neb) 0.63 mg INHALATION Q6H.RESP PRN PRN Reason: WHEEZING Last Admin: 12/27/24 08:19 Dose: 0.63 mg Levothyroxine Sodium (Levothyroxine 75 Mcg Tablet) 75 mcg PO QAM TONY Last Admin: 12/27/24 05:26 Dose: 75 mcg Metoclopramide HCl (Metoclopramide Hcl 10 Mg/10 Ml Udc) 5 mg PO AC&BEDTIME [facility] Last Admin: 12/27/24 11:18 Dose: 5 mg Metoprolol Succinate (Metoprolol Succinate Er (24 Hr) 25 Mg Tablet) 37.5 mg PO DAILY [facility] Last Admin: 12/27/24 10:16 Dose: 37.5 mg Montelukast Sodium (Montelukast Sodium 10 Mg Tablet) 10 mg PO DAILY [facility] Last Admin: 12/27/24 10:16 Dose: 10 mg Ondansetron HCl (Ondansetron 2 Mg/Ml Sdv 2 Ml) 4 mg IVP Q8H PRN PRN Reason: vomiting, or N/V if npo Last Admin: 12/27/24 01:36 Dose: 4 mg Pantoprazole Sodium (Pantoprazole 40 Mg Sdv) 40 mg IVP Q24H [facility] Last Admin: 12/27/24 11:19 Dose: 40 mg Discontinued Medications Adenosine (Adenosine 3 Mg/Ml Sdv 2ml) 6 mg IVP ONCE ONE Stop: 12/21/24 05:06 Last Admin: 12/21/24 05:05 Dose: 6 mg Adenosine (Adenosine 3 Mg/Ml Sdv 2ml) 12 mg IVP ONCE ONE Stop: 12/21/24 05:11 Last Admin: 12/21/24 05:10 Dose: 12 mg Adenosine (Adenosine 3 Mg/Ml Sdv 2ml) 12 mg IVP ONCE ONE Stop: 12/21/24 05:13 Last Admin: 12/21/24 05:13 Dose: 12 mg Adenosine (Adenosine 3 Mg/Ml Sdv 2ml) 6 mg IVP ONCE ONE Stop: 12/21/24 07:43 Last Admin: 12/21/24 07:42 Dose: 6 mg Adenosine (Adenosine 3 Mg/Ml Sdv 2ml) 12 mg IVP ONCE ONE Stop: 12/21/24 07:46 Last Admin: 12/21/24 07:45 Dose: 12 mg Albuterol/Ipratropium (Ipratropium-Albuterol 3 Ml Neb) 3 ml INHALATION Q6H PRN PRN Reason: SHORTNESS OF BREATH Last Admin: 12/20/24 19:54 Dose: 3 ml Ceftriaxone Sodium (Ceftriaxone 1,000 Mg Sdv) 1,000 mg IVP ONCE ONE; Protocol Stop: 12/20/24 03:36 Last Admin: 12/20/24 03:41 Dose: 1,000 mg Diltiazem HCl (Diltiazem 5 Mg/Ml Sdv 5 Ml) Confirm Administered Dose 25 mg .ROUTE .STK-MED ONE Stop: 12/21/24 05:14 Last Admin: 12/21/24 05:35 Dose: 25 mg Diltiazem HCl (Diltiazem 5 Mg/Ml Sdv 5 Ml) 30 mg IVP ONCE ONE Stop: 12/21/24 07:46 Last Admin: 12/21/24 09:03 Dose: 30 mg Enoxaparin Sodium (Enoxaparin 40 Mg/0.4 Ml Syringe) 40 mg SUBCUT Q24H [facility] Last Admin: 12/24/24 11:53 Dose: 40 mg Fentanyl (Fentanyl 50 Mcg/Ml Inj 2ml) 50 mcg IVP ONCE ONE Stop: 12/19/24 13:20 Last Admin: 12/19/24 14:06 Dose: 50 mcg Furosemide (Furosemide 10 Mg/Ml Sdv 2ml) 20 mg IVP ONCE ONE Stop: 12/22/24 10:11 Last Admin: 12/22/24 10:42 Dose: 20 mg Sodium Chloride (Sodium Chloride 0.9%) 1,000 mls @ 999 mls/hr IV .Q1H1M ONE Stop: 12/19/24 14:11 Last Infusion: 12/19/24 21:18 Dose: Infused Lactated Ringer's (Lactated Ringers) 1,000 mls @ 150 mls/hr IV .Q6H40M TONY Stop: 12/21/24 08:40 Last Infusion: 12/21/24 18:19 Dose: Infused Sodium Chloride (Sodium Chloride 0.9%) 1,000 mls @ 150 mls/hr IV .Q6H40M TONY Last Admin: 12/20/24 11:43 Dose: Not Given Piperacillin Sod/Tazobactam (Sod 3.375 gm/ Sodium Chloride) 50 mls @ 100 mls/hr IV ONCE ONE; Protocol Stop: 12/20/24 06:41 Last Infusion: 12/20/24 16:31 Dose: Infused Sodium Chloride (Sodium Chloride 0.9%) 3,265.86 mls @ 3,265.86 mls/hr 30 ml/kg infuse over 1 hr (3265.86 ml) IV .Q1H ONE Stop: 12/20/24 07:20 Last Admin: 12/20/24 06:36 Dose: Not Given Sodium Chloride (Sodium Chloride 0.9%) 1,848 mls @ 1,848 mls/hr IV .Q1H ONE Stop: 12/20/24 07:21 Last Infusion: 12/20/24 16:31 Dose: Infused Piperacillin Sod/Tazobactam (Sod 3.375 gm/ Sodium Chloride) 50 mls @ 12.5 mls/hr IV Q8H TONY; Protocol Last Infusion: 12/26/24 20:42 Dose: Infused Magnesium Sulfate (Magnesium Sulfate Premix) 2 gm in 50 mls @ 50 mls/hr IV ONCE ONE Stop: 12/21/24 06:32 Last Infusion: 12/21/24 07:45 Dose: Infused Lidocaine HCl 5 ml/ Potassium (Chloride) 105 mls @ 26.25 mls/hr IV ONCE ONE Stop: 12/21/24 10:56 Last Infusion: 12/21/24 12:20 Dose: Infused Diltiazem HCl 100 mg/ Sodium (Chloride) 100 mls @ 0 mls/hr IV .Q0M TONY; Protocol Sodium Chloride (Sodium Chloride 0.9%) 1,000 mls @ 50 mls/hr IV .Q20H TONY Last Admin: 12/22/24 07:33 Dose: 50 mls/hr Lidocaine HCl 5 ml/ Potassium (Chloride) 105 mls @ 52.5 mls/hr IV ONCE ONE Stop: 12/23/24 17:58 Last Admin: 12/23/24 16:06 Dose: Not Given Lidocaine HCl 5 ml/ Potassium (Chloride) 105 mls @ 52.5 mls/hr IV ONCE ONE Stop: 12/23/24 19:59 Last Infusion: 12/23/24 21:11 Dose: Infused Vancomycin HCl / Sodium (Chloride) 250 mls @ 0 mls/hr [id number] PROTOCOL TONY; Protocol Iohexol (Iohexol 350 Mg/Ml 500 Ml Btl (Per Ml)) 0 ml IV ONCE ONE Stop: 12/21/24 06:28 Last Admin: 12/21/24 06:27 Dose: 100 ml Iohexol (Iohexol 350 Mg/Ml 500 Ml Btl (Per Ml)) 0 ml IV ONCE ONE Stop: 12/26/24 12:12 Last Admin: 12/26/24 12:11 Dose: 100 ml Metoprolol Succinate (Metoprolol Succinate Er (24 Hr) 25 Mg Tablet) 12.5 mg PO DAILY [facility] Last Admin: 12/22/24 09:03 Dose: 12.5 mg Metoprolol Succinate (Metoprolol Succinate Er (24 Hr) 25 Mg Tablet) 25 mg PO DAILY [facility] Last Admin: 12/23/24 08:11 Dose: 25 mg Metoprolol Succinate (Metoprolol Succinate Er (24 Hr) 25 Mg Tablet) 12.5 mg PO NOW ONE Stop: 12/22/24 10:10 Last Admin: 12/22/24 10:42 Dose: 12.5 mg Midazolam HCl (Midazolam 1 Mg/Ml Inj 2 Ml) 3 mg IVP ONCE STA Stop: 12/21/24 07:52 Last Admin: 12/21/24 08:01 Dose: 3 mg Midazolam HCl (Midazolam 1 Mg/Ml Inj 2 Ml) Confirm Administered Dose 2 mg .ROUTE .STK-MED ONE Stop: 12/21/24 08:11 Last Admin: 12/21/24 08:21 Dose: 2 mg Morphine Sulfate (Morphine 4 Mg/Ml Sdv 1 Ml) 4 mg IVP ONCE ONE Stop: 12/19/24 19:47 Last Admin: 12/19/24 19:58 Dose: 4 mg Morphine Sulfate (Morphine 4 Mg/Ml Sdv 1 Ml) 4 mg IVP ONCE ONE Stop: 12/20/24 03:50 Last Admin: 12/20/24 03:54 Dose: 4 mg Morphine Sulfate (Morphine 4 Mg/Ml Sdv 1 Ml) 2 mg IVP Q4H PRN PRN Reason: SEVERE PAIN Last Admin: 12/23/24 06:18 Dose: 2 mg Morphine Sulfate (Morphine 4 Mg/Ml Sdv 1 Ml) 8 mg IVP ONCE STA Stop: 12/21/24 07:52 Last Admin: 12/21/24 08:01 Dose: 8 mg Ondansetron HCl (Ondansetron 2 Mg/Ml Sdv 2 Ml) 4 mg IVP ONCE ONE Stop: 12/19/24 13:12 Last Admin: 12/19/24 14:05 Dose: 4 mg Ondansetron HCl (Ondansetron 2 Mg/Ml Sdv 2 Ml) 4 mg IVP ONCE ONE Stop: 12/19/24 19:47 Last Admin: 12/19/24 19:58 Dose: 4 mg Ondansetron HCl (Ondansetron 2 Mg/Ml Sdv 2 Ml) 4 mg IVP ONCE ONE Stop: 12/20/24 03:50 Last Admin: 12/20/24 03:54 Dose: 4 mg Potassium Chloride (Potassium Chloride Er 20 Meq Tablet) 40 meq PO ONCE ONE Stop: 12/21/24 05:35 Last Admin: 12/21/24 07:07 Dose: Not Given Potassium Chloride (Potassium Chloride Er 20 Meq Tablet) 20 meq PO ONCE ONE Stop: 12/22/24 09:31 Last Admin: 12/22/24 10:03 Dose: 20 meq Vancomycin HCl (Vancomycin 100 Mg/1 Ml Oral Syringe) 125 mg PO Q6H TONY Vancomycin HCl (Vancomycin 125 Mg Capsule) 125 mg PO QID TONY Last Admin: 12/26/24 08:17 Dose: 125 mg Allergies No Known Allergies Allergy (Verified 12/19/24 09:32) Home Medications blood sugar diagnostic (OneTouch Verio test strips) #100 ea 01/27/24 [Rx Confirmed 12/19/24] blood-glucose meter (OneTouch Verio Flex Meter) #1 ea 01/27/24 [Rx Confirmed 12/19/24] lancets #100 ea 01/27/24 [Rx Confirmed 12/19/24] albuterol sulfate 90 mcg/actuation aerosol inhaler (Ventolin HFA) 2 puff inhalation QID PRN shortness of breath or wheezing #6.7 grams 09/26/24 [Rx Confirmed 12/19/24] apixaban 5 mg tablet (Eliquis) 5 mg PO BID #60 tabs 09/26/24 [Rx Confirmed 12/19/24] atorvastatin 20 mg tablet 20 mg PO BEDTIME #30 tabs 09/26/24 [Rx Confirmed 12/20/24] mometasone-formoterol HFA 100 mcg-5 mcg/actuation aerosol inhaler (Dulera) 2 puff inhalation BID #13 grams 09/26/24 [Rx Confirmed 12/19/24] allopurinol 300 mg tablet 300 mg PO QPM 12/20/24 [History Confirmed 12/20/24] diltiazem HCl 300 mg capsule,24 hr,extended release 300 mg PO QAM 12/20/24 [History Confirmed 12/20/24] levothyroxine 75 mcg capsule 75 mcg PO QAM 12/20/24 [History Confirmed 12/20/24] lisinopril 20 mg tablet 20 mg PO QAM 12/20/24 [History Confirmed 12/20/24] metformin 500 mg tablet 500 mg PO .NOON 12/20/24 [History Confirmed 12/20/24] montelukast 10 mg tablet (Singulair) 10 mg PO .NOON 12/20/24 [History Confirmed 12/20/24] multivitamin 1 tab PO QAM 12/20/24 [History Confirmed 12/20/24] Discharge Plan Discharge Patient Disposition: Xfer Other Condition: Stable Prescriptions: New vancomycin 125 mg Capsule 125 mg PO QID 9 Days Qty: 36 0RF metoprolol succinate 25 mg Tablet Extended Release 24 Hr 37.5 mg PO DAILY Qty: 60 0RF Continued albuterol sulfate [Ventolin HFA] 90 mcg/actuation HFA aerosol inhaler 2 puff inhalation QID PRN (Reason: shortness of breath or wheezing) Qty: 6.7 11RF Eliquis 5 mg tablet 5 mg PO BID Qty: 60 11RF atorvastatin 20 mg tablet 20 mg PO BEDTIME Qty: 30 11RF Dulera 100-5 mcg/actuation HFA aerosol inhaler 2 puff inhalation BID Qty: 13 11RF (DME) OneTouch Verio test strips Strip See Rx Instructions .Route Qty: 100 2RF Rx Instructions: 3 times daily (DME) lancets Misc See Rx Instructions .Route Qty: 100 3RF Rx Instructions: 3 times daily (DME) blood-glucose meter [OneTouch Verio Flex meter] Misc See Rx Instructions .Route Qty: 1 0RF Rx Instructions: As directed metformin 500 mg tablet 500 mg PO .NOON lisinopril 20 mg tablet 20 mg PO QAM diltiazem HCl 300 mg capsule,extended release 24 hr 300 mg PO QAM montelukast [Singulair] 10 mg tablet 10 mg PO .NOON allopurinol 300 mg tablet 300 mg PO QPM levothyroxine 75 mcg capsule 75 mcg PO QAM multivitamin Tablet 1 tab PO QAM Other Ambulatory Orders: Complete Blood Count w/Auto (Routine) Timeframe: 1 Week Location: Determined by Patient Ordered By: Ada Bond Comprehensive Metabolic Panel (Routine) Timeframe: 1 Week Facility: [facility] - Location: Lab - Main Lab Ordered By: Ada Bond Referrals: Butch Love MD [Physician, General Surgery] - 7-10 days Carlos Aguilar MD [Physician, Cardiology] - 2 weeks Sudheer Ivy NP [Primary Care Provider, Family Practice] - 4-7 days Discharge Diet: GI Soft Discharge Activity: Resume usual activity Patient Instructions: Acute Wound Care (DC), Post Anesthesia Care Transfer Attestations Time Spent in Transfer Care: greater than 30 min Quality Metrics Clinical Quality Measures [ No reported AMI, CVA or VTE this stay] Coding Level of Care Code 87514 Total time (in minutes) for Discharge: 65 Diagnoses Pancreatitis K85.90 Severe acute pancreatitis K85.90
--- NOTE | 2024-12-27 16:23 | P.PN_ITS ---
Subjective 2 Subjective: Infectious disease progress note. CT yesterday showed changes consistent with progressive pancreatitis. No to abscess or necrosis was noted. However there is increasing peripancreatic edema. Today also white count going up to 23,000, alkaline phosphatase trending up to 164. Blood culture taken yesterday so far negative at 24 hours. Medications: Reviewed: Yes Vitals/I&O/Wt Last Vital Signs Temp 98.0 F 12/27/24 12:00 Pulse 85 12/27/24 12:00 Resp 16 12/27/24 12:00 BP 145/72 12/27/24 12:00 Pulse Ox 91 12/27/24 12:00 O2 Del Method Room Air 12/27/24 12:00 O2 Flow Rate 2 12/24/24 20:20 12/27/24 12/27/24 12/27/24 06:59 14:59 22:59 Intake Total 460 / 2040.000 570 / 570 Balance 460 / 2040.000 570 / 570 Physical Exam 2 Narrative: General: No acute distress, AO x3 HEENT: PERRLA, pupils bilaterally equal and reactive, pallors not present Chest: Normal vesicular breath sounds, no added sounds, equal good air entry bilaterally CVS: S1-S2 regular, no murmurs, no tachycardia, no gallops, no rubs Abdomen: Soft, nontender, no organomegaly, bowel sounds present Neuro: No focal deficits, no facial deformity, AO x3, power 5/5 in all limbs Data 12/27/24 06:14 12/27/24 06:14 Micro: Microbiology 12/26/24 13:41 Blood Culture - Preliminary Blood NEGATIVE TO DATE 12/26/24 13:35 Blood Culture - Preliminary Blood NEGATIVE TO DATE A&P Assessment and plan (1) C. difficile diarrhea: (2) Pancreatitis: (3) Persistent fever: Plan continue zosyn for now Add iv vancomycin for enterococcal coverage given temp spike to 101.1F today Change oral vanc to oral dificid due to lower recurrence risk Obtain blood cultures now Resp panel to assess for acute viral illness as potentially contributing to fever CT Chest abdomen and pelvis w/contrast to assess for pancreatic nerosis, abscess, reactive effusions. Additionally CT will assess for C diff colitis Unlikely UTI to be cause of persisting symptoms as patient on adequate coverage and lack of urinary symptoms , probably E.coli + cx to be asymptomatic bacteriuria will follow with results of above testing December 27, 2024 Agree with transferring patient for GI evaluation for potential ERCP. Tmax 101.1 Fahrenheit overnight with increasing white blood cell count at 23,[address] chest abdomen and pelvis yesterday without any signs of pancreatic necrosis or abscess, however shows progression of acute pancreatitis with increasing peripancreatic edema and soft tissue stranding. Pancreas was diffusely enhancing. Can continue Zosyn and vancomycin for now while pending blood cultures, however likely that persistent source is the most likely explanation for persistent fever and leukocytosis. PDMP PDMP Reviewed: Not Reviewed Attestations 2 Medical Necessity Statement*: Per admitting Coding Level of Care Code [facility] Diagnoses C. difficile diarrhea A04.72 Pancreatitis K85.90 Persistent fever R50.9
--- NOTE | 2024-12-27 17:06 | P.PN_ITS ---
Subjective 2 Subjective: Seen today White count elevating to 23.88. CT abdomen pelvis performed on 12/26 showed worsening acute pancreatitis. Patient continues to have watery bowel movements. Vitals/I&O/Wt Last Vital Signs Temp 98.3 F 12/27/24 16:00 Pulse 88 12/27/24 16:00 Resp 15 12/27/24 16:00 BP 147/89 12/27/24 16:00 Pulse Ox 92 12/27/24 16:00 O2 Del Method Room Air 12/27/24 16:00 O2 Flow Rate 2 12/24/24 20:20 12/27/24 12/27/24 12/27/24 06:59 14:59 22:59 Intake Total 460 / 2040.000 570 / 570 Balance 460 / 2040.000 570 / 570 Physical Exam 2 Narrative: Sitting up in chair. Const: COMMON NORMALS: patient oriented x3 and alert GENERAL APPEARANCE: c ooperative ORIENTATION/CONSCIOUSNESS: Yes awake HENMT: COMMON NORMALS: oropharynx normal Resp: COMMON NORMALS: normal respiratory effort and clear to auscultation bilaterally AUSCULTATION: clear to auscultation bilaterally Cardio: COMMON NORMALS: regular rhythm, S1 normal heart sound present, S2 normal heart sound present and No murmurs present (Cardio) RATE: tachycardic RHYTHM: regular rhythm HEART SOUNDS: S1 normal heart sound present and S2 normal heart sound present GI: COMMON NORMALS: Soft to palpation PALPATION: Yes Soft to palpation, No Tenderness to palpation present (GI) and Yes Other GI palpation findings present (improved abdominal exam) Extremity: COMMON NORMALS: no joint enlargement GENERAL: Yes edema (Trace) Neuro: COMMON NORMALS: patient oriented x3 and moves all extremities S ENSORIUM/ORIENTATION: Yes alert Skin: COMMON NORMALS: no rashes or lesions noted GENERAL SKIN EXAM: no rashes or lesions noted Data 12/27/24 06:14 12/27/24 06:14 Micro: Microbiology 12/26/24 13:41 Blood Culture - Preliminary Blood NEGATIVE TO DATE 12/26/24 13:35 Blood Culture - Preliminary Blood NEGATIVE TO DATE A&P Assessment and plan (1) Pancreatitis: Improvement has slowed somewhat, further improvement in leukocytosis on review of CBC, however, poor oral intake, additionally dry heaving, nausea today. Some vomiting. Continue Zofran as needed. Add Reglan. Holding off on advancement of diet for now, agree with surgery continue full liquid today, consider soft diet tomorrow. If improving and able to advance, possibly could discharge tomorrow. She does state that she may not have a caregiver to receive her tomorrow. Discussed with high risk case manager, will follow-up with her. She is considering another option who may help her get settled at home upon return. Reviewed PT assessment, with recommended continued home exercise. Repeat CBC, chemistry. Reviewed intake and output, chemistry. Reviewed surgery note. Discussed with nursing, high risk case manager. 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 Reviewed chemistry, T. bili further down to 1.2. Alk phos was down to 128. Upon further evaluation, general surgery was comfortable with her admission here with further consideration of early cholecystectomy versus delayed cholecystectomy with follow-up after recovery from pancreatitis. Abdominal pain overall has improved. Complicated by SVT, so far without recurrence. Surgery further reevaluated with regards to consideration of cholecystectomy today, with recurrent indicators of cholecystitis, mild pericholecystic edema on imaging, improving biliary parameters, issues with tachyarrhythmia, planning and status tube pursue delayed cholecystectomy after resolution of of pancreatitis. DC IVF. Continue acetaminophen as needed for pain. IV morphine as needed for severe breakthrough. (2) SVT (supraventricular tachycardia): Give additional potassium replacement, unreviewed 3.5. Requesting K phuonger. Reviewed cardiology note. Reviewed cardiology note, discussed w instrumentation and controls technician, appreciate consultation. Agree with addition of metoprolol which they may further adjust today, and continuing Cardizem. Monitor for risk of hypotension with combination of Cardizem and metoprolol. Continuous telemetry monitoring. (3) Cholecystitis: Reviewed surgery note. Cont Zosyn for now. Full liquids for now, possible advancement to soft tomorrow and possible discharge. Discussed with surgery and with her on further surgery reevaluation, will be planning for delayed outpatient cholecystectomy after improvement from acute pancreatitis. Trial of advancement of diet Reviewed MRCP, cholelithiasis with mild pericholecystic edema. Mild pericholecystic changes on CT reassessment. As above. (4) UTI (urinary tract infection): Reviewed urine culture, positive for E. coli, resistant to ampicillin. Continue treatment with Zosyn. Plan Atrial fibrillation with RVR: With surgery deferred at this time, may be able to resume anticoagulation, possibly with Lovenox for now. She usually takes Cardizem which has been. Monitor on telemetry. MARYCARMEN: Does not wear CPAP Hypothyroidism: Levothyroxine DM2: Currently NPO. Hypoglycemia protocol. COPD: Not in exacerbation, DuoNebs as needed. Budesonide. Osteoarthritis RA 12/24/2024 continue vanc + zosyn for empiric coverage continue levothyroxine, diltiazem, metoprolol succ continue full liquid, hold off on going to GI soft diet stool sample positive for c.diff continue oral vancomycin dc home once able to tolerate gi soft diet 12/25/2024 pt positive for c.diff continue oral vanc x 10 days wbc 19K stop zosyn at 7 days. last dose 12/26 cotninue to monitor electrolytes advance diet to gi soft gen surgery following possible dc home in 24-48 hours once pt able to tolerate gi soft diet diarrhea hasnt improved yet. 12/26/2024 wbc count 19.55K this am continues to have diarrhea fever overnight 100.5 consult ID await recommendations check ct chest abd pelvis continue zosyn continue GI soft diet, requires continued hospitalization at this time, fever of unknown origin further mgmt decisions to be made after discussion with ID and reviewing imaging. switch from vanc to dificid 12/27/2024 Discussed at length with ID and general surgery. Decision made to transfer patient to [facility] for GI consultation potentially needing an ERCP going forward. Continue Dificid for C. difficile diarrhea Overnight temperature 101.3. CT chest abdomen pelvis shows worsening pancreatitis. 1. Progression of acute pancreatitis since 12/21/2024. 2. Increasing peripancreatic edema, soft tissue stranding and fluid. No formed fluid collections to suggest a pseudocyst or abscess. 3. Pancreas enhances diffusely. No hemorrhagic pancreatitis. 4. Contracted gallbladder. Minimal gallbladder wall thickening. 5. No intrahepatic duct dilatation. Common bile duct is normal. 6. Bibasilar atelectasis. Atelectasis and opacification of the LEFT lung base has improved since 12/21/2024. 7. Very small LEFT pleural effusion is unchanged. 8. Small amount of free fluid in the pelvis has decreased since 12/21/2024. 9. Minimal LEFT retroareolar soft tissue thickening. Recommend diagnostic mammography as an outpatient. continue GI soft diet continue iv vanco and zosyn Pt has been accepted for transfer to [facility] awaiting bed at this time PDMP PDMP Reviewed: Not Reviewed Attestations 2 Medical Necessity Statement*: awaiting transfer to [facility] Coding Level of Care Code Acute Code for [facility] Other Coding Information Focused coding review requested Diagnoses Pancreatitis K85.90 SVT (supraventricular tachycardia) I47.10 Cholecystitis K81.9 UTI (urinary tract infection) N39.0
[2024-12-27 17:31] LABS: Glucose Point of Care 137 mg/dL (70-110)
[2024-12-27 20:24] LABS: Glucose Point of Care 124 mg/dL (70-110)
[2024-12-28] VITALS (8 sets, daily range): BP systolic 128–162; BP diastolic 65–90; PULSE 72–93; RESP 17–20; TEMP 37.1–37.3; O2SAT 90–94
[2024-12-28] MEDS: piperacillin-tazobactam 3.375 GM in sodium chloride 0.9% (plus) 50 ML IV ×3 (01:11→16:59)
[2024-12-28] MEDS: ondansetron 2 mg/ML SDV 2 mL 4 MG IVP (02:51)
[2024-12-28 04:32] LABS: Vancomycin Trough 21.5 ug/mL (10-15)
[2024-12-28] MEDS: METOCLOPRAMIDE HCL 10 MG/10 ML UDC 5 MG PO ×4 (05:29→20:43)
[2024-12-28] MEDS: levothyroxine 75 mcg Tablet PO (05:29)
[2024-12-28] MEDS: dilTIAZem ER (24HR) 300 mg Capsule PO (05:29)
[2024-12-28 06:22] LABS: Glucose Point of Care 152 mg/dL (70-110)
--- NOTE | 2024-12-28 07:05 | P.PN_ITS ---
Subjective 2 Subjective: Somehow more nauseous this morning. Denies abdominal pain. Case has been discussed with also institution and patient is pending transfer for GI evaluation. Vitals/I&O/Wt Last Vital Signs Temp 98.9 F 12/28/24 03:53 Pulse 90 12/28/24 03:53 Resp 18 12/28/24 03:53 BP 162/82 12/28/24 03:53 Pulse Ox 91 12/28/24 03:53 O2 Del Method Room Air 12/28/24 03:53 O2 Flow Rate 9 12/27/24 20:46 12/27/24 12/28/24 12/28/24 22:59 06:59 14:59 Intake Total 400 / 970 330 / 1300 Balance 400 / 970 330 / 1300 Physical Exam 2 GI: OTHER: Abdomen is soft, nontender, minimally distended. Data 12/27/24 06:14 12/27/24 06:14 Micro: Microbiology 12/26/24 13:41 Blood Culture - Preliminary Blood NEGATIVE TO DATE 12/26/24 13:35 Blood Culture - Preliminary Blood NEGATIVE TO DATE A&P Assessment and plan (1) Pancreatitis: (2) Severe acute pancreatitis: Plan Patient admitted with acute moderate to severe pancreatitis of possible biliary origin, has had a protracted course. The CT scan of the abdomen pelvis shows evidence of worsening pancreatitis. No significant inflammation at the level of the gallbladder noted. Patient is planned to be transferred to higher level of care for GI evaluation for possible endoluminal stenting of the pancreatic duct. Once acute pancreatitis episode resolves patient will require a cooldown period of 4 to 6 weeks and after that she can be scheduled for a laparoscopic cholecystectomy. She can follow-up with us as outpatient for that. No additional interventions planned from the surgical standpoint during this hospital admission PDMP PDMP Reviewed: Not Reviewed Attestations 2 Medical Necessity Statement*: Per medical Coding Level of Care Code 36359 Diagnoses Pancreatitis K85.90 Severe acute pancreatitis K85.90
[2024-12-28] MEDS: budesonide 0.5 mg/2 mL Neb 0.25 MG INHALATION (07:38)
[2024-12-28] MEDS: levalbuterol 0.63 mg/3 mL Neb INHALATION (07:39)
[2024-12-28] MEDS: fidaxomicin 200 mg Tablet PO ×2 (08:17→16:58)
[2024-12-28] MEDS: apixaban 5 mg Tablet PO ×2 (08:17→16:58)
[2024-12-28] MEDS: montelukast sodium 10 mg Tablet PO (08:17)
[2024-12-28] MEDS: metoprolol succinate ER (24 HR) 25 mg Tablet 37.5 MG PO (08:17)
[2024-12-28] MEDS: acetaminophen 325 mg Tablet 650 MG PO ×2 (08:22→20:43)
[2024-12-28 09:24] LABS: Basophils # 0.1 10^3/uL (0.0-0.1); Basophils % 0.3 %; Eosinophils # 0.3 10^3/uL (0.0-0.8); Eosinophils % 1.2 %; Hematocrit 29.8 % (36-47); Lymphocytes # 1.4 10^3/uL (0.8-4.8); Lymphocytes % 6.2 %; Mean Corpuscular HGB Conc 33.2 g/dL (30-55); Mean Corpuscular Hemoglobin 29.5 pg (27-33); Mean Corpuscular Volume 88.7 fl (85-98); Monocytes % 4.6 %; Neutrophils # 19.17 10^3/uL (1.8-7.7); Neutrophils % 85.5 %; Nucleated Red Blood Cells % 0 %; Platelet Count 399 10^3/cmm (157-399); Red Blood Count 3.36 10^6/uL (3.85-5.65); Red Cell Distribution Width 14.3 % (12.1-15.1); White Blood Count 22.39 10^3/uL (3.29-11.43)
[2024-12-28 09:36] LABS: Alanine Aminotransferase 39 U/L (0-33); Albumin Level 2.8 g/dL (3.5-5.2); Alkaline Phosphatase 171 U/L (35-105); Anion Gap 16.3 (5-19); Aspartate Amino Transferase 25 U/L (0-32); Blood Urea Nitrogen 8 mg/dL (8-23); Carbon Dioxide 23 mmol/L (22-29); Chloride 100 mmol/L (98-107); Creatinine Clr Calc Pharmacy 89.2258; Globulin 3.2 g/dL (1.3-4.6); Glomerular Filtration Rate 71.1 mL/min (90-130); Glucose 173 mg/dL (65-115); Lipase 65 U/L (13-60); Osmolality Calculated 284 mOsm/kg (285-295); Potassium 3.3 mmol/L (3.5-5.1); Sodium 136 mmol/L (136-145); Total Bilirubin 0.4 mg/dL (0.15-1.2)
[2024-12-28] MEDS: pantoprazole 40 mg SDV IVP (11:27)
[2024-12-28] MEDS: vancomycin 1,500 MG/300 ML PIGGYBACK 200 MG IV (11:27)
[2024-12-28 11:32] LABS: Glucose Point of Care 125 mg/dL (70-110)
--- NOTE | 2024-12-28 13:06 | PC.SOCIAL ---
IMM Update pg 2 of IMM Updated and reviewed w/ patient. Copy provided and copy dated, initialed and placed in chart.
--- NOTE | 2024-12-28 13:30 | P.PN_ITS ---
Subjective 2 Subjective: Patient complains of increased nausea this morning. White count 22,000. Has had 3 bowel movements overnight. Potassium 3.3 this morning. Awaiting transfer to [facility]. Vitals/I&O/Wt Last Vital Signs Temp 98.9 F 12/28/24 12:00 Pulse 77 12/28/24 12:00 Resp 18 12/28/24 12:00 BP 128/65 12/28/24 12:00 Pulse Ox 90 12/28/24 12:00 O2 Del Method Room Air 12/28/24 12:00 O2 Flow Rate 9 12/27/24 20:46 12/27/24 12/28/24 12/28/24 22:59 06:59 14:59 Intake Total 400 / 970 330 / 1300 773.333 / 773.333 Balance 400 / 970 330 / 1300 773.333 / 773.333 Physical Exam 2 Narrative: Sitting up in chair. Const: COMMON NORMALS: patient oriented x3 and alert GENERAL APPEARANCE: c ooperative ORIENTATION/CONSCIOUSNESS: Yes awake Resp: COMMON NORMALS: normal respiratory effort and clear to auscultation bilaterally AUSCULTATION: clear to auscultation bilaterally Cardio: COMMON NORMALS: regular rhythm, S1 normal heart sound present and S2 normal heart sound present RHYTHM: regular rhythm HEART SOUNDS: S1 normal heart sound present and S2 normal heart sound present GI: COMMON NORMALS: Soft to palpation PALPATION: Yes Soft to palpation, No Tenderness to palpation present (GI) and Yes Other GI palpation findings present (improved abdominal exam) Extremity: GENERAL: Yes edema (Trace) Neuro: COMMON NORMALS: patient oriented x3 and moves all extremities S ENSORIUM/ORIENTATION: Yes alert Data 12/28/24 09:06 12/28/24 09:06 Micro: Microbiology 12/26/24 13:41 Blood Culture - Preliminary Blood NEGATIVE TO DATE 12/26/24 13:35 Blood Culture - Preliminary Blood NEGATIVE TO DATE A&P Assessment and plan (1) Pancreatitis: Improvement has slowed somewhat, further improvement in leukocytosis on review of CBC, however, poor oral intake, additionally dry heaving, nausea today. Some vomiting. Continue Zofran as needed. Add Reglan. Holding off on advancement of diet for now, agree with surgery continue full liquid today, consider soft diet tomorrow. If improving and able to advance, possibly could discharge tomorrow. She does state that she may not have a caregiver to receive her tomorrow. Discussed with telephonic nurse case manager, will follow-up with her. She is considering another option who may help her get settled at home upon return. Reviewed PT assessment, with recommended continued home exercise. Repeat CBC, chemistry. Reviewed intake and output, chemistry. Reviewed surgery note. Discussed with nursing, telephonic nurse case manager. 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 Reviewed chemistry, T. bili further down to 1.2. Alk phos was down to 128. Upon further evaluation, general surgery was comfortable with her admission here with further consideration of early cholecystectomy versus delayed cholecystectomy with follow-up after recovery from pancreatitis. Abdominal pain overall has improved. Complicated by SVT, so far without recurrence. Surgery further reevaluated with regards to consideration of cholecystectomy today, with recurrent indicators of cholecystitis, mild pericholecystic edema on imaging, improving biliary parameters, issues with tachyarrhythmia, planning and status tube pursue delayed cholecystectomy after resolution of of pancreatitis. DC IVF. Continue acetaminophen as needed for pain. IV morphine as needed for severe breakthrough. (2) SVT (supraventricular tachycardia): Give additional potassium replacement, unreviewed 3.5. Requesting Pedro steward. Reviewed cardiology note. Reviewed cardiology note, discussed w radiation safety officer, appreciate consultation. Agree with addition of metoprolol which they may further adjust today, and continuing Cardizem. Monitor for risk of hypotension with combination of Cardizem and metoprolol. Continuous telemetry monitoring. (3) Cholecystitis: Reviewed surgery note. Cont Zosyn for now. Full liquids for now, possible advancement to soft tomorrow and possible discharge. Discussed with surgery and with her on further surgery reevaluation, will be planning for delayed outpatient cholecystectomy after improvement from acute pancreatitis. Trial of advancement of diet Reviewed MRCP, cholelithiasis with mild pericholecystic edema. Mild pericholecystic changes on CT reassessment. As above. (4) UTI (urinary tract infection): Reviewed urine culture, positive for E. coli, resistant to ampicillin. Continue treatment with Zosyn. Plan Atrial fibrillation with RVR: With surgery deferred at this time, may be able to resume anticoagulation, possibly with Lovenox for now. She usually takes Cardizem which has been. Monitor on telemetry. MARYCARMEN: Does not wear CPAP Hypothyroidism: Levothyroxine DM2: Currently NPO. Hypoglycemia protocol. COPD: Not in exacerbation, DuoNebs as needed. Budesonide. Osteoarthritis RA 12/24/2024 continue vanc + zosyn for empiric coverage continue levothyroxine, diltiazem, metoprolol succ continue full liquid, hold off on going to GI soft diet stool sample positive for c.diff continue oral vancomycin dc home once able to tolerate gi soft diet 12/25/2024 pt positive for c.diff continue oral vanc x 10 days wbc 19K stop zosyn at 7 days. last dose 12/26 cotninue to monitor electrolytes advance diet to gi soft gen surgery following possible dc home in 24-48 hours once pt able to tolerate gi soft diet diarrhea hasnt improved yet. 12/26/2024 wbc count 19.55K this am continues to have diarrhea fever overnight 100.5 consult ID await recommendations check ct chest abd pelvis continue zosyn continue GI soft diet, requires continued hospitalization at this time, fever of unknown origin further mgmt decisions to be made after discussion with ID and reviewing imaging. switch from vanc to dificid 12/27/2024 Discussed at length with ID and general surgery. Decision made to transfer patient to [facility] for GI consultation potentially needing an ERCP going forward. Continue Dificid for C. difficile diarrhea Overnight temperature 101.3. CT chest abdomen pelvis shows worsening pancreatitis. 1. Progression of acute pancreatitis since 12/21/2024. 2. Increasing peripancreatic edema, soft tissue stranding and fluid. No formed fluid collections to suggest a pseudocyst or abscess. 3. Pancreas enhances diffusely. No hemorrhagic pancreatitis. 4. Contracted gallbladder. Minimal gallbladder wall thickening. 5. No intrahepatic duct dilatation. Common bile duct is normal. 6. Bibasilar atelectasis. Atelectasis and opacification of the LEFT lung base has improved since 12/21/2024. 7. Very small LEFT pleural effusion is unchanged. 8. Small amount of free fluid in the pelvis has decreased since 12/21/2024. 9. Minimal LEFT retroareolar soft tissue thickening. Recommend diagnostic mammography as an outpatient. continue GI soft diet continue iv vanco and zosyn Pt has been accepted for transfer to [facility] awaiting bed at this time 12/28/2024 Continue Dificid for C. difficile diarrhea Afebrile overnight De-escalate diet to clear liquids. Stop GI soft diet Continue IV Vanco and Zosyn. Pt has been accepted for transfer to [facility] awaiting bed at this time discussed with ID and gen surg PDMP PDMP Reviewed: Not Reviewed Attestations 2 Medical Necessity Statement*: awaiting transfer to [facility] Diagnoses Pancreatitis K85.90 SVT (supraventricular tachycardia) I47.10 Cholecystitis K81.9 UTI (urinary tract infection) N39.0
[2024-12-28] MEDS: potassium chloride ER 20 mEq Tablet 40 MEQ PO (13:59)
[2024-12-28 16:23] LABS: Glucose Point of Care 128 mg/dL (70-110)
[2024-12-28 20:26] LABS: Glucose Point of Care 116 mg/dL (70-110)
[2024-12-29] VITALS (9 sets, daily range): BP systolic 146–170; BP diastolic 80–91; PULSE 81–94; RESP 15–19; TEMP 36.4–37; O2SAT 90–94
[2024-12-29] MEDS: vancomycin 1,500 MG/300 ML PIGGYBACK 200 MG IV ×3 (00:27→22:16)
[2024-12-29] MEDS: piperacillin-tazobactam 3.375 GM in sodium chloride 0.9% (plus) 50 ML IV ×3 (02:02→17:57)
[2024-12-29] MEDS: lidocaine 2% viscous 15 ML, aluminum-mag hydrox-simethicon 30 ML, sucralfate oral liq 1 GM PO (02:51)
[2024-12-29] MEDS: dilTIAZem ER (24HR) 300 mg Capsule PO (05:11)
[2024-12-29] MEDS: levothyroxine 75 mcg Tablet PO (05:11)
[2024-12-29] MEDS: METOCLOPRAMIDE HCL 10 MG/10 ML UDC 5 MG PO ×4 (05:11→22:15)
[2024-12-29 05:54] LABS: Amylase 40 U/L (21-101)
[2024-12-29 06:05] LABS: Basophils # 0.1 10^3/uL (0.0-0.1); Basophils % 0.3 %; Eosinophils # 0.3 10^3/uL (0.0-0.8); Eosinophils % 1.5 %; Hematocrit 34.3 % (36-47); Lymphocytes # 1.9 10^3/uL (0.8-4.8); Lymphocytes % 9.1 %; Mean Corpuscular HGB Conc 32.9 g/dL (30-55); Mean Corpuscular Hemoglobin 29.6 pg (27-33); Mean Corpuscular Volume 89.8 fl (85-98); Mean Platelet Volume 10.1 fL (7.4-10.4); Monocytes # 1.1 10^3/uL (0.2-0.9); Monocytes % 5.2 %; Neutrophils # 16.46 10^3/uL (1.8-7.7); Neutrophils % 81.5 %; Nucleated Red Blood Cells % 0 %; Platelet Count 489 10^3/cmm (157-399); Red Blood Count 3.82 10^6/uL (3.85-5.65); Red Cell Distribution Width 14.7 % (12.1-15.1); White Blood Count 20.22 10^3/uL (3.29-11.43)
[2024-12-29 06:28] LABS: Glucose Point of Care 116 mg/dL (70-110)
[2024-12-29 06:30] LABS: Alanine Aminotransferase 36 U/L (0-33); Alkaline Phosphatase 189 U/L (35-105); Anion Gap 16.8 (5-19); Aspartate Amino Transferase 23 U/L (0-32); Blood Urea Nitrogen 7 mg/dL (8-23); Calcium 8.4 mg/dL (8.5-10.5); Carbon Dioxide 23 mmol/L (22-29); Chloride 101 mmol/L (98-107); Creatinine Clr Calc Pharmacy 89.2258; Globulin 3.7 g/dL (1.3-4.6); Glucose 114 mg/dL (65-115); Osmolality Calculated 283 mOsm/kg (285-295); Potassium 3.8 mmol/L (3.5-5.1); Sodium 137 mmol/L (136-145); Total Bilirubin 0.6 mg/dL (0.15-1.2); Total Protein 6.7 g/dL (6.6-8.7)
--- NOTE | 2024-12-29 06:50 | P.PN_ITS ---
Subjective 2 Subjective: No significant changes over the last 24 hours. tolerating liquid diet Vitals/I&O/Wt Last Vital Signs Temp 98.3 F 12/29/24 07:47 Pulse 91 12/29/24 07:47 Resp 16 12/29/24 07:47 BP 157/85 12/29/24 07:47 Pulse Ox 93 12/29/24 07:47 O2 Del Method Room Air 12/29/24 07:47 O2 Flow Rate 9 12/27/24 20:46 12/28/24 12/29/24 12/29/24 22:59 06:59 14:59 Intake Total 240 / 1310.000 400 / 1710.000 240 / 240 Balance 240 / 1310.000 400 / 1710.000 240 / 240 Physical Exam 2 Narrative: Sitting up in chair. Const: COMMON NORMALS: patient oriented x3 and alert GENERAL APPEARANCE: c ooperative ORIENTATION/CONSCIOUSNESS: Yes awake Resp: COMMON NORMALS: normal respiratory effort and clear to auscultation bilaterally AUSCULTATION: clear to auscultation bilaterally Cardio: COMMON NORMALS: regular rhythm, S1 normal heart sound present and S2 normal heart sound present RHYTHM: regular rhythm HEART SOUNDS: S1 normal heart sound present and S2 normal heart sound present GI: COMMON NORMALS: Soft to palpation PALPATION: Yes Soft to palpation, No Tenderness to palpation present (GI) and Yes Other GI palpation findings present (improved abdominal exam) Extremity: GENERAL: Yes edema (Trace) Neuro: COMMON NORMALS: patient oriented x3 and moves all extremities S ENSORIUM/ORIENTATION: Yes alert Data 12/29/24 05:31 12/29/24 05:31 A&P Assessment and plan (1) Pancreatitis: Improvement has slowed somewhat, further improvement in leukocytosis on review of CBC, however, poor oral intake, additionally dry heaving, nausea today. Some vomiting. Continue Zofran as needed. Add Reglan. Holding off on advancement of diet for now, agree with surgery continue full liquid today, consider soft diet tomorrow. If improving and able to advance, possibly could discharge tomorrow. She does state that she may not have a caregiver to receive her tomorrow. Discussed with rehabilitation caseworker, will follow-up with her. She is considering another option who may help her get settled at home upon return. Reviewed PT assessment, with recommended continued home exercise. Repeat CBC, chemistry. Reviewed intake and output, chemistry. Reviewed surgery note. Discussed with nursing, rehabilitation caseworker. 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 Reviewed chemistry, T. bili further down to 1.2. Alk phos was down to 128. Upon further evaluation, general surgery was comfortable with her admission here with further consideration of early cholecystectomy versus delayed cholecystectomy with follow-up after recovery from pancreatitis. Abdominal pain overall has improved. Complicated by SVT, so far without recurrence. Surgery further reevaluated with regards to consideration of cholecystectomy today, with recurrent indicators of cholecystitis, mild pericholecystic edema on imaging, improving biliary parameters, issues with tachyarrhythmia, planning and status tube pursue delayed cholecystectomy after resolution of of pancreatitis. DC IVF. Continue acetaminophen as needed for pain. IV morphine as needed for severe breakthrough. (2) SVT (supraventricular tachycardia): Give additional potassium replacement, unreviewed 3.5. Requesting Pedro steward. Reviewed cardiology note. Reviewed cardiology note, discussed w pattern attendant, appreciate consultation. Agree with addition of metoprolol which they may further adjust today, and continuing Cardizem. Monitor for risk of hypotension with combination of Cardizem and metoprolol. Continuous telemetry monitoring. (3) Cholecystitis: Reviewed surgery note. Cont Zosyn for now. Full liquids for now, possible advancement to soft tomorrow and possible discharge. Discussed with surgery and with her on further surgery reevaluation, will be planning for delayed outpatient cholecystectomy after improvement from acute pancreatitis. Trial of advancement of diet Reviewed MRCP, cholelithiasis with mild pericholecystic edema. Mild pericholecystic changes on CT reassessment. As above. (4) UTI (urinary tract infection): Reviewed urine culture, positive for E. coli, resistant to ampicillin. Continue treatment with Zosyn. Plan Atrial fibrillation with RVR: With surgery deferred at this time, may be able to resume anticoagulation, possibly with Lovenox for now. She usually takes Cardizem which has been. Monitor on telemetry. MARYCARMEN: Does not wear CPAP Hypothyroidism: Levothyroxine DM2: Currently NPO. Hypoglycemia protocol. COPD: Not in exacerbation, DuoNebs as needed. Budesonide. Osteoarthritis RA 12/24/2024 continue vanc + zosyn for empiric coverage continue levothyroxine, diltiazem, metoprolol succ continue full liquid, hold off on going to GI soft diet stool sample positive for c.diff continue oral vancomycin dc home once able to tolerate gi soft diet 12/25/2024 pt positive for c.diff continue oral vanc x 10 days wbc 19K stop zosyn at 7 days. last dose 12/26 cotninue to monitor electrolytes advance diet to gi soft gen surgery following possible dc home in 24-48 hours once pt able to tolerate gi soft diet diarrhea hasnt improved yet. 12/26/2024 wbc count 19.55K this am continues to have diarrhea fever overnight 100.5 consult ID await recommendations check ct chest abd pelvis continue zosyn continue GI soft diet, requires continued hospitalization at this time, fever of unknown origin further mgmt decisions to be made after discussion with ID and reviewing imaging. switch from vanc to dificid 12/27/2024 Discussed at length with ID and general surgery. Decision made to transfer patient to [facility] for GI consultation potentially needing an ERCP going forward. Continue Dificid for C. difficile diarrhea Overnight temperature 101.3. CT chest abdomen pelvis shows worsening pancreatitis. 1. Progression of acute pancreatitis since 12/21/2024. 2. Increasing peripancreatic edema, soft tissue stranding and fluid. No formed fluid collections to suggest a pseudocyst or abscess. 3. Pancreas enhances diffusely. No hemorrhagic pancreatitis. 4. Contracted gallbladder. Minimal gallbladder wall thickening. 5. No intrahepatic duct dilatation. Common bile duct is normal. 6. Bibasilar atelectasis. Atelectasis and opacification of the LEFT lung base has improved since 12/21/2024. 7. Very small LEFT pleural effusion is unchanged. 8. Small amount of free fluid in the pelvis has decreased since 12/21/2024. 9. Minimal LEFT retroareolar soft tissue thickening. Recommend diagnostic mammography as an outpatient. continue GI soft diet continue iv vanco and zosyn Pt has been accepted for transfer to [facility] awaiting bed at this time 12/28/2024 Continue Dificid for C. difficile diarrhea Afebrile overnight De-escalate diet to clear liquids. Stop GI soft diet Continue IV Vanco and Zosyn. Pt has been accepted for transfer to [facility] awaiting bed at this time discussed with ID and gen surg 12/29/2024 Continue Dificid for C. difficile diarrhea Afebrile overnight continue clear liquids awaiting bed at [facility] Continue IV Vanco and Zosyn. COntiniue Difficid PDMP PDMP Reviewed: Not Reviewed Attestations 2 Medical Necessity Statement*: awaiting transfer to [facility] Diagnoses Pancreatitis K85.90 SVT (supraventricular tachycardia) I47.10 Cholecystitis K81.9 UTI (urinary tract infection) N39.0
--- NOTE | 2024-12-29 07:08 | P.PN_ITS ---
Subjective 2 Subjective: No significant changes over the last 24 hours. Has been having a liquid diet tolerating with no nausea or vomiting. No abdominal pain she endorses having significant cough. Vitals/I&O/Wt Last Vital Signs Temp 98.3 F 12/29/24 04:00 Pulse 90 12/29/24 04:00 Resp 18 12/29/24 04:00 BP 153/90 12/29/24 04:00 Pulse Ox 91 12/29/24 04:00 O2 Del Method Room Air 12/29/24 04:00 O2 Flow Rate 9 12/27/24 20:46 12/28/24 12/29/24 12/29/24 22:59 06:59 14:59 Intake Total 240 / 1310.000 400 / 1710.000 Balance 240 / 1310.000 400 / 1710.000 Physical Exam 2 GI: OTHER: Abdominal examination is benign abdomen is soft nontender nondistended. Data 12/29/24 05:31 12/29/24 05:31 A&P Assessment and plan (1) Pancreatitis: Plan 69-year-old female with moderate to severe acute pancreatitis likely from biliary origin and also C. difficile colitis who has a persistently elevated white count. She is awaiting transfer for GI evaluation higher level of care as at this point there is no additional studies that we can offer in our institution and she may benefit from endoluminal evaluation. Patient will require a cholecystectomy once this acute episode completely subsides in about 4 to 6 weeks to prevent further episodes of pancreatitis. All imaging obtained during this hospital stay has been negative for acute cholecystitis with only mild pericholecystic changes. Patient has no abdominal pain on my examination today. PDMP PDMP Reviewed: Not Reviewed Attestations 2 Medical Necessity Statement*: Per medical Coding Level of Care Code Acute Code for [facility] Fwd Diagnoses Pancreatitis K85.90
[2024-12-29] MEDS: budesonide 0.5 mg/2 mL Neb 0.25 MG INHALATION ×2 (09:40→20:34)
[2024-12-29] MEDS: apixaban 5 mg Tablet PO ×2 (10:40→17:56)
[2024-12-29] MEDS: fidaxomicin 200 mg Tablet PO ×2 (10:41→17:56)
[2024-12-29] MEDS: montelukast sodium 10 mg Tablet PO (10:41)
[2024-12-29] MEDS: metoprolol succinate ER (24 HR) 25 mg Tablet 37.5 MG PO (10:41)
[2024-12-29] MEDS: pantoprazole 40 mg SDV IVP (11:17)
[2024-12-29 11:40] LABS: Glucose Point of Care 119 mg/dL (70-110)
[2024-12-29 16:34] LABS: Glucose Point of Care 108 mg/dL (70-110)
[2024-12-29 20:24] LABS: Glucose Point of Care 112 mg/dL (70-110)
[2024-12-29] MEDS: acetaminophen 325 mg Tablet 650 MG PO (22:16)
[2024-12-30] MEDS: piperacillin-tazobactam 3.375 GM in sodium chloride 0.9% (plus) 50 ML IV ×2 (02:13→12:43)
[2024-12-30 04:00] VITALS: BP 149/81; PULSE 83; RESP 18; TEMP 36.9; O2SAT 92
[2024-12-30] MEDS: levothyroxine 75 mcg Tablet PO (05:34)
[2024-12-30] MEDS: dilTIAZem ER (24HR) 300 mg Capsule PO (05:34)
[2024-12-30 05:45] LABS: Basophils # 0.1 10^3/uL (0.0-0.1); Basophils % 0.4 %; Eosinophils # 0.2 10^3/uL (0.0-0.8); Eosinophils % 1.4 %; Hematocrit 30.5 % (36-47); Lymphocytes # 1.4 10^3/uL (0.8-4.8); Lymphocytes % 8.6 %; Mean Corpuscular HGB Conc 32.5 g/dL (30-55); Mean Corpuscular Hemoglobin 29.1 pg (27-33); Mean Corpuscular Volume 89.7 fl (85-98); Monocytes # 0.9 10^3/uL (0.2-0.9); Monocytes % 5.7 %; Neutrophils # 12.96 10^3/uL (1.8-7.7); Neutrophils % 81.8 %; Nucleated Red Blood Cells % 0 %; Platelet Count 453 10^3/cmm (157-399); White Blood Count 15.85 10^3/uL (3.29-11.43)
[2024-12-30 06:05] LABS: Alanine Aminotransferase 28 U/L (0-33); Alkaline Phosphatase 157 U/L (35-105); Anion Gap 17.8 (5-19); Aspartate Amino Transferase 19 U/L (0-32); Blood Urea Nitrogen 8 mg/dL (8-23); Calcium 8.2 mg/dL (8.5-10.5); Carbon Dioxide 22 mmol/L (22-29); Chloride 102 mmol/L (98-107); Creatinine Clr Calc Pharmacy 89.2258; Globulin 2.5 g/dL (1.3-4.6); Glucose 106 mg/dL (65-115); Magnesium 1.8 mg/dL (1.7-2.3); Osmolality Calculated 285 mOsm/kg (285-295); Potassium 3.8 mmol/L (3.5-5.1); Sodium 138 mmol/L (136-145); Total Bilirubin 0.6 mg/dL (0.15-1.2); Total Protein 5.5 g/dL (6.6-8.7)
[2024-12-30 06:20] LABS: Glucose Point of Care 129 mg/dL (70-110)
[2024-12-30] MEDS: METOCLOPRAMIDE HCL 10 MG/10 ML UDC 5 MG PO (06:35)
[2024-12-30 07:51] VITALS: BP 157/78; PULSE 77; RESP 17; TEMP 37.1; O2SAT 94
--- NOTE | 2024-12-30 07:59 | P.PN_ITS ---
Subjective 2 Subjective: This a 69-year-old female admitted with moderate to severe acute pancreatitis likely from biliary origin. Has had a protracted hospital course complicated with C. difficile colitis and worsening pancreatitis. In the last 24 hours she has been doing better no significant nausea no significant abdominal pain still having some small amount of diarrhea. Vitals/I&O/Wt Last Vital Signs Temp 98.8 F 12/30/24 07:51 Pulse 77 12/30/24 07:51 Resp 17 12/30/24 07:51 BP 157/78 12/30/24 07:51 Pulse Ox 94 12/30/24 07:51 O2 Del Method Room Air 12/30/24 07:51 O2 Flow Rate 9 12/27/24 20:46 12/29/24 12/30/24 12/30/24 22:59 06:59 14:59 Intake Total 290 / 1120 350 / 1470 Balance 290 / 1120 350 / 1470 Physical Exam 2 GI: OTHER: Abdominal exam is benign abdomen soft nontender nondistended. Data 12/30/24 05:20 12/30/24 05:20 A&P Assessment and plan (1) Vomiting: (2) Pancreatitis: (3) Severe acute pancreatitis: Plan Overall patient appears to be clinically improving. No nausea no vomiting no abdominal pain. Her white count has trended down to 15 alk phos is also mildly trending down. Since patient pancreatitis has been worsening on imaging and her clinical progression was low patient was deemed a good candidate for transfer to higher level of care for GI evaluation, this is still pending at this time. From the general surgery standpoint no anticipation for the need of exploration during this hospital admission but patient will require a laparoscopic cholecystectomy in 6 to 8 weeks to prevent further episodes of pancreatitis in the future. Patient shows understanding. All other management per medical team. PDMP PDMP Reviewed: Not Reviewed Attestations 2 Medical Necessity Statement*: Per medical team Coding Level of Care Code Acute Code for [facility] Fwd Diagnoses Bilious vomiting with nausea R11.14 Vomiting type: bilious vomiting Nausea presence: with nausea Pancreatitis K85.90 Severe acute pancreatitis K85.90
[2024-12-30 08:00] VITALS: PULSE 87; RESP 16; O2SAT 94
[2024-12-30] MEDS: budesonide 0.5 mg/2 mL Neb 0.25 MG INHALATION (08:02)
[2024-12-30 08:10] VITALS: PULSE 80
[2024-12-30] MEDS: fidaxomicin 200 mg Tablet PO (09:05)
[2024-12-30] MEDS: metoprolol succinate ER (24 HR) 25 mg Tablet 37.5 MG PO (09:05)
[2024-12-30] MEDS: montelukast sodium 10 mg Tablet PO (09:05)
[2024-12-30] MEDS: apixaban 5 mg Tablet PO (09:06)
--- NOTE | 2024-12-30 09:15 | PC.SOCIAL ---
IMM Update Pg 2 of IMM updated and reviewed with patient, who verbalized understanding. Copy provided.
--- NOTE | 2024-12-30 09:18 | P.PN_ITS ---
Subjective 2 Subjective: Seen this morning. Tolerating clear liquid diet okay. Had a bowel movement overnight. Stool is starting to be more formed. Still reports nausea with eating. White count 15,000 Vitals/I&O/Wt Last Vital Signs Temp 98.8 F 12/30/24 07:51 Pulse 80 12/30/24 08:10 Resp 16 12/30/24 08:00 BP 157/78 12/30/24 07:51 Pulse Ox 94 12/30/24 08:00 O2 Del Method Room Air 12/30/24 08:00 O2 Flow Rate 9 12/27/24 20:46 12/29/24 12/30/24 12/30/24 22:59 06:59 14:59 Intake Total 290 / 1120 350 / 1470 120 / 120 Balance 290 / 1120 350 / 1470 120 / 120 Physical Exam 2 Narrative: Sitting up in chair. Const: COMMON NORMALS: patient oriented x3 and alert GENERAL APPEARANCE: c ooperative ORIENTATION/CONSCIOUSNESS: Yes awake Resp: COMMON NORMALS: normal respiratory effort and clear to auscultation bilaterally AUSCULTATION: clear to auscultation bilaterally Cardio: COMMON NORMALS: regular rhythm, S1 normal heart sound present and S2 normal heart sound present RHYTHM: regular rhythm HEART SOUNDS: S1 normal heart sound present and S2 normal heart sound present GI: COMMON NORMALS: Soft to palpation PALPATION: Yes Soft to palpation, No Tenderness to palpation present (GI) and Yes Other GI palpation findings present (improved abdominal exam) Extremity: GENERAL: Yes edema (Trace) Neuro: COMMON NORMALS: patient oriented x3 and moves all extremities S ENSORIUM/ORIENTATION: Yes alert Data 12/30/24 05:20 12/30/24 05:20 A&P Assessment and plan (1) Pancreatitis: Improvement has slowed somewhat, further improvement in leukocytosis on review of CBC, however, poor oral intake, additionally dry heaving, nausea today. Some vomiting. Continue Zofran as needed. Add Reglan. Holding off on advancement of diet for now, agree with surgery continue full liquid today, consider soft diet tomorrow. If improving and able to advance, possibly could discharge tomorrow. She does state that she may not have a caregiver to receive her tomorrow. Discussed with case folder, will follow-up with her. She is considering another option who may help her get settled at home upon return. Reviewed PT assessment, with recommended continued home exercise. Repeat CBC, chemistry. Reviewed intake and output, chemistry. Reviewed surgery note. Discussed with nursing, case folder. 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 Reviewed chemistry, T. bili further down to 1.2. Alk phos was down to 128. Upon further evaluation, general surgery was comfortable with her admission here with further consideration of early cholecystectomy versus delayed cholecystectomy with follow-up after recovery from pancreatitis. Abdominal pain overall has improved. Complicated by SVT, so far without recurrence. Surgery further reevaluated with regards to consideration of cholecystectomy today, with recurrent indicators of cholecystitis, mild pericholecystic edema on imaging, improving biliary parameters, issues with tachyarrhythmia, planning and status tube pursue delayed cholecystectomy after resolution of of pancreatitis. DC IVF. Continue acetaminophen as needed for pain. IV morphine as needed for severe breakthrough. (2) SVT (supraventricular tachycardia): Give additional potassium replacement, unreviewed 3.5. Requesting K rider. Reviewed cardiology note. Reviewed cardiology note, discussed w floorleader, appreciate consultation. Agree with addition of metoprolol which they may further adjust today, and continuing Cardizem. Monitor for risk of hypotension with combination of Cardizem and metoprolol. Continuous telemetry monitoring. (3) Cholecystitis: Reviewed surgery note. Cont Zosyn for now. Full liquids for now, possible advancement to soft tomorrow and possible discharge. Discussed with surgery and with her on further surgery reevaluation, will be planning for delayed outpatient cholecystectomy after improvement from acute pancreatitis. Trial of advancement of diet Reviewed MRCP, cholelithiasis with mild pericholecystic edema. Mild pericholecystic changes on CT reassessment. As above. (4) UTI (urinary tract infection): Reviewed urine culture, positive for E. coli, resistant to ampicillin. Continue treatment with Zosyn. Plan Atrial fibrillation with RVR: With surgery deferred at this time, may be able to resume anticoagulation, possibly with Lovenox for now. She usually takes Cardizem which has been. Monitor on telemetry. MARYCARMEN: Does not wear CPAP Hypothyroidism: Levothyroxine DM2: Currently NPO. Hypoglycemia protocol. COPD: Not in exacerbation, DuoNebs as needed. Budesonide. Osteoarthritis RA 12/24/2024 continue vanc + zosyn for empiric coverage continue levothyroxine, diltiazem, metoprolol succ continue full liquid, hold off on going to GI soft diet stool sample positive for c.diff continue oral vancomycin dc home once able to tolerate gi soft diet 12/25/2024 pt positive for c.diff continue oral vanc x 10 days wbc 19K stop zosyn at 7 days. last dose 12/26 cotninue to monitor electrolytes advance diet to gi soft gen surgery following possible dc home in 24-48 hours once pt able to tolerate gi soft diet diarrhea hasnt improved yet. 12/26/2024 wbc count 19.55K this am continues to have diarrhea fever overnight 100.5 consult ID await recommendations check ct chest abd pelvis continue zosyn continue GI soft diet, requires continued hospitalization at this time, fever of unknown origin further mgmt decisions to be made after discussion with ID and reviewing imaging. switch from vanc to dificid 12/27/2024 Discussed at length with ID and general surgery. Decision made to transfer patient to [facility] for GI consultation potentially needing an ERCP going forward. Continue Dificid for C. difficile diarrhea Overnight temperature 101.3. CT chest abdomen pelvis shows worsening pancreatitis. 1. Progression of acute pancreatitis since 12/21/2024. 2. Increasing peripancreatic edema, soft tissue stranding and fluid. No formed fluid collections to suggest a pseudocyst or abscess. 3. Pancreas enhances diffusely. No hemorrhagic pancreatitis. 4. Contracted gallbladder. Minimal gallbladder wall thickening. 5. No intrahepatic duct dilatation. Common bile duct is normal. 6. Bibasilar atelectasis. Atelectasis and opacification of the LEFT lung base has improved since 12/21/2024. 7. Very small LEFT pleural effusion is unchanged. 8. Small amount of free fluid in the pelvis has decreased since 12/21/2024. 9. Minimal LEFT retroareolar soft tissue thickening. Recommend diagnostic mammography as an outpatient. continue GI soft diet continue iv vanco and zosyn Pt has been accepted for transfer to [facility] awaiting bed at this time 12/28/2024 Continue Dificid for C. difficile diarrhea Afebrile overnight De-escalate diet to clear liquids. Stop GI soft diet Continue IV Vanco and Zosyn. Pt has been accepted for transfer to [facility] awaiting bed at this time discussed with ID and gen surg 12/29/2024 Continue Dificid for C. difficile diarrhea Afebrile overnight continue clear liquids awaiting bed at [facility] Continue IV Vanco and Zosyn. COntiniue Difficid 12/30/2024 Continue Dificid for C. difficile diarrhea Afebrile overnight Continue on clear liquids. Patient experiencing nausea on advance diet. Continue IV vancomycin and Zosyn. Discussed with infectious disease Plan to transfer to [facility] today for possible further evaluation with ERCP. PDMP PDMP Reviewed: Not Reviewed Attestations 2 Medical Necessity Statement*: awaiting transfer to [facility] Diagnoses Pancreatitis K85.90 SVT (supraventricular tachycardia) I47.10 Cholecystitis K81.9 UTI (urinary tract infection) N39.0
[2024-12-30 11:02] LABS: Vancomycin Trough 18.7 ug/mL (10-15)
[2024-12-30 11:53] LABS: Glucose Point of Care 115 mg/dL (70-110)
[2024-12-30 12:00] VITALS: BP 174/79; PULSE 87; RESP 18; TEMP 36.8; O2SAT 94
[2024-12-30] MEDS: pantoprazole 40 mg SDV IVP (12:41)
[2024-12-30] MEDS: ondansetron 2 mg/ML SDV 2 mL 4 MG IVP (12:42)
[2024-12-30] MEDS: vancomycin 1,500 MG/300 ML PIGGYBACK 200 MG IV (12:52)
[2024-12-30 15:08] VITALS: BP 174/79; PULSE 87; RESP 18; TEMP 36.8; O2SAT 94
== END 2024-12-30 15:10 | disposition short-term general hospital (02) | DRG 439 ==
LOC: ER 12-20 06:42 → ICU 12-20 16:32 → MEDSURG 12-23 15:57
PROVIDERS: Physician Assistant; Student in an Organized Health Care Education/Training Program; Surgery; Admitting Provider Internal Medicine; Emergency Provider Family Medicine; PCP Clinical Nurse Specialist Adult Health; Visit Provider Internal Medicine
DX: K85.10 Biliary acute pancreatitis without necrosis or infection (principal); A04.72 Enterocolitis due to Clostridium difficile, not specified as recurrent; I47.10 Supraventricular tachycardia, unspecified; K83.09 Other cholangitis; N39.0 Urinary tract infection, site not specified; Z16.11 Resistance to penicillins; R74.8 Abnormal levels of other serum enzymes; K81.9 Cholecystitis, unspecified; B96.20 Unspecified Escherichia coli [E. coli] as the cause of diseases classified elsewhere; I48.91 Unspecified atrial fibrillation; G47.33 Obstructive sleep apnea (adult) (pediatric); E03.9 Hypothyroidism, unspecified; E11.9 Type 2 diabetes mellitus without complications; J44.9 Chronic obstructive pulmonary disease, unspecified; M19.90 Unspecified osteoarthritis, unspecified site; M06.9 Rheumatoid arthritis, unspecified; E78.5 Hyperlipidemia, unspecified; M1A.9XX0 Chronic gout, unspecified, without tophus (tophi); K76.0 Fatty (change of) liver, not elsewhere classified; I10 Essential (primary) hypertension; Z79.01 Long term (current) use of anticoagulants
CPT/HCPCS: 36415; 36416; 71260; 74177; 74181; 76705; 80048; 80053; 80061; 80076; 80202; 81001; 82150; 82962; 83605; 83690; 83735; 84478; 85025; 86850; 86900; 87040; 87077; 87086; 87186; 87324; 87486; 87493; 87581; 87633; 93005; 93306; 94640; 94799; 96361; 96372; 96374; 96375; 96376; 97110; 97116; 97161; 97530; 99285; J0153; J0696; J1650; J1938; J2250; J2270; J2405; J2470; J2543; J3010; J3370; J3372; J3475; J3480; J3490; J7030; J7120; J7614; J7626; J9999

== ENCOUNTER 2025-03-04 16:07 | Observation (INO) | payer MEDICARE, MEDICAID, SELFPAY ==
[2025-03-04 16:08] VITALS: BP 99/56; PULSE 87; RESP 18; TEMP 36.8; O2SAT 93; BMI 37.0
--- NOTE | 2025-03-04 16:13 | W.ED.GENADLT ---
HPI - General Adult General: Chief complaint: ER Hold Stated complaint: nausea Time Seen by Provider: 03/04/25 16:11 History of Present Illness: 69-year-old female presents emergency room via EMS from her home. She lives evidently in a tent like structure has an air conditioner but it was not working she is extremely hot out today she was [id number] heated was still very diaphoretic when they arrived but had become nauseous had a little bit of cramping. No vomiting she states she has had some diarrhea. She states she feels much better since the EMS picked her up today given her IV fluids and also had an air conditioned ambulance which had cooled her off substantially. She denies any chest pain or shortness of breath. Associated symptoms: Deny chest pain, dyspnea or rash Related Data Home Medications ?Medication ?Instructions ?Recorded ?Confirmed allopurinol 300 mg tablet 300 mg PO QPM 12/20/24 03/05/25 diltiazem HCl 300 mg capsule,24 300 mg PO QAM 12/20/24 03/05/25 hr,extended release levothyroxine 75 mcg capsule 75 mcg PO QAM 12/20/24 03/05/25 lisinopril 20 mg tablet 20 mg PO QAM 12/20/24 03/05/25 Held on 03/05/25. Instructions: Resume on 03/08/25. montelukast 10 mg tablet 10 mg PO BEDTIME 12/20/24 03/05/25 (Singulair) multivitamin 1 tab PO QAM 12/20/24 03/05/25 ondansetron 4 mg disintegrating 4 mg PO Q8H PRN Nausea 03/05/25 03/05/25 tablet Previous Rx's ?Medication ?Instructions ?Recorded apixaban 5 mg tablet (Eliquis) 5 mg PO BID #60 tabs 09/26/24 atorvastatin 20 mg tablet 20 mg PO BEDTIME #30 tabs 09/26/24 Nebulizer machine and supplies #1 ea 01/05/25 metoprolol succinate 25 mg 25 mg PO DAILY #30 tabs 01/05/25 tablet,extended release 24 hr Held on 03/05/25. Instructions: Resume on 03/07/25. nystatin 100,000 unit/gram topical 1 applic topical BID #30 grams 01/27/25 powder budesonide 0.5 mg/2 mL suspension 0.5 mg (2 mL) inhalation DAILY #60 03/01/25 for nebulization mL mometasone-formoterol HFA 100 2 puff inhalation BID #13 grams 03/01/25 mcg-5 mcg/actuation aerosol inhaler (Dulera) Allergies Allergy/AdvReac Type Severity Reaction Status Date / Time blueberry Allergy ALGY-Anaphy Verified 03/01/25 10:56 laxis Review of Systems Const: Denies: fever(s) or chills Card: Denies: chest pain Resp: Denies: dyspnea GI: Denies: abdominal pain : Denies: dysuria, urinary frequency or urinary urgency Musc: Denies: neck pain or back pain Skin/Breast: Denies: rash PFSH ED PFSH: Medical History Enrolled in chronic care management MARYCARMEN (obstructive sleep apnea) hx of diagnosed marycarmen, not on cpap Hypothyroidism Chronic anticoagulation Chronic gout Hyperlipidemia Essential hypertension Type 2 diabetes mellitus Chronic obstructive pulmonary disease, unspecified COPD type Atrial fibrillation Osteoarthritis Rheumatoid arthritis Surgical History Hx of goiter hx of goiter excision Hx of local excision of skin lesion left foot skin cancer removed Hx of tooth extraction Hx of hysterectomy, total had a plasma reaction when she had her hysterectomy. Was told to avoid future surgeries due to this reaction. 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 Physical Exam Const: COMMON NORMALS: no acute distress GENERAL APPEARANCE: cooperative and comfortable ORIENTATION/CONSCIOUSNESS: Yes awake, Yes oriented to person, Yes oriented to place and Yes oriented to time HENMT: COMMON NORMALS: normocephalic, atraumatic and hearing grossly normal bilaterally HEAD & SCALP: normocephalic and atraumatic Resp: COMMON NORMALS: normal respiratory effort, No retractions, No use of accessory muscles and clear to auscultation bilaterally AUSCULTATION: clear to auscultation bilaterally Cardio: COMMON NORMALS: regular rate, regular rhythm and No murmurs present (Cardio) RATE: regular rate RHYTHM: regular rhythm GI: COMMON NORMALS: Soft to palpation and No hepatosplenomegaly present AUSCULTATION: Yes normoactive bowel sounds PALPATION: Yes Soft to palpation, No Tenderness to palpation present (GI), No Guarding due to palpation present (GI) and Yes No hepatosplenomegaly present Extremity: COMMON NORMALS: normal to inspection, capillary refill normal, no clubbing, cyanosis or edema, no calf tenderness and no pedal edema Neuro: SENSORIUM/ORIENTATION: Yes oriented to person, Yes oriented to place and Yes oriented to time Skin: COMMON NORMALS: no rashes or lesions noted GENERAL SKIN EXAM: no rashes or lesions noted Course Vital Signs: Vital signs: Vital Signs Temperature 98.4 F 03/05/25 15:52 Pulse Rate 74 03/05/25 15:52 Respiratory Rate 18 03/05/25 15:52 Blood Pressure 127/65 03/05/25 15:52 Pulse Oximetry 94 03/05/25 15:52 Oxygen Delivery Me thod Room Air 03/05/25 11:54 MDM - General Adult Medical Decision Making Heat exhaustion with AKA. IV fluids given. Discussed with hospitalist will place on observation. Medical Records I reviewed the patient's medical records. Lab Data I reviewed the patient's lab results. 03/05/25 04:25 03/05/25 04:25 Radiology Impressions Chest X-Ray 03/04/25 16:49 IMPRESSION: Mild linear atelectasis or scar at the left base. Laboratory Results WBC 10.52 10^3/uL (3.29-11.43) 03/04/25 16:17 RBC 4.36 10^6/uL (3.85-5.65) 03/04/25 16:17 Hgb 12.90 g/dL (11.27-16.99) 03/04/25 16:17 Hct 38.5 % (36-47) 03/04/25 16:17 MCV 88.3 fl (85-98) 03/04/25 16:17 MCH 29.6 pg (27-33) 03/04/25 16:17 MCHC 33.5 g/dL (30-55) 03/04/25 16:17 RDW 14.1 % (12.1-15.1) 03/04/25 16:17 Plt Count 258 10^3/cmm (157-399) 03/04/25 16:17 MPV 10.8 fL (7.4-10.4) H 03/04/25 16:17 Neut % (Auto) 81.2 % 03/04/25 16:17 Lymph % (Auto) 13.5 % 03/04/25 16:17 [place] % (Auto) 3.7 % 03/04/25 16:17 Eos % (Auto) 0.6 % 03/04/25 16:17 Baso % (Auto) 0.5 % 03/04/25 16:17 Neut # (Auto) 8.55 10^3/uL (1.8-7.7) H 03/04/25 16:17 Lymph # (Auto) 1.4 10^3/uL (0.8-4.8) 03/04/25 16:17 Chester # (Auto) 0.4 10^3/uL (0.2-0.9) 03/04/25 16:17 Eos # (Auto) 0.1 10^3/uL (0.0-0.8) 03/04/25 16:17 Baso # (Auto) 0.1 10^3/uL (0.0-0.1) 03/04/25 16:17 Nucleated RBC % (auto) 0 % 03/04/25 16:17 Nucleated RBCs # 0.0 /100WBC 03/04/25 16:17 Sodium 135 mmol/L (136-145) L 03/04/25 16:17 Potassium 4.4 mmol/L (3.5-5.1) 03/04/25 16:17 Chloride 98 mmol/L (98-107) 03/04/25 16:17 Carbon Dioxide 19 mmol/L (22-29) L 03/04/25 16:17 Anion Gap 22.4 (5-19) H 03/04/25 16:17 BUN 34 mg/dL (8-23) H 03/04/25 16:17 Creatinine 2.5 mg/dL (0.5-0.9) H 03/04/25 16:17 GFR Calculation 19.1 mL/min (90-130) L 03/04/25 16:17 Glucose 152 mg/dL (65-115) H 03/04/25 16:17 Calculated Osmolality 291 mOsm/kg (285-295) 03/04/25 16:17 Lactic Acid 2.3 mmol/L (0.5-2.2) H 03/04/25 16:17 Calcium 9.7 mg/dL (8.5-10.5) 03/04/25 16:17 Total Bilirubin 0.9 mg/dL (0.15-1.2) 03/04/25 16:17 AST 23 U/L (0-32) 03/04/25 16:17 ALT 19 U/L (0-33) 03/04/25 16:17 Alkaline Phosphatase 85 U/L (35-105) 03/04/25 16:17 Creatine Kinase 178 U/L (26-192) 03/04/25 16:17 C-Reactive Protein 5.5 mg/L (0.0-4.9) H 03/04/25 16:17 NT-Pro-B Natriuret Pep 65 pg/mL (0-125) 03/04/25 16:17 Total Protein 7.4 g/dL (6.6-8.7) 03/04/25 16:17 Albumin 4.4 g/dL (3.5-5.2) 03/04/25 16:17 Globulin 3.0 g/dL (1.3-4.6) 03/04/25 16:17 Triglycerides 93 mg/dL (0-150) 03/04/25 16:17 Cholesterol 121 mg/dL (0-200) 03/04/25 16:17 LDL Cholesterol, Calc 58 mg/dL (50-129) 03/04/25 16:17 HDL Cholesterol 44 mg/dL (60-100) L 03/04/25 16:17 LDL/HDL Ratio 1.32 RATIO (0.00-3.22) 03/04/25 16:17 Cholesterol/HDL Ratio 2.75 mg/dL (0.0-4.40) 03/04/25 16:17 Lipase 55 U/L (13-60) 03/04/25 16:17 Procalcitonin 0.08 ng/mL (0-0.5) 03/04/25 16:17 TSH 0.81 uIU/mL (0.27-4.20) 03/04/25 16:17 Ethyl Alcohol < 10 mg/dL (0-10) 03/04/25 16:17 Serum Ketones Negative (Negative) 03/04/25 16:17 All radiology interpretation(s) finalized by discharge Discharge Plan Discharge Patient Disposition: Admitted As Inpatient Admit Provider: Adriel Howell Clinical Impression: Heat exhaustion, Dehydration, Type 2 diabetes mellitus, Acute kidney injury Condition: Stable Discharge Diet: Cardiac Discharge Activity: Resume usual activity Coding Level of Care Code ED Admissions Dean for Elis Carey
[2025-03-04 16:25] LABS: Hematocrit 38.5 % (36-47); Hemoglobin 12.90 g/dL (11.27-16.99); Mean Corpuscular HGB Conc 33.5 g/dL (30-55); Mean Corpuscular Hemoglobin 29.6 pg (27-33); Mean Corpuscular Volume 88.3 fl (85-98); Nucleated Red Blood Cells % 0 %; Platelet Count 258 10^3/cmm (157-399); Red Blood Count 4.36 10^6/uL (3.85-5.65); White Blood Count 10.52 10^3/uL (3.29-11.43)
[2025-03-04 16:46] LABS: Alanine Aminotransferase 19 U/L (0-33); Albumin Level 4.4 g/dL (3.5-5.2); Alkaline Phosphatase 85 U/L (35-105); Anion Gap 22.4 (5-19); Aspartate Amino Transferase 23 U/L (0-32); Blood Urea Nitrogen 34 mg/dL (8-23); Calcium 9.7 mg/dL (8.5-10.5); Carbon Dioxide 19 mmol/L (22-29); Chloride 98 mmol/L (98-107); Creatinine Clr Calc Pharmacy 26.8089; Globulin 3.0 g/dL (1.3-4.6); Glucose 152 mg/dL (65-115); Lipase 55 U/L (13-60); Osmolality Calculated 291 mOsm/kg (285-295); Potassium 4.4 mmol/L (3.5-5.1); Sodium 135 mmol/L (136-145); Total Protein 7.4 g/dL (6.6-8.7)
--- NOTE | 2025-03-04 16:49 | XRR_ITS ---
PROCEDURE INFORMATION: Exam: XR Chest Exam date and time: 03/04/2025 4:52 PM Age: 69 years old Clinical indication: Dyspnea; Prior surgery; Surgery date: 6+ months; Surgery type: Goiter excision; Additional info: Dyspnea/cough TECHNIQUE: Imaging protocol: Radiologic exam of the chest. Views: 1 view. COMPARISON: CT chest abdpel w/*[id number] 12/26/2024 12:07 PM FINDINGS: Lungs: Mild linear atelectasis or scarring at the left lung base. Small left apical calcified pulmonary nodule. Pleural spaces: Unremarkable. No pleural effusion. No pneumothorax. Heart/Mediastinum: Unremarkable. No cardiomegaly. Bones/joints: Unremarkable. XR/XR chest 1V portable [id number] IMPRESSION: Mild linear atelectasis or scar at the left base.
[2025-03-04] MEDS: ondansetron 2 mg/ML SDV 2 mL 4 MG IVP (16:59)
--- NOTE | 2025-03-04 17:06 | ECG_ITS ---
[facility] Test Date: 2025-03-04 Pat Name: Priti Hurtado Department: Room: Gender: Female Head Of [employer]: : 1955 Requested By: Prieto Castellanos Order Number: [id number] Quyen MD: Zenobia Plummer M.D. Measurements Intervals [place] Rate: 73 P: 52 HI: 147 QRS: 14 QRSD: 95 T: 18 QT: 394 QTc: 434 Interpretive Statements SINUS RHYTHM Compared to ECG 12/21/2024 08:20:47 Sinus tachycardia no longer present Myocardial infarct finding no longer present Electronically Signed On 03-05-2025 18:36:24 CDT by Zenobia Plummer M.D. [email or web address] [id number]
--- NOTE | 2025-03-04 17:51 | PM.HP ---
Providers/Chief Complaint Admitting Physician: Adriel Howell MD Primary Care Provider: Sudheer Ivy Chief Complaint: nausea History of Present Illness Priti Hurtado is a 69 year old female with a past medical history of atrial fibrillation, hypothyroidism, history of's SVT, history of pancreatitis, cholecystitis, transferred to [facility], currently medically managed with plans on outpatient follow-up with repeat CT in the next 2 weeks, 2 diabetes mellitus, COPD, currently living in a hut on her friend's private property, who presents to [facility] due to weakness, fatigue. Currently patient alert oriented x 3, following all commands, she was brought in by EMS, she tells me that she had issues with her AC in her hut, the temperatures got up to 106 degrees, she felt unwell, no nausea, but does report acute on chronic diarrhea, she does report a history of gallstone pancreatitis, for she was transferred to [facility], she tells me that they want the pancreas to cool down further before they take her gallbladder out with plans on repeat CAT scan in the next few weeks, Review of Systems Const: Denies: fever(s) Card: Denies: chest pain Resp: Denies: dyspnea GI: Denies: abdominal pain : Denies: flank pain Medications/Allergies Home Medications ?Medication ?Instructions ?Recorded ?Confirmed ?Last Taken ?Type blood sugar diagnostic (OneTouch #100 ea 01/27/24 03/01/25 Unknown Rx Verio test strips) blood-glucose meter (OneTouch #1 ea 01/27/24 03/01/25 Unknown Rx Verio Flex Meter) lancets #100 ea 01/27/24 03/01/25 Unknown Rx albuterol sulfate 90 mcg/actuation 2 puff inhalation QID PRN 09/26/24 03/01/25 Unknown Rx aerosol inhaler (Ventolin HFA) shortness of breath or wheezing #6.7 grams apixaban 5 mg tablet (Eliquis) 5 mg PO BID #60 tabs 09/26/24 03/01/25 12/18/24 Rx atorvastatin 20 mg tablet 20 mg PO BEDTIME #30 tabs 09/26/24 03/01/25 12/18/24 Rx allopurinol 300 mg tablet 300 mg PO QPM 12/20/24 03/01/25 12/18/24 History diltiazem HCl 300 mg capsule,24 300 mg PO QAM 12/20/24 03/01/25 12/18/24 History hr,extended release levothyroxine 75 mcg capsule 75 mcg PO QAM 12/20/24 03/01/25 12/18/24 History lisinopril 20 mg tablet 20 mg PO QAM 12/20/24 03/01/25 12/19/24 History montelukast 10 mg tablet 10 mg PO .NOON 12/20/24 03/01/25 12/18/24 History (Singulair) multivitamin 1 tab PO QAM 12/20/24 03/01/25 12/19/24 History Nebulizer machine and supplies #1 ea 01/05/25 03/01/25 Unknown Rx Saccharomyces boulardii 250 mg PO 01/05/25 03/01/25 Unknown History capsule (Florastor) ciprofloxacin HCl 500 mg tablet mg PO 01/05/25 03/01/25 Unknown History metoprolol succinate 25 mg 25 mg PO DAILY #30 tabs 01/05/25 03/01/25 Unknown Rx tablet,extended release 24 hr metronidazole 500 mg tablet 500 mg PO TID 01/05/25 03/01/25 Unknown History ondansetron 4 mg disintegrating 4 mg PO Q8H #60 tabs 01/05/25 03/01/25 Unknown Rx tablet pantoprazole 40 mg tablet,delayed 40 mg PO DAILY 01/05/25 03/01/25 Unknown History release vancomycin 125 mg capsule mg PO 01/05/25 03/01/25 Unknown History fluconazole 100 mg tablet 100 mg PO DAILY #7 tabs 01/27/25 03/01/25 Unknown Rx nystatin 100,000 unit/gram topical 1 applic topical BID #30 grams 01/27/25 03/01/25 Unknown Rx powder budesonide 0.5 mg/2 mL suspension 0.5 mg (2 mL) inhalation DAILY #60 03/01/25 03/01/25 Unknown Rx for nebulization mL mometasone-formoterol HFA 100 2 puff inhalation BID #13 grams 03/01/25 03/01/25 Unknown Rx mcg-5 mcg/actuation aerosol inhaler (Dulera) Allergies Allergy/AdvReac Type Severity Reaction Status Date / Time blueberry Allergy ALGY-Anaphy Verified 03/01/25 10:56 laxis PFSH Acute PFSH: Medical History Enrolled in chronic care management MARYCARMEN (obstructive sleep apnea) hx of diagnosed marycarmen, not on cpap Hypothyroidism Chronic anticoagulation Chronic gout Hyperlipidemia Essential hypertension Type 2 diabetes mellitus Chronic obstructive pulmonary disease, unspecified COPD type Atrial fibrillation Osteoarthritis Rheumatoid arthritis Surgical History Hx of goiter hx of goiter excision Hx of local excision of skin lesion left foot skin cancer removed Hx of tooth extraction Hx of hysterectomy, total had a plasma reaction when she had her hysterectomy. Was told to avoid future surgeries due to this reaction. 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 Vitals/I&O/Wt Last Vital Signs Temp 98.2 F 03/04/25 16:08 Pulse 87 03/04/25 16:08 Resp 18 03/04/25 16:08 BP 99/56 03/04/25 16:08 Pulse Ox 93 03/04/25 16:08 O2 Del Method Room Air 03/04/25 16:08 Weight last 48 hrs Weight 107.501 kg Physical Exam Const: COMMON NORMALS: no acute distress and patient oriented x3 Eye: COMMON NORMALS: Equal, round and reactive pupils present Resp: COMMON NORMALS: normal respiratory effort, No retractions, No use of accessory muscles and clear to auscultation bilaterally AUSCULTATION: clear to auscultation bilaterally Cardio: COMMON NORMALS: no JVD, regular rate, regular rhythm, S1 normal heart sound present and S2 normal heart sound present RATE: regular rate RHYTHM: regular rhythm HEART SOUNDS: S1 normal heart sound present and S2 normal heart sound present GI: COMMON NORMALS: Normal to inspection, nondistended, normoactive bowel sounds present, Soft to palpation and non-tender Extremity: COMMON NORMALS: no pedal edema Neuro: COMMON NORMALS: patient oriented x3, CN's II-XII intact bilaterally and moves all extremities Psych: COMMON NORMALS: mental status grossly normal Data 03/04/25 16:17 03/04/25 16:17 A&P Assessment and plan 1. Dehydration: 2. Heat exhaustion: 3. Increased anion gap metabolic acidosis: Plan: Heat exhaustion - Monitor mentation closely - IV fluids Acute kidney injury - IV fluids Increased anion gap metabolic acidosis - Will obtain urine ketones to rule out DKA - IV fluids - CPK Soft blood pressures, obtain lactic acid Atrial fibrillation, hold blood pressure medications, hold heart rate medications continue Eliquis Full code Eliquis for DVT prophylaxis PDMP PDMP Reviewed: Not Reviewed Attestations Medical Necessity Statement*: Patient requires hospitalization, inpatient, greater than 2 midnights for heat exhaustion, KAPIL, increased anion gap metabolic acidosis Diagnoses Dehydration E86.0 Heat exhaustion T67.5XXA Increased anion gap metabolic acidosis E87.29
[2025-03-04 18:08] VITALS: BP 124/70; PULSE 71; O2SAT 93
[2025-03-04 18:25] LABS: Glucose Urine UA Negative (Normal); Nitrate Urine Negative (Negative); Specific Gravity, Urine 1.010 (1.005-1.030)
[2025-03-04 18:28] LABS: Ketone (Acetest) Serum Negative (Negative)
[2025-03-04 18:29] LABS: Add Urine Microscopic? YES
[2025-03-04 18:32] LABS: Lactic Sepsis W/Reflex 2.3 mmol/L (0.5-2.2)
[2025-03-04 18:35] LABS: Reflex Lactate Order REFLEX LACTIC ORDERD
[2025-03-04 18:44] LABS: UA Slide Review UA Slide Review Perf
[2025-03-04 18:46] LABS: NT Pro B Type Natriuretic Pept 65 pg/mL (0-125); Procalcitonin 0.08 ng/mL (0-0.5); Thyroid Stimulating Hormone 0.81 uIU/mL (0.27-4.20)
[2025-03-04 18:58] LABS: Alcohol Level < 10 mg/dL (0-10)
[2025-03-04 19:07] VITALS: BP 116/41; PULSE 81; RESP 16; O2SAT 95
[2025-03-04 19:39] LABS: Cholesterol 121 mg/dL (0-200); HDL Cholesterol 44 mg/dL (60-100); Triglycerides 93 mg/dL (0-150)
[2025-03-04 19:45] LABS: PCP Screen Urine Negative (Negative)
[2025-03-04 19:53] LABS: Lactic Acid level (Lactate) 1.9 mmol/L (0.5-2.2)
[2025-03-04 20:00] VITALS: BP 117/55; PULSE 87; RESP 16; O2SAT 96
[2025-03-04 23:25] VITALS: BP 119/57; PULSE 73; RESP 16; O2SAT 94
[2025-03-04 23:41] VITALS: BMI 35.9
[2025-03-05] VITALS (7 sets, daily range): BP systolic 104–127; BP diastolic 49–67; PULSE 68–75; RESP 16–20; TEMP 36.3–36.9; O2SAT 94–98
[2025-03-05 05:04] LABS: Hematocrit 33.6 % (36-47); Hemoglobin 11.00 g/dL (11.27-16.99); Mean Corpuscular HGB Conc 32.7 g/dL (30-55); Mean Corpuscular Hemoglobin 29.7 pg (27-33); Mean Corpuscular Volume 90.8 fl (85-98); Nucleated Red Blood Cells % 0 %; Platelet Count 211 10^3/cmm (157-399); Red Blood Count 3.70 10^6/uL (3.85-5.65); White Blood Count 9.50 10^3/uL (3.29-11.43)
[2025-03-05 05:24] LABS: Alanine Aminotransferase 15 U/L (0-33); Albumin Level 3.6 g/dL (3.5-5.2); Alkaline Phosphatase 71 U/L (35-105); Anion Gap 15.9 (5-19); Aspartate Amino Transferase 19 U/L (0-32); Blood Urea Nitrogen 29 mg/dL (8-23); Calcium 8.7 mg/dL (8.5-10.5); Carbon Dioxide 21 mmol/L (22-29); Chloride 104 mmol/L (98-107); Creatinine Clr Calc Pharmacy 47.2323; Globulin 2.7 g/dL (1.3-4.6); Glucose 100 mg/dL (65-115); Magnesium 2.1 mg/dL (1.7-2.3); Osmolality Calculated 290 mOsm/kg (285-295); Potassium 3.9 mmol/L (3.5-5.1); Sodium 137 mmol/L (136-145); Total Protein 6.3 g/dL (6.6-8.7)
--- NOTE | 2025-03-05 11:37 | PM.DCS ---
Discharge Providers Date of Admission: 03/04/25 17:08 Date of Discharge: March 05, 2025 Attending Provider at Admission: Adriel Howell MD Attending Provider at Discharge: Adriel Howell MD Primary Care Provider: Sudheer Ivy Diagnoses at Discharge Discharge Diagnosis 1. Dehydration: 2. Heat exhaustion: 3. Increased anion gap metabolic acidosis: Reason for Visit Reason for Visit: nausea Hospital Course Hospital Course Priti Hurtado is a 69 year old female with a past medical history of atrial fibrillation, hypothyroidism, history of's SVT, history of pancreatitis, cholecystitis, transferred to [facility], currently medically managed with plans on outpatient follow-up with repeat CT in the next 2 weeks, 2 diabetes mellitus, COPD, currently living in a hut on her friend's private property, who presents to [facility] due to weakness, fatigue. Currently patient alert oriented x 3, following all commands, she was brought in by EMS, she tells me that she had issues with her AC in her hut, the temperatures got up to 106 degrees, she felt unwell, no nausea, but does report acute on chronic diarrhea, she does report a history of gallstone pancreatitis, for she was transferred to [facility], she tells me that they want the pancreas to cool down further before they take her gallbladder out with plans on repeat CAT scan in the next few weeks, Patient presented to [facility] for heat exhaustion, KAPIL, increased anion gap metabolic acidosis, secondary to heat exhaustion and dehydration. Patient was monitored as inpatient received IV fluids, overall clinically proved, creatinine discharge 1.4. On discharge patient tells me that she is going back to stay in her motor home, which has air conditioning, discussed for her to drink at least 2 to 3 L of fluid a day, due to soft blood pressures resume blood pressure medications in a graded fashion. Patient is to follow-up with [facility] GI, for her gallstone pancreatitis. Denies any right upper quadrant pain, discussed continuing GI soft/fat-free diet, Physical Exam Const: COMMON NORMALS: no acute distress and patient oriented x3 Resp: COMMON NORMALS: normal respiratory effort, No retractions, No use of accessory muscles and clear to auscultation bilaterally AUSCULTATION: clear to auscultation bilaterally Cardio: COMMON NORMALS: regular rate, regular rhythm, S1 normal heart sound present and S2 normal heart sound present RATE: regular rate RHYTHM: regular rhythm HEART SOUNDS: S1 normal heart sound present and S2 normal heart sound present GI: COMMON NORMALS: Normal to inspection, nondistended, normoactive bowel sounds present and non-tender Extremity: COMMON NORMALS: no pedal edema Neuro: COMMON NORMALS: patient oriented x3 Psych: COMMON NORMALS: mental status grossly normal Discharge Data Studies Completed and Pending Completed Studies During Hospitalization Category Date Time Status XR chest 1V portable [id number] Stat Exams 03/04/25 16:49 Completed Pending at discharge Category Date Time Status Complete Blood Count w/Auto AM LABS Lab 03/06/25 04:00 Ordered Complete Blood Count w/Auto AM LABS Lab 03/07/25 04:00 Ordered Comprehensive Metabolic Panel AM LABS Lab 03/06/25 04:00 Ordered Comprehensive Metabolic Panel AM LABS Lab 03/07/25 04:00 Ordered Magnesium AM LABS Lab 03/06/25 04:00 Ordered Magnesium AM LABS Lab 03/07/25 04:00 Ordered Phosphorus AM LABS Lab 03/06/25 04:00 Ordered Phosphorus AM LABS Lab 03/07/25 04:00 Ordered Urine Culture Stat Lab 03/04/25 18:02 Received Radiology Impressions Chest X-Ray 03/04/25 16:49 IMPRESSION: Mild linear atelectasis or scar at the left base. Laboratory Results WBC 9.50 10^3/uL (3.29-11.43) 03/05/25 04:25 RBC 3.70 10^6/uL (3.85-5.65) L 03/05/25 04:25 Hgb 11.00 g/dL (11.27-16.99) L 03/05/25 04:25 Hct 33.6 % (36-47) L 03/05/25 04:25 MCV 90.8 fl (85-98) 03/05/25 04:25 MCH 29.7 pg (27-33) 03/05/25 04:25 MCHC 32.7 g/dL (30-55) 03/05/25 04:25 RDW 14.1 % (12.1-15.1) 03/05/25 04:25 Plt Count 211 10^3/cmm (157-399) 03/05/25 04:25 MPV 10.9 fL (7.4-10.4) H 03/05/25 04:25 Neut % (Auto) 57.2 % 03/05/25 04:25 Lymph % (Auto) 32.7 % 03/05/25 04:25 [place] % (Auto) 6.7 % 03/05/25 04:25 Eos % (Auto) 2.6 % 03/05/25 04:25 Baso % (Auto) 0.6 % 03/05/25 04:25 Neut # (Auto) 5.42 10^3/uL (1.8-7.7) 03/05/25 04:25 Lymph # (Auto) 3.1 10^3/uL (0.8-4.8) 03/05/25 04:25 [place] # (Auto) 0.6 10^3/uL (0.2-0.9) 03/05/25 04:25 Eos # (Auto) 0.3 10^3/uL (0.0-0.8) 03/05/25 04:25 Baso # (Auto) 0.1 10^3/uL (0.0-0.1) 03/05/25 04:25 Nucleated RBC % (auto) 0 % 03/05/25 04:25 Nucleated RBCs # 0.0 /100WBC 03/05/25 04:25 Sodium 137 mmol/L (136-145) 03/05/25 04:25 Potassium 3.9 mmol/L (3.5-5.1) 03/05/25 04:25 Chloride 104 mmol/L (98-107) 03/05/25 04:25 Carbon Dioxide 21 mmol/L (22-29) L 03/05/25 04:25 Anion Gap 15.9 (5-19) 03/05/25 04:25 BUN 29 mg/dL (8-23) H 03/05/25 04:25 Creatinine 1.4 mg/dL (0.5-0.9) H 03/05/25 04:25 GFR Calculation 37.3 mL/min (90-130) L 03/05/25 04:25 Glucose 100 mg/dL (65-115) 03/05/25 04:25 Calculated Osmolality 290 mOsm/kg (285-295) 03/05/25 04:25 Lactic Acid 2.3 mmol/L (0.5-2.2) H 03/04/25 16:17 Lactic Acid (Sepsis) 1.9 mmol/L (0.5-2.2) 03/04/25 19:34 Calcium 8.7 mg/dL (8.5-10.5) 03/05/25 04:25 Phosphorus 4.1 mg/dL (2.5-4.5) 03/05/25 04:25 Magnesium 2.1 mg/dL (1.7-2.3) 03/05/25 04:25 Total Bilirubin 0.5 mg/dL (0.15-1.2) 03/05/25 04:25 AST 19 U/L (0-32) 03/05/25 04:25 ALT 15 U/L (0-33) 03/05/25 04:25 Alkaline Phosphatase 71 U/L (35-105) 03/05/25 04:25 Creatine Kinase 178 U/L (26-192) 03/04/25 16:17 C-Reactive Protein 5.5 mg/L (0.0-4.9) H 03/04/25 16:17 NT-Pro-B Natriuret Pep 65 pg/mL (0-125) 03/04/25 16:17 Total Protein 6.3 g/dL (6.6-8.7) L 03/05/25 04:25 Albumin 3.6 g/dL (3.5-5.2) 03/05/25 04:25 Globulin 2.7 g/dL (1.3-4.6) 03/05/25 04:25 Triglycerides 93 mg/dL (0-150) 03/04/25 16:17 Cholesterol 121 mg/dL (0-200) 03/04/25 16:17 LDL Cholesterol, Calc 58 mg/dL (50-129) 03/04/25 16:17 HDL Cholesterol 44 mg/dL (60-100) L 03/04/25 16:17 LDL/HDL Ratio 1.32 RATIO (0.00-3.22) 03/04/25 16:17 Cholesterol/HDL Ratio 2.75 mg/dL (0.0-4.40) 03/04/25 16:17 Lipase 55 U/L (13-60) 03/04/25 16:17 Procalcitonin 0.08 ng/mL (0-0.5) 03/04/25 16:17 TSH 0.81 uIU/mL (0.27-4.20) 03/04/25 16:17 Urine Color Yellow (Yellow) 03/04/25 18:02 Urine Appearance Cloudy (CLEAR) A 03/04/25 18:02 Urine pH 5.0 (5-7) 03/04/25 18:02 Ur Specific [place] 1.010 (1.005-1.030) 03/04/25 18:02 Urine Protein Negative (Negative) 03/04/25 18:02 Urine Glucose (UA) Negative (Normal) 03/04/25 18:02 Urine Ketones Negative (Negative) 03/04/25 18:02 Urine Blood Non-haemolysed trace (Negative) 03/04/25 18:02 Urine Nitrate Negative (Negative) 03/04/25 18:02 Urine Bilirubin Negative (Negative) 03/04/25 18:02 Urine Urobilinogen 1.0 mg/dL (Negative) 03/04/25 18:02 Ur Leukocyte Esterase 1+ (Negative) A 03/04/25 18:02 Urine RBC 0-2 /hpf (0-2) 03/04/25 18:02 Urine WBC 0-5 /hpf (0-5) 03/04/25 18:02 Ur Squamous Epith Cells 6-10 /hpf (0-5) 03/04/25 18:02 Calcium Oxalate Crystal 5-10 /hpf H 03/04/25 18:02 Amorphous Sediment Not Reportable 03/04/25 18:02 Urine Bacteria 3+ /hpf (NONE) H 03/04/25 18:02 Hyaline Casts 36.39 /lpf 03/04/25 18:02 Coarse Granular Casts 0-4 /lpf H 03/04/25 18:02 Urine Mucus Trace /hpf 03/04/25 18:02 Urine Opiates Screen Negative ng/mL (Negative) 03/04/25 18:02 Ur Barbiturates Screen Negative ng/mL (Negative) 03/04/25 18:02 Ur Phencyclidine Scrn Negative ng/mL (Negative) 03/04/25 18:02 Ur Amphetamines Screen Negative ng/mL (Negative) 03/04/25 18:02 U Benzodiazepines Scrn Negative ng/mL (Negative) 03/04/25 18:02 Urine Cocaine Screen Negative ng/mL (Negative) 03/04/25 18:02 U Marijuana (THC) Screen Negative ng/mL (Negative) 03/04/25 18:02 Ethyl Alcohol < 10 mg/dL (0-10) 03/04/25 16:17 Serum Ketones Negative (Negative) 03/04/25 16:17 Vitals Last Vital Signs Temp 98.0 F 03/05/25 08:12 Pulse 68 03/05/25 08:12 Resp 20 H 03/05/25 08:12 BP 104/49 03/05/25 08:12 Pulse Ox 97 03/05/25 08:12 O2 Del Method Room Air 03/05/25 08:12 Discharge Plan Discharge Patient Disposition: Home Condition: Stable Prescriptions: Continued Eliquis 5 mg tablet 5 mg PO BID Qty: 60 11RF atorvastatin 20 mg tablet 20 mg PO BEDTIME Qty: 30 11RF Dulera 100-5 mcg/actuation HFA aerosol inhaler 2 puff inhalation BID Qty: 13 11RF budesonide 0.5 mg/2 mL suspension for nebulization 0.5 mg inhalation DAILY Qty: 60 3RF nystatin 100,000 unit/gram powder 1 applic topical BID Qty: 30 1RF Rx Instructions: apply to abdominal folds for 2-4 weeks diltiazem HCl 300 mg capsule,extended release 24 hr 300 mg PO QAM montelukast [Singulair] 10 mg tablet 10 mg PO BEDTIME allopurinol 300 mg tablet 300 mg PO QPM levothyroxine 75 mcg capsule 75 mcg PO QAM multivitamin Tablet 1 tab PO QAM ondansetron 4 mg Tablet,Disintegrating 4 mg PO Q8H PRN (Reason: Nausea) Held metoprolol succinate 25 mg tablet extended release 24 hr 25 mg PO DAILY Qty: 30 3RF Hold Instructions: Resume on 03/07/25. lisinopril 20 mg tablet 20 mg PO QAM Hold Instructions: Resume on 03/08/25. No Action (DME) Nebulizer machine and supplies See Rx Instructions .ROUTE .MEDSUPPLY Qty: 1 11RF Rx Instructions: As directed Discharge Order = DC NOW: Discharge Order (Routine); Ordered 03/05/25 Ordered By: Adriel Howell Referrals: Sudheer Ivy, [facility] [Primary Care Provider, Family Practice] Referral Note: We have notified your physician's clinic of the need for a follow-up appointment to be scheduled. If you have not heard from them within the next 2 business days, please call them directly. Discharge Diet: Cardiac Discharge Activity: Resume usual activity Patient Instructions: Opioid Safety, Patient Portal & Thierry Instructions Activity Restrictions/Additional Instructions: - Please hydrate well drink plenty of electrolyte balance fluids daily at least 2-3 L of fluid a day - Please stay out of the heat, - Follow-up with your primary care provider Discharge Attestations Time Spent in Discharge Care*: other Quality Metrics Clinical Quality Measures [ No reported AMI, CVA or VTE this stay] Coding Level of Care Code Acute Code for Chg Fwd Diagnoses Dehydration E86.0 Heat exhaustion T67.5XXA Increased anion gap metabolic acidosis E87.29
--- NOTE | 2025-03-05 14:00 | PC.NURSE ---
Patient is A&Ox3. Respirations even and non-labored on room air. Patient discharges instructions reviewed with patient at this time. Patient verbalized understanding of discharge instruction. Patient is waiting for a ride. IV removed intact. Patient tolerated well.
--- NOTE | 2025-03-05 14:31 | PC.NURSE ---
Patient's ride arrived at this time. Patient pushed to private car.
== END 2025-03-05 14:25 | disposition home or self-care (01) ==
LOC: ER 16:58 → MEDSURG 03-05 09:39 → ER IP 03-09 13:33
PROVIDERS: Admitting Provider Family Medicine; Emergency Provider Family Medicine; PCP Clinical Nurse Specialist Adult Health; Visit Provider Family Medicine
DX: T67.5XXA Heat exhaustion, unspecified, initial encounter (principal); X30.XXXA Exposure to excessive natural heat, initial encounter; E86.0 Dehydration; E87.29 Other acidosis; Z79.01 Long term (current) use of anticoagulants; Z86.79 Personal history of other diseases of the circulatory system; E03.9 Hypothyroidism, unspecified; Z87.19 Personal history of other diseases of the digestive system; E11.9 Type 2 diabetes mellitus without complications; J44.9 Chronic obstructive pulmonary disease, unspecified; R19.7 Diarrhea, unspecified; K21.9 Gastro-esophageal reflux disease without esophagitis; G47.33 Obstructive sleep apnea (adult) (pediatric); E78.5 Hyperlipidemia, unspecified; I10 Essential (primary) hypertension; M06.9 Rheumatoid arthritis, unspecified
CPT/HCPCS: 36415; 71045; 80053; 80061; 80306; 80307; 81001; 82009; 82550; 83605; 83690; 83735; 83880; 84100; 84145; 84443; 85025; 86140; 87086; 93005; 94664; 96361; 96374; 99285; G0378; J2405; J7030; J9999

== ENCOUNTER → 2025-03-06 12:06 | Outpatient (BNVA) | payer MEDICARE, MEDICAID, SELFPAY | PROVIDERS: PCP Clinical Nurse Specialist Adult Health; Visit Provider Clinical Nurse Specialist Adult Health | DX: N17.9 Acute kidney failure, unspecified (principal); E86.0 Dehydration | CPT/HCPCS: 80048 ==

== ENCOUNTER 2025-06-28 23:46 | Inpatient (IN) | payer MEDICARE, MEDICAID, SELFPAY ==
[2025-06-28 23:46] VITALS: BP 135/83; PULSE 64; RESP 16; TEMP 36.5; O2SAT 91; BMI 39.1
[2025-06-29] VITALS (16 sets, daily range): BP systolic 124–177; BP diastolic 72–104; PULSE 73–131; RESP 16–18; TEMP 36.7–37.7; O2SAT 90–95; BMI 39.1
--- NOTE | 2025-06-29 00:06 | XRR_ITS ---
PROCEDURE INFORMATION: Exam: XR Chest Exam date and time: 06/29/2025 12:12 AM Age: 70 years old Clinical indication: Shortness of breath TECHNIQUE: Imaging protocol: Radiologic exam of the chest. Views: 1 view. COMPARISON: CR (CHEST, ) 03/04/2025 4:52 PM FINDINGS: Lungs: Unremarkable. No consolidation. Pleural spaces: Unremarkable. No pleural effusion. No pneumothorax. Heart/Mediastinum: Unremarkable. No cardiomegaly. Bones/joints: Unremarkable. XR/XR chest 1V portable [id number] IMPRESSION: No acute findings.
--- NOTE | 2025-06-29 00:13 | CTR_ITS ---
PROCEDURE INFORMATION: Exam: CT Abdomen And Pelvis With Contrast Exam date and time: 06/29/2025 1:16 AM Age: 70 years old Clinical indication: Abdominal pain; Additional info: Abdominal pain, biliary colic TECHNIQUE: Imaging protocol: Computed tomography of the abdomen and pelvis with contrast. Radiation optimization: All CT scans at this facility use at least one of these dose optimization techniques: automated exposure control; mA and/or kV adjustment per patient size (includes targeted exams where dose is matched to clinical indication); or iterative reconstruction. Contrast material: OMNI 350; Contrast volume: 100 ml; Contrast route: INTRAVENOUS (IV); COMPARISON: CT chest abdpel w/*[id number] 12/26/2024 12:07 PM RADIATION DOSE METRICS: Total DLP (mGy-cm): 1358.64 FINDINGS: Liver: Normal. No mass. Gallbladder and biliary ducts: Normal. No calcified stones. No ductal dilation. Pancreas: Moderate edema surrounding the pancreas, concerning for pancreatitis. Pancreatitis was also identified on 12/26/2024. Spleen: Normal. No splenomegaly. Adrenal glands: Normal. No mass. Kidneys and ureters: Normal. No hydronephrosis. Stomach and bowel: Reactive wall thickening of the duodenal. Diverticulosis, without acute diverticulitis. No small bowel obstruction. No free air. Appendix: No evidence of appendicitis. Intraperitoneal space: See Stomach and bowel finding. Vasculature: HysterectomyAtherosclerotic changes of the aorta. Lymph nodes: Unremarkable. No enlarged lymph nodes. Urinary bladder: Unremarkable as visualized. Reproductive: Unremarkable as visualized. Bones/joints: Degenerative changes of the spine. Soft tissues: Unremarkable. CT/CT abdomen pelvis w con* [id number] IMPRESSION: 1. Moderate edema surrounding the pancreas, concerning for pancreatitis. 2. Diverticulosis, without acute diverticulitis. No small bowel obstruction. No free air.
--- NOTE | 2025-06-29 00:14 | W.ED.ABDPA2 ---
Documented by User: LORENZA Puentes 06/29/25 13:51 HPI - Abdominal Pain General: Chief Complaint: Abdominal Pain Stated Complaint: abdomen pain Time Seen by Provider: 06/28/25 23:53 History of Present Illness: Patient is a 70-year-old female with history of A-fib on Eliquis, Cardizem, metoprolol, HTN, hypothyroidism, presents to the emergency room with nausea, vomiting, and epigastric right upper quadrant abdominal pain that started at 1730 today. Patient did have recent food intake. She has had refractory nausea and vomiting at home. Patient has history of pancreatitis, with biliary source, 12/2024, requiring surgical consultation. Patient was planning on having cholecystectomy post Thanksgi. She stated this was more abrupt onset nature. No change in her stool. She has had nausea and vomiting of bilious nature multiple times. Associated Symptoms: Reports nausea and vomiting; Denies change in stool character, chills and fever(s) Related Data Home Medications ?Medication ?Instructions ?Recorded ?Confirmed allopurinol 300 mg tablet 300 mg PO QPM 12/20/24 06/29/25 diltiazem HCl 300 mg capsule,24 300 mg PO QAM 12/20/24 06/29/25 hr,extended release levothyroxine 75 mcg capsule 75 mcg PO QAM 12/20/24 06/29/25 lisinopril 20 mg tablet 20 mg PO QAM 12/20/24 06/29/25 Held on 03/05/25. Instructions: Resume on 03/08/25. montelukast 10 mg tablet 10 mg PO BEDTIME 12/20/24 06/29/25 (Singulair) multivitamin 1 tab PO QAM 12/20/24 06/29/25 Previous Rx's ?Medication ?Instructions ?Recorded apixaban 5 mg tablet (Eliquis) 5 mg PO BID #60 tabs 09/26/24 atorvastatin 20 mg tablet 20 mg PO BEDTIME #30 tabs 09/26/24 Nebulizer machine and supplies #1 ea 01/05/25 mometasone-formoterol HFA 100 2 puff inhalation BID #13 grams 03/01/25 mcg-5 mcg/actuation aerosol inhaler (Dulera) metoprolol succinate 25 mg 25 mg PO DAILY #30 tabs 05/10/25 tablet,extended release 24 hr Allergies Allergy/AdvReac Type Severity Reaction Status Date / Time azithromycin Allergy Unknown Verified 06/28/25 23:53 blueberry Allergy ALGY-Anaphy Verified 06/16/25 19:13 laxis Review of Systems General: Reports: 10 or more systems reviewed and unremarkable except in HPI and below Const: Denies: fever(s) or chills ENMT: Denies: throat pain or hoarseness Card: Denies: chest pain or palpitations Resp: Denies: dyspnea or productive cough GI: Reports: abdominal pain, nausea and vomiting; Denies: change in stool character : Denies: flank pain or difficulty voiding Musc: Denies: neck pain or back pain Skin/Breast: Denies: rash or pruritus Neuro: Denies: headache(s) or numbness in extremities Psych: Denies: anxiety or depression PFSH ED PFSH: Medical History (Updated 06/29/25 @ 04:39 by Adriel Howell MD) Enrolled in chronic care management MARYCARMEN (obstructive sleep apnea) hx of diagnosed marycarmen, not on cpap Hypothyroidism Chronic anticoagulation Chronic gout Hyperlipidemia Essential hypertension Type 2 diabetes mellitus Chronic obstructive pulmonary disease, unspecified COPD type Atrial fibrillation Osteoarthritis Rheumatoid arthritis Surgical History Hx of goiter hx of goiter excision Hx of local excision of skin lesion left foot skin cancer removed Hx of tooth extraction Hx of hysterectomy, total had a plasma reaction when she had her hysterectomy. Was told to avoid future surgeries due to this reaction. 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 Physical Exam Const: COMMON NORMALS: average body habitus, patient oriented x3, no limitations, healthy appearing, alert and well nourished HENMT: COMMON NORMALS: normocephalic and atraumatic HEAD & SCALP: normocephalic and atraumatic Eye: COMMON NORMALS: Equal, round and reactive pupils present, EOMs intact bilaterally, conjunctivae normal and no scleral icterus CONJUNCTIVA: Yes conjunctivae normal PUPIL: Yes Equal, round and reactive pupils present Lymph: LYMPHATIC: no lymphadenopathy noted Chest: COMMONS NORMALS: normal inspection of the chest and normal palpation of entire chest wall Resp: COMMON NORMALS: normal respiratory effort, No retractions, No use of accessory muscles and percussion normal AUSCULTATION: rales bilateral (bases) PERCUSSION: percussion normal Cardio: COMMON NORMALS: regular rate and regular rhythm RATE: regular rate RHYTHM: regular rhythm GI: COMMON NORMALS: Soft to palpation AUSCULTATION: Yes normoactive bowel sounds PALPATION: Yes Soft to palpation, Yes Tenderness to palpation present (GI) Details: LLQ, RLQ, LUQ and RUQ and Yes Guarding due to palpation present (GI) in the RUQ ( positive Cartwright's) RECTAL EXAM: deferred : COMMON NORMALS: Yes no CVA tenderness BLADDER/KIDNEY EXAM: Yes no CVA tenderness Back/Pelvis: COMMON NORMALS: no CVA tenderness Extremity: COMMON NORMALS: normal to inspection, full ROM and capillary refill normal Neuro: COMMON NORMALS: patient oriented x3 SENSORIUM/ORIENTATION: Yes alert Psych: COMMON NORMALS: mental status grossly normal, Normal thought process present, cooperative, normal affect and speech normal SPEECH: Yes normal speech THOUGHT PROCESS: Normal thought process present Course Vital Signs: Vital signs: Vital Signs Temperature 98.4 F 06/29/25 12:00 Pulse Rate 131 H 06/29/25 12:00 Respiratory Rate 18 06/29/25 12:00 Blood Pressure 165/97 06/29/25 12:00 Pulse Oximetry 93 06/29/25 11:35 Oxygen Delivery Me thod Room Air 06/29/25 06:37 MDM - Abdominal Pain Medical Decision Making patient 70-year-old female with history of biliary colic, pancreatitis, 01/08/2025 that presents to the emergency room with abrupt onset of nausea, vomiting, diffuse abdominal pain, and guarding in right upper quadrant with positive Cartwright sign. Lipase is pending. She does have some mildly elevated LFTs. WBC is 17.5. She has ongoing nausea and vomiting despite Zofran 4 mg. Lactic acid is also elevated. She was given 1 L IV fluid, will go ahead and give her an additional liter, check CT of abdomen and pelvis with contrast. Discussed the case with attending, Dr. Drake; who will take over care. Medical Records I reviewed the patient's medical records. Lab Data I reviewed the patient's lab results. 06/28/25 23:55 06/28/25 23:55 Labs/Radiology: Radiology Impressions Chest X-Ray 06/29/25 00:06 IMPRESSION: No acute findings. Abdomen/Pelvis CT 06/29/25 00:13 IMPRESSION: 1. Moderate edema surrounding the pancreas, concerning for pancreatitis. 2. Diverticulosis, without acute diverticulitis. No small bowel obstruction. No free air. Gallbladder Ultrasound 06/29/25 04:39 IMPRESSION: 1. Cholelithiasis with mild gallbladder wall thickening may be related to hepatocellular disease. No pericholecystic fluid. 2. Normal common bile duct. 3. By ultrasound pancreas is unremarkable. 4. Moderate hepatomegaly. Laboratory Results WBC 17.53 10^3/uL (3.29-11.43) H 06/28/25 23:55 RBC 4.68 10^6/uL (3.85-5.65) 06/28/25 23:55 Hgb 14.00 g/dL (11.27-16.99) 06/28/25 23:55 Hct 41.5 % (36-47) 06/28/25 23:55 MCV 88.7 fl (85-98) 06/28/25 23:55 MCH 29.9 pg (27-33) 06/28/25 23:55 MCHC 33.7 g/dL (30-55) 06/28/25 23:55 RDW 13.2 % (12.1-15.1) 06/28/25 23:55 Plt Count 224 10^3/cmm (157-399) 06/28/25 23:55 MPV 10.8 fL (7.4-10.4) H 06/28/25 23:55 Neut % (Auto) 82.5 % 06/28/25 23:55 Lymph % (Auto) 11.5 % 06/28/25 23:55 [place] % (Auto) 4.8 % 06/28/25 23:55 Eos % (Auto) 0.6 % 06/28/25 23:55 Baso % (Auto) 0.2 % 06/28/25 23:55 Neut # (Auto) 14.44 10^3/uL (1.8-7.7) H 06/28/25 23:55 Lymph # (Auto) 2.0 10^3/uL (0.8-4.8) 06/28/25 23:55 [place] # (Auto) 0.9 10^3/uL (0.2-0.9) 06/28/25 23:55 Eos # (Auto) 0.1 10^3/uL (0.0-0.8) 06/28/25 23:55 Baso # (Auto) 0.0 10^3/uL (0.0-0.1) 06/28/25 23:55 Nucleated RBC % (auto) 0 % 06/28/25 23:55 Nucleated RBCs # 0.0 /100WBC 06/28/25 23:55 Sodium 139 mmol/L (136-145) 06/28/25 23:55 Potassium 3.9 mmol/L (3.5-5.1) 06/28/25 23:55 Chloride 99 mmol/L (98-107) 06/28/25 23:55 Carbon Dioxide 24 mmol/L (22-29) 06/28/25 23:55 Anion Gap 19.9 (5-19) H 06/28/25 23:55 BUN 24 mg/dL (8-23) H 06/28/25 23:55 Creatinine 1.0 mg/dL (0.5-0.9) H 06/28/25 23:55 GFR Calculation 54.8 mL/min (90-130) L 06/28/25 23:55 Glucose 192 mg/dL (65-115) H 06/28/25 23:55 Estimat Average Glucose 108 06/28/25 23:55 Hemoglobin A1c 5.4 % (4.0-6.0) 06/28/25 23:55 Calculated Osmolality 297 mOsm/kg (285-295) H 06/28/25 23:55 Lactic Acid 2.9 mmol/L (0.5-2.2) H 06/28/25 23:55 Lactic Acid (Sepsis) 3.3 mmol/L (0.5-2.2) H 06/29/25 03:13 Calcium 9.6 mg/dL (8.5-10.5) 06/28/25 23:55 Magnesium 1.8 mg/dL (1.7-2.3) 06/28/25 23:55 Total Bilirubin 0.9 mg/dL (0.15-1.2) 06/28/25 23:55 AST 194 U/L (0-32) H 06/28/25 23:55 ALT 112 U/L (0-33) H 06/28/25 23:55 Alkaline Phosphatase 132 U/L (35-105) H 06/28/25 23:55 Total Protein 7.0 g/dL (6.6-8.7) 06/28/25 23:55 Albumin 4.1 g/dL (3.5-5.2) 06/28/25 23:55 Globulin 2.9 g/dL (1.3-4.6) 06/28/25 23:55 Triglycerides 65 mg/dL (0-150) 06/29/25 05:00 Cholesterol 134 mg/dL (0-200) 06/29/25 05:00 LDL Cholesterol, Calc 64 mg/dL (50-129) 06/29/25 05:00 HDL Cholesterol 57 mg/dL (60-100) L 06/29/25 05:00 LDL/HDL Ratio 1.12 RATIO (0.00-3.22) 06/29/25 05:00 Cholesterol/HDL Ratio 2.35 mg/dL (0.0-4.40) 06/29/25 05:00 Lipase > 27405 U/L (13-60) H 06/28/25 23:55 Procalcitonin 0.30 ng/mL (0-0.5) 06/29/25 05:00 TSH 2.26 uIU/mL (0.27-4.20) 06/29/25 05:00 ED provider radiology interpretation(s): Pending Discharge Plan Discharge Patient Disposition: Admitted As Inpatient Admit Provider: Adriel Howell Clinical Impression: Acute biliary pancreatitis Qualifiers: Acute pancreatitis complication: no infection or necrosis Qualified Code(s): K85.10 - Biliary acute pancreatitis without necrosis or infection Condition: Stable Coding Level of Care Code ED Boilermaker for Chg Fwd Documented by User: Anat Drake MD 06/29/25 01:54 HPI - Abdominal Pain General: Chief Complaint: Abdominal Pain Stated Complaint: abdomen pain Time Seen by Provider: 06/28/25 23:53 Related Data Home Medications ?Medication ?Instructions ?Recorded ?Confirmed allopurinol 300 mg tablet 300 mg PO QPM 12/20/24 06/29/25 diltiazem HCl 300 mg capsule,24 300 mg PO QAM 12/20/24 06/29/25 hr,extended release levothyroxine 75 mcg capsule 75 mcg PO QAM 12/20/24 06/29/25 lisinopril 20 mg tablet 20 mg PO QAM 12/20/24 06/29/25 Held on 03/05/25. Instructions: Resume on 03/08/25. montelukast 10 mg tablet 10 mg PO BEDTIME 12/20/24 06/29/25 (Singulair) multivitamin 1 tab PO QAM 12/20/24 06/29/25 Previous Rx's ?Medication ?Instructions ?Recorded apixaban 5 mg tablet (Eliquis) 5 mg PO BID #60 tabs 09/26/24 atorvastatin 20 mg tablet 20 mg PO BEDTIME #30 tabs 09/26/24 Nebulizer machine and supplies #1 ea 01/05/25 mometasone-formoterol HFA 100 2 puff inhalation BID #13 grams 03/01/25 mcg-5 mcg/actuation aerosol inhaler (Dulera) metoprolol succinate 25 mg 25 mg PO DAILY #30 tabs 05/10/25 tablet,extended release 24 hr Allergies Allergy/AdvReac Type Severity Reaction Status Date / Time azithromycin Allergy Unknown Verified 06/28/25 23:53 blueberry Allergy ALGY-Anaphy Verified 06/16/25 19:13 laxis PFSH ED PFSH: Medical History (Updated 06/29/25 @ 04:39 by Adriel Howell MD) Enrolled in chronic care management MARYCARMEN (obstructive sleep apnea) hx of diagnosed marycarmen, not on cpap Hypothyroidism Chronic anticoagulation Chronic gout Hyperlipidemia Essential hypertension Type 2 diabetes mellitus Chronic obstructive pulmonary disease, unspecified COPD type Atrial fibrillation Osteoarthritis Rheumatoid arthritis Surgical History Hx of goiter hx of goiter excision Hx of local excision of skin lesion left foot skin cancer removed Hx of tooth extraction Hx of hysterectomy, total had a plasma reaction when she had her hysterectomy. Was told to avoid future surgeries due to this reaction. 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 Lipase is pending. She does have some mildly elevated LFTs. WBC is 17.5. She has ongoing nausea and vomiting despite Zofran 4 mg. Lactic acid is also elevated. She was given 1 L IV fluid, will go ahead and give her an additional liter, check CT of abdomen and pelvis with contrast. Discussed the case with attending, Dr. Drake; who will take over care. ATTENDING PHYSICIAN ATTESTATION: I, Anat Drake MD, have provided a substantive portion of the care for this patient. I have personally evaluated this patient, performed an independent history, physical exam, reviewed labwork, imaging, and agree with the plan of care as hereby documented by JOAO. MDM: HPI: Patient is a 70-year-old female with a past medical history significant for atrial fibrillation on Eliquis, COPD, diabetes, heart blood pressure, high cholesterol, hypothyroidism, obstructive sleep apnea presents with a chief complaint of epigastric and right upper quadrant abdominal pain associated with nausea and vomiting starting this evening. Patient has not had a fever and denies chest pain or shortness of breath. She has not suffered from a cough, hemoptysis or syncope and denies any lower extremity swelling. Patient denies any urinary symptoms such as dysuria or hematuria. Denies diarrhea. She states that she was supposed to have cholecystectomy during previous episode of acute cholecystitis but this was postponed. EXAM: Vital signs were reviewed. Patient is alert and oriented. Patient is breathing comfortably, no increased WOB or accessory muscle use. SpO2 is above 95% on RA. Patient has clear lungs b/l, no rhonchi, wheezing or crackles.+ Heart murmur. No hypotension or tachycardia. Abdomen is soft, nondistended. +Tenderness in the epigastrium, RUQ, +Cartwright's sign. Patient is moving all extremities, no deformity or gross injury. No lower extremity edema or asymmetry. I reviewed patient's lab work. She has an elevated white blood cell count of 17 and elevated lactic acid. Patient is not anemic. Patient continues to have adequate kidney function. LFTs are mildly elevated as is alk phos. Lipase is 15,000; consistent w/pancreatitis. Though there are no stones and CT does not show evidence of cholecystitis, she was treated w/Zosyn given elevated WBC and LFTs CT: IMPRESSION: 1. Moderate edema surrounding the pancreas, concerning for pancreatitis. 2. Diverticulosis, without acute diverticulitis. No small bowel obstruction. No free air. Patient may benefit from Gallbladder US, surgical consultation. Admitted for symptomatic care for acute pancreatitis. Lab Data 06/28/25 23:55 06/28/25 23:55 Labs/Radiology: Radiology Impressions Chest X-Ray 06/29/25 00:06 IMPRESSION: No acute findings. Abdomen/Pelvis CT 06/29/25 00:13 IMPRESSION: 1. Moderate edema surrounding the pancreas, concerning for pancreatitis. 2. Diverticulosis, without acute diverticulitis. No small bowel obstruction. No free air. Gallbladder Ultrasound 06/29/25 04:39 IMPRESSION: 1. Cholelithiasis with mild gallbladder wall thickening may be related to hepatocellular disease. No pericholecystic fluid. 2. Normal common bile duct. 3. By ultrasound pancreas is unremarkable. 4. Moderate hepatomegaly. Laboratory Results WBC 17.53 10^3/uL (3.29-11.43) H 06/28/25 23:55 RBC 4.68 10^6/uL (3.85-5.65) 06/28/25 23:55 Hgb 14.00 g/dL (11.27-16.99) 06/28/25 23:55 Hct 41.5 % (36-47) 06/28/25 23:55 MCV 88.7 fl (85-98) 06/28/25 23:55 MCH 29.9 pg (27-33) 06/28/25 23:55 MCHC 33.7 g/dL (30-55) 06/28/25 23:55 RDW 13.2 % (12.1-15.1) 06/28/25 23:55 Plt Count 224 10^3/cmm (157-399) 06/28/25 23:55 MPV 10.8 fL (7.4-10.4) H 06/28/25 23:55 Neut % (Auto) 82.5 % 06/28/25 23:55 Lymph % (Auto) 11.5 % 06/28/25 23:55 [place] % (Auto) 4.8 % 06/28/25 23:55 Eos % (Auto) 0.6 % 06/28/25 23:55 Baso % (Auto) 0.2 % 06/28/25 23:55 Neut # (Auto) 14.44 10^3/uL (1.8-7.7) H 06/28/25 23:55 Lymph # (Auto) 2.0 10^3/uL (0.8-4.8) 06/28/25 23:55 [place] # (Auto) 0.9 10^3/uL (0.2-0.9) 06/28/25 23:55 Eos # (Auto) 0.1 10^3/uL (0.0-0.8) 06/28/25 23:55 Baso # (Auto) 0.0 10^3/uL (0.0-0.1) 06/28/25 23:55 Nucleated RBC % (auto) 0 % 06/28/25 23:55 Nucleated RBCs # 0.0 /100WBC 06/28/25 23:55 Sodium 139 mmol/L (136-145) 06/28/25 23:55 Potassium 3.9 mmol/L (3.5-5.1) 06/28/25 23:55 Chloride 99 mmol/L (98-107) 06/28/25 23:55 Carbon Dioxide 24 mmol/L (22-29) 06/28/25 23:55 Anion Gap 19.9 (5-19) H 06/28/25 23:55 BUN 24 mg/dL (8-23) H 06/28/25 23:55 Creatinine 1.0 mg/dL (0.5-0.9) H 06/28/25 23:55 GFR Calculation 54.8 mL/min (90-130) L 06/28/25 23:55 Glucose 192 mg/dL (65-115) H 06/28/25 23:55 Estimat Average Glucose 108 06/28/25 23:55 Hemoglobin A1c 5.4 % (4.0-6.0) 06/28/25 23:55 Calculated Osmolality 297 mOsm/kg (285-295) H 06/28/25 23:55 Lactic Acid 2.9 mmol/L (0.5-2.2) H 06/28/25 23:55 Lactic Acid (Sepsis) 3.3 mmol/L (0.5-2.2) H 06/29/25 03:13 Calcium 9.6 mg/dL (8.5-10.5) 06/28/25 23:55 Magnesium 1.8 mg/dL (1.7-2.3) 06/28/25 23:55 Total Bilirubin 0.9 mg/dL (0.15-1.2) 06/28/25 23:55 AST 194 U/L (0-32) H 06/28/25 23:55 ALT 112 U/L (0-33) H 06/28/25 23:55 Alkaline Phosphatase 132 U/L (35-105) H 06/28/25 23:55 Total Protein 7.0 g/dL (6.6-8.7) 06/28/25 23:55 Albumin 4.1 g/dL (3.5-5.2) 06/28/25 23:55 Globulin 2.9 g/dL (1.3-4.6) 06/28/25 23:55 Triglycerides 65 mg/dL (0-150) 06/29/25 05:00 Cholesterol 134 mg/dL (0-200) 06/29/25 05:00 LDL Cholesterol, Calc 64 mg/dL (50-129) 06/29/25 05:00 HDL Cholesterol 57 mg/dL (60-100) L 06/29/25 05:00 LDL/HDL Ratio 1.12 RATIO (0.00-3.22) 06/29/25 05:00 Cholesterol/HDL Ratio 2.35 mg/dL (0.0-4.40) 06/29/25 05:00 Lipase > 09409 U/L (13-60) H 06/28/25 23:55 Procalcitonin 0.30 ng/mL (0-0.5) 06/29/25 05:00 TSH 2.26 uIU/mL (0.27-4.20) 06/29/25 05:00 All radiology interpretation(s) finalized by discharge Discharge Plan Discharge Patient Disposition: Admitted As Inpatient Admit Provider: Adriel Howell Clinical Impression: Acute biliary pancreatitis Qualifiers: Acute pancreatitis complication: no infection or necrosis Qualified Code(s): K85.10 - Biliary acute pancreatitis without necrosis or infection Condition: Stable Coding Level of Care Code ED Boilermaker for Elis Carey
[2025-06-29 00:15] LABS: Hematocrit 41.5 % (36-47); Hemoglobin 14.00 g/dL (11.27-16.99); Mean Corpuscular HGB Conc 33.7 g/dL (30-55); Mean Corpuscular Hemoglobin 29.9 pg (27-33); Mean Corpuscular Volume 88.7 fl (85-98); Nucleated Red Blood Cells % 0 %; Platelet Count 224 10^3/cmm (157-399); Red Blood Count 4.68 10^6/uL (3.85-5.65); White Blood Count 17.53 10^3/uL (3.29-11.43)
--- NOTE | 2025-06-29 00:24 | ECG_ITS ---
[facility] Test Date: 2025-06-29 Pat Name: Priti Hurtado Department: Room: Gender: Female Website Project Manager: : 1955 Requested By: Prerna Merchant Order Number: [id number] Quyen MD: Ross Bianchi M.D. Measurements Intervals [place] Rate: 66 P: 44 GA: 147 QRS: -1 QRSD: 105 T: 4 QT: 419 QTc: 440 Interpretive Statements SINUS RHYTHM Compared to ECG 03/04/2025 17:06:10 No significant changes Electronically Signed On 06-30-2025 13:13:40 TELEPHONE COLLECTOR by Ross Bianchi M.D. [email or web address]
[2025-06-29 00:26] LABS: Alanine Aminotransferase 112 U/L (0-33); Albumin Level 4.1 g/dL (3.5-5.2); Alkaline Phosphatase 132 U/L (35-105); Anion Gap 19.9 (5-19); Aspartate Amino Transferase 194 U/L (0-32); Blood Urea Nitrogen 24 mg/dL (8-23); Calcium 9.6 mg/dL (8.5-10.5); Carbon Dioxide 24 mmol/L (22-29); Chloride 99 mmol/L (98-107); Globulin 2.9 g/dL (1.3-4.6); Glucose 192 mg/dL (65-115); Magnesium 1.8 mg/dL (1.7-2.3); Osmolality Calculated 297 mOsm/kg (285-295); Potassium 3.9 mmol/L (3.5-5.1); Sodium 139 mmol/L (136-145); Total Protein 7.0 g/dL (6.6-8.7)
[2025-06-29 00:27] LABS: Lactic Sepsis W/Reflex 2.9 mmol/L (0.5-2.2)
[2025-06-29] MEDS: morphine 4 mg/mL SDV 1 mL IVP (00:48)
[2025-06-29] MEDS: diphenhydrAMINE 50 mg/mL SDV 1mL 25 MG IVP (00:49)
[2025-06-29] MEDS: iohexol 350 mg/mL 500 mL Btl (per mL) IV (01:28)
[2025-06-29 02:03] LABS: Reflex Lactate Order REFLEX LACTIC ORDERD
[2025-06-29 03:49] LABS: Lactic Acid level (Lactate) 3.3 mmol/L (0.5-2.2)
[2025-06-29] MEDS: metoclopramide 5 mg/mL SDV 2 mL IVP ×3 (04:14→16:43)
--- NOTE | 2025-06-29 04:35 | PM.HP ---
Providers/Chief Complaint Primary Care Provider: Sudheer Ivy Chief Complaint: abdomen pain History of Present Illness Priti Hurtado is a 70 year old female with a past medical history of gallstone pancreatitis, atrial fibrillation, SVT, who presents [facility] due to abdominal pain, nausea, vomiting. Patient reports for the last 24 hours, she has had right upper quadrant abdominal pain, nausea, vomiting, no fevers, no chills, no lightheadedness, no dizziness, no alcoholism, she tells me that she saw GI in [facility] in [place] for consideration of cholecystectomy, they considered doing surgery in 6 to 8 weeks, however she was rehospitalized for dehydration, and did not follow-up, Review of Systems GI: Reports: abdominal pain, nausea and vomiting Medications/Allergies Home Medications ?Medication ?Instructions ?Recorded ?Confirmed ?Last Taken ?Type apixaban 5 mg tablet (Eliquis) 5 mg PO BID #60 tabs 09/26/24 06/16/25 03/04/25 20:00 Rx atorvastatin 20 mg tablet 20 mg PO BEDTIME #30 tabs 09/26/24 06/16/25 03/03/25 20:00 Rx allopurinol 300 mg tablet 300 mg PO QPM 12/20/24 06/16/25 03/04/25 20:00 History diltiazem HCl 300 mg capsule,24 300 mg PO QAM 12/20/24 06/16/25 03/04/25 08:00 History hr,extended release levothyroxine 75 mcg capsule 75 mcg PO QAM 12/20/24 06/16/25 03/04/25 08:00 History lisinopril 20 mg tablet 20 mg PO QAM 12/20/24 06/16/25 03/04/25 08:00 History Held on 03/05/25. Instructions: Resume on 03/08/25. montelukast 10 mg tablet 10 mg PO BEDTIME 12/20/24 06/16/25 03/03/25 20:00 History (Singulair) multivitamin 1 tab PO QAM 12/20/24 06/16/25 03/04/25 08:00 History Nebulizer machine and supplies #1 ea 01/05/25 06/16/25 Unknown Rx nystatin 100,000 unit/gram topical 1 applic topical BID #30 grams 01/27/25 06/16/25 03/04/25 20:00 Rx powder budesonide 0.5 mg/2 mL suspension 0.5 mg (2 mL) inhalation DAILY #60 03/01/25 06/16/25 03/04/25 08:00 Rx for nebulization mL mometasone-formoterol HFA 100 2 puff inhalation BID #13 grams 03/01/25 06/16/25 03/04/25 08:00 Rx mcg-5 mcg/actuation aerosol inhaler (Dulera) ondansetron 4 mg disintegrating 4 mg PO Q8H PRN Nausea 03/05/25 06/16/25 Unknown History tablet metoprolol succinate 25 mg 25 mg PO DAILY #30 tabs 05/10/25 06/16/25 Unknown Rx tablet,extended release 24 hr Allergies Allergy/AdvReac Type Severity Reaction Status Date / Time azithromycin Allergy Unknown Verified 06/28/25 23:53 blueberry Allergy ALGY-Anaphy Verified 06/16/25 19:13 laxis PFSH Acute PFSH: Medical History Enrolled in chronic care management MARYCARMEN (obstructive sleep apnea) hx of diagnosed marycarmen, not on cpap Hypothyroidism Chronic anticoagulation Chronic gout Hyperlipidemia Essential hypertension Type 2 diabetes mellitus Chronic obstructive pulmonary disease, unspecified COPD type Atrial fibrillation Osteoarthritis Rheumatoid arthritis Surgical History Hx of goiter hx of goiter excision Hx of local excision of skin lesion left foot skin cancer removed Hx of tooth extraction Hx of hysterectomy, total had a plasma reaction when she had her hysterectomy. Was told to avoid future surgeries due to this reaction. 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 Vitals/I&O/Wt Last Vital Signs Temp 97.7 F 06/28/25 23:46 Pulse 90 11/13/25 02:30 Resp 16 06/29/25 00:48 BP 172/93 06/29/25 02:30 Pulse Ox 94 06/29/25 02:30 O2 Del Method Room Air 06/29/25 02:30 Weight last 48 hrs Weight 113.398 kg Physical Exam Const: COMMON NORMALS: no acute distress and patient oriented x3 HENMT: COMMON NORMALS: normocephalic HEAD & SCALP: normocephalic Eye: COMMON NORMALS: Equal, round and reactive pupils present and EOMs intact bilaterally Resp: COMMON NORMALS: normal respiratory effort, No retractions, No use of accessory muscles and clear to auscultation bilaterally AUSCULTATION: clear to auscultation bilaterally Cardio: COMMON NORMALS: regular rate, regular rhythm, S1 normal heart sound present and S2 normal heart sound present RATE: regular rate RHYTHM: regular rhythm HEART SOUNDS: S1 normal heart sound present and S2 normal heart sound present GI: OTHER: Abdomen soft, diffusely tender, no guarding, no rebound, no rigidity Extremity: COMMON NORMALS: no calf tenderness and no pedal edema Neuro: COMMON NORMALS: patient oriented x3, CN's II-XII intact bilaterally and moves all extremities Data 06/28/25 23:55 06/28/25 23:55 A&P Assessment and plan 1. Type 2 diabetes mellitus: 2. Gallstone pancreatitis: Plan: Gallstone pancreatitis - CT/CT abdomen pelvis w con* [id number] IMPRESSION: 1. Moderate edema surrounding the pancreas, concerning for pancreatitis. 2. Diverticulosis, without acute diverticulitis. No small bowel obstruction. No free air. Plan - N.p.o. - Morphine for pain control - Zofran for nausea - IV Zosyn - Full code -Lovenox for DVT prophylaxis - Will have to consult general surgery in the morning Acute kidney injury, IV fluids Sepsis, secondary to gallstone pancreatitis -Blood cultures -IV Zosyn PDMP PDMP Reviewed: Not Reviewed Attestations Medical Necessity Statement*: Patient requires position, inpatient, greater than 2 midnights for gallstone pancreatitis Coding Level of Care Code Acute Code for [facility] Fwd Diagnoses Type 2 diabetes mellitus E11.9 Gallstone pancreatitis K85.10
--- NOTE | 2025-06-29 04:39 | US_ITS ---
WS: [id number] RIGHT UPPER QUADRANT ULTRASOUND HISTORY: ruq pain COMPARISON: 06/29/2025, 12/19/2024 Liver: 20.2 cm in length. Moderately enlarged liver heterogeneous liver. Cyst noted in the RIGHT lobe on the CT is not identified by ultrasound. Image quality is compromised by patient's body habitus. Portal Vein: Normal hepatopetal flow with monophasic waveform. Gallbladder: Normally distended gallbladder with mild wall thickening up to 7 mm. No pericholecystic fluid. Stones in the dependent gallbladder. CBD: 0.6 cm Pancreas: By ultrasound the pancreas is normal. No peripancreatic fluid collections. The edema noted on CT is not evident by ultrasound. Right kidney: 12.1 cm in length. Normal size and echogenicity. No hydronephrosis or mass. Aorta and IVC: Unremarkable abdominal aorta and IVC. No ascites. US/US gall bladder [id number] IMPRESSION: 1. Cholelithiasis with mild gallbladder wall thickening may be related to hepa tocellular disease. No pericholecystic fluid. 2. Normal common bile duct. 3. By ultrasound pancreas is unremarkable. 4. Moderate hepatomegaly.
[2025-06-29 05:39] LABS: Procalcitonin 0.30 ng/mL (0-0.5)
[2025-06-29 06:13] LABS: Lactic Sepsis W/Reflex 3.4 mmol/L (0.5-2.2)
[2025-06-29 06:17] LABS: Glucose Urine UA Negative (Normal); Nitrate Urine Negative (Negative)
[2025-06-29 06:18] LABS: Reflex Lactate Order REFLEX LACTIC ORDERD
[2025-06-29 06:25] LABS: Add Urine Microscopic? YES
[2025-06-29 06:29] LABS: Specific Gravity, Urine 1.068 (1.005-1.030)
--- NOTE | 2025-06-29 07:09 | PM.CONSULT ---
Providers/Reason For Consult Consulting Physician/Specialty*: General Surgery Reason for Consult*: Gallstone pancreatitis Attending Physician: Adriel Howell MD Primary Care Provider: Sudheer Ivy History of Present Illness History of Present Illness Priti Hurtado is a 70 year old female Admitted to the hospital with gallstone pancreatitis, she has history of recurrent gallstone pancreatitis. During last hospital stay she showed a lack of progression and was sent to [place] for evaluation by GI. During that admission she was seen by general surgery who had offered to remove her gallbladder in the outpatient setting but unfortunately patient failed to follow-up due to needing an additional hospital stay and now presents again with gallstone pancreatitis. Patient reports mid abdominal pain nausea and vomiting. Review of Systems General: Reports: 10 or more systems reviewed and unremarkable except in HPI and below Medications/Allergies Home Medications ?Medication ?Instructions ?Recorded ?Confirmed ?Last Taken ?Type apixaban 5 mg tablet (Eliquis) 5 mg PO BID #60 tabs 09/26/24 06/16/25 03/04/25 20:00 Rx atorvastatin 20 mg tablet 20 mg PO BEDTIME #30 tabs 09/26/24 06/16/25 03/03/25 20:00 Rx allopurinol 300 mg tablet 300 mg PO QPM 12/20/24 06/16/25 03/04/25 20:00 History diltiazem HCl 300 mg capsule,24 300 mg PO QAM 12/20/24 06/16/25 03/04/25 08:00 History hr,extended release levothyroxine 75 mcg capsule 75 mcg PO QAM 12/20/24 06/16/25 03/04/25 08:00 History lisinopril 20 mg tablet 20 mg PO QAM 12/20/24 06/16/25 03/04/25 08:00 History Held on 03/05/25. Instructions: Resume on 03/08/25. montelukast 10 mg tablet 10 mg PO BEDTIME 12/20/24 06/16/25 03/03/25 20:00 History (Singulair) multivitamin 1 tab PO QAM 12/20/24 06/16/25 03/04/25 08:00 History Nebulizer machine and supplies #1 ea 01/05/25 06/16/25 Unknown Rx nystatin 100,000 unit/gram topical 1 applic topical BID #30 grams 01/27/25 06/16/25 03/04/25 20:00 Rx powder budesonide 0.5 mg/2 mL suspension 0.5 mg (2 mL) inhalation DAILY #60 03/01/25 06/16/25 03/04/25 08:00 Rx for nebulization mL mometasone-formoterol HFA 100 2 puff inhalation BID #13 grams 03/01/25 06/16/25 03/04/25 08:00 Rx mcg-5 mcg/actuation aerosol inhaler (Dulera) ondansetron 4 mg disintegrating 4 mg PO Q8H PRN Nausea 03/05/25 06/16/25 Unknown History tablet metoprolol succinate 25 mg 25 mg PO DAILY #30 tabs 05/10/25 06/16/25 Unknown Rx tablet,extended release 24 hr Allergies Allergy/AdvReac Type Severity Reaction Status Date / Time azithromycin Allergy Unknown Verified 06/28/25 23:53 blueberry Allergy ALGY-Anaphy Verified 06/16/25 19:13 laxis PFSH Acute PFSH: Medical History (Updated 06/29/25 @ 04:39 by Adriel Howell MD) Enrolled in chronic care management MARYCARMEN (obstructive sleep apnea) hx of diagnosed marycarmen, not on cpap Hypothyroidism Chronic anticoagulation Chronic gout Hyperlipidemia Essential hypertension Type 2 diabetes mellitus Chronic obstructive pulmonary disease, unspecified COPD type Atrial fibrillation Osteoarthritis Rheumatoid arthritis Surgical History Hx of goiter hx of goiter excision Hx of local excision of skin lesion left foot skin cancer removed Hx of tooth extraction Hx of hysterectomy, total had a plasma reaction when she had her hysterectomy. Was told to avoid future surgeries due to this reaction. 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 Acute biliary pancreatitis: 2. Gallstone pancreatitis: Plan: Patient admitted with severe gallstone pancreatitis with elevated white count, lipase of 15,000 and elevated lactate level. Does not appear to have current acute cholecystitis at this time. I do agree patient will require cholecystectomy in the near future. At this point we should continue aggressive management of gallstone pancreatitis and once gallstone pancreatitis resolves we can plan for Laparoscopic cholecystectomy in the elective setting. In the case of poor progression another evaluation by gastroenterology should be considered as her lipase level is extremely elevated.All other management per primary PDMP PDMP Reviewed: Not Reviewed Coding Level of Care Code Acute Code for [facility] Fwd Diagnoses Acute biliary pancreatitis K85.10 Gallstone pancreatitis K85.10
[2025-06-29 07:13] LABS: Estmated Average Glucose 108; Hemoglobin A1C 5.4 % (4.0-6.0)
[2025-06-29 07:16] LABS: Cholesterol 134 mg/dL (0-200); HDL Cholesterol 57 mg/dL (60-100); Thyroid Stimulating Hormone 2.26 uIU/mL (0.27-4.20); Triglycerides 65 mg/dL (0-150)
[2025-06-29] MEDS: piperacillin-tazobactam 3.375 GM in sodium chloride 0.9% (plus) 50 ML IV ×3 (07:24→22:51)
[2025-06-29] MEDS: pantoprazole 40 mg SDV IVP ×2 (07:24→16:43)
[2025-06-29 09:16] LABS: Lactic Acid level (Lactate) 2.1 mmol/L (0.5-2.2)
[2025-06-29] MEDS: metoprolol succinate ER (24 HR) 25 mg Tablet PO (09:20)
[2025-06-29] MEDS: dilTIAZem ER (24HR) 300 mg Capsule PO (09:20)
--- NOTE | 2025-06-29 09:45 | PM.MISC ---
Miscellaneous Note Purpose of Documentation: Patient seen briefly this morning on the medical floor. She is a 70-year-old female who was admitted early this morning because of complaint of abdominal pain. Imaging results showed apparent Acute peritonitis, with remarkably elevated lipase. She reports doing much better today. On Exam: Awake and alert patient. No acute distress. Further evaluation deferred at this time. Intervention: The H&P of the admitting physician reviewed. Current orders and management plans also reviewed. I agree with the current orders. Patient already reviewed by the general surgeon, who recommends continued conservative approach Nothing to change at this time from my standpoint
[2025-06-29] MEDS: ondansetron 2 mg/ML SDV 2 mL 4 MG IVP ×2 (11:12→23:08)
[2025-06-30] VITALS (8 sets, daily range): BP systolic 128–149; BP diastolic 60–83; PULSE 61–126; RESP 17–22; TEMP 36.8–37.4; O2SAT 89–90
[2025-06-30 05:13] LABS: Hematocrit 43.0 % (36-47); Hemoglobin 14.20 g/dL (11.27-16.99); Mean Corpuscular HGB Conc 33.0 g/dL (30-55); Mean Corpuscular Hemoglobin 30.3 pg (27-33); Mean Corpuscular Volume 91.9 fl (85-98); Nucleated Red Blood Cells % 0 %; Platelet Count 217 10^3/cmm (157-399); Red Blood Count 4.68 10^6/uL (3.85-5.65); White Blood Count 23.73 10^3/uL (3.29-11.43)
[2025-06-30 05:36] LABS: Alanine Aminotransferase 302 U/L (0-33); Albumin Level 3.3 g/dL (3.5-5.2); Alkaline Phosphatase 131 U/L (35-105); Anion Gap 15.8 (5-19); Aspartate Amino Transferase 165 U/L (0-32); Blood Urea Nitrogen 24 mg/dL (8-23); Calcium 7.8 mg/dL (8.5-10.5); Carbon Dioxide 24 mmol/L (22-29); Chloride 104 mmol/L (98-107); Globulin 2.5 g/dL (1.3-4.6); Glucose 158 mg/dL (65-115); Magnesium 1.9 mg/dL (1.7-2.3); Osmolality Calculated 297 mOsm/kg (285-295); Potassium 3.8 mmol/L (3.5-5.1); Sodium 140 mmol/L (136-145); Total Protein 5.8 g/dL (6.6-8.7)
[2025-06-30] MEDS: piperacillin-tazobactam 3.375 GM in sodium chloride 0.9% (plus) 50 ML IV ×3 (05:41→21:45)
[2025-06-30] MEDS: dilTIAZem ER (24HR) 300 mg Capsule PO (05:42)
[2025-06-30] MEDS: pantoprazole 40 mg SDV IVP (05:42)
[2025-06-30] MEDS: metoprolol succinate ER (24 HR) 25 mg Tablet PO (05:42)
[2025-06-30 05:44] LABS: Lipase 1116 U/L (13-60)
--- NOTE | 2025-06-30 08:05 | P.PN_ITS ---
Subjective 2 Subjective: This a 70-year-old female admitted with acute gallstone pancreatitis. Clinically improving feeling better no significant nausea or vomiting, abdominal pain is mainly in the lower abdomen. Vitals/I&O/Wt Last Vital Signs Temp 98.3 F 06/30/25 03:58 Pulse 105 H 06/30/25 06:00 Resp 17 06/30/25 03:58 BP 131/60 06/30/25 03:58 Pulse Ox 90 06/30/25 03:58 O2 Del Method Room Air 06/30/25 03:58 06/29/25 06/30/25 06/30/25 22:59 06:59 14:59 Intake Total 1050 / 3068.75 Balance 1050 / 3068.75 Weight last 48 hrs Weight 249 lb Weight 250 lb Weight 250 lb Physical Exam 2 GI: OTHER: Abdomen is soft there is no tenderness in the upper abdomen, no tenderness in the right upper quadrant. Data 06/30/25 04:47 06/30/25 04:47 A&P Assessment and plan 1. Acute biliary pancreatitis: 2. Gallstone pancreatitis: Plan: This a 70-year-old female presenting with a second episode of acute gallstone pancreatitis. No evidence of acute cholecystitis during this admission. Clinical progression appears to be good although there is elevation of the white count today trended up from 17-23. And she is mildly tachycardic. Her lipase has trended down from 15,000-1100. From the surgical standpoint there is no plan for surgical intervention during this hospital stay. While patient will benefit from laparoscopic cholecystectomy in the near future, cholecystectomy is not indicated during the same hospital stay in patients with moderate to severe pancreatitis due to significant active intra-abdominal inflammation,. As evidenced by a CT showing significant peripancreatic edema as well as some free fluid in the mid abdomen. I have educated the patient that she does need to have her gallbladder removed, last time unfortunately she decided to postpone the surgery multiple times due to social reasons, I have explained to the patient that she most likely will have recurrent symptoms if we do not schedule her cholecystectomy in the near future. She shows understanding and agrees. I will defer management of the pancreatitis to medical team, I will like to put to the consideration of the medical team the possible need for evaluation by GI specialist in the case of continuous worsening of the white count or worsening of the pancreatitis as she might need endoluminal evaluation and stent placement. From the general surgery standpoint there is no contraindication to advance diet as tolerated at least to a full liquid diet. PDMP PDMP Reviewed: Not Reviewed Attestations 2 Medical Necessity Statement*: Per medical team Coding Level of Care Code Acute Code for [facility] Fwd Diagnoses Acute biliary pancreatitis K85.10 Gallstone pancreatitis K85.10
--- NOTE | 2025-06-30 11:16 | PM.PN ---
Subjective Subjective: Patient patient is seen again this morning on the medical floor. She reports remarkable decrease in abdominal pain. She denies any fever, headache, nausea, vomiting, or any new GI symptoms. She is currently tolerating ice chips, requesting facility to eat. Medications: Medication Review Details: Still on IV fluid, and other as needed medications Vitals/I&O/Wt Last Vital Signs Temp 98.2 F 06/30/25 11:06 Pulse 108 H 06/30/25 11:06 Resp 20 H 06/30/25 11:06 BP 140/83 06/30/25 11:06 Pulse Ox 90 06/30/25 11:06 O2 Del Method Room Air 06/30/25 11:06 06/29/25 06/30/25 06/30/25 22:59 06:59 14:59 Intake Total 1050 / 3068.75 50 / 50 Balance 1050 / 3068.75 50 / 50 Weight last 48 hrs Weight 112.945 kg Weight 113.398 kg Weight 113.398 kg Physical Exam Narrative: General: Awake and alert. No obvious respiratory distress. Neuro/Psych: Cooperative. Oriented x 3 Chest/Resp: Bilateral equal air entry; chest clinically clear. CVS: Rhythm: Mildly tachycardic, with a stable regular rhythm. Rates in the 90s to 100s. GI: Persistent mild to moderate epigastric tenderness. no obvious organomegaly. Extremities: Bilateral equal pulses. No obvious pitting pedal edema. Data 06/30/25 04:47 06/30/25 04:47 Other Labs: . Lipase level today: 1100, compared to >15,000 yesterday US: Radiologist's impression: IMPRESSION: 1. Cholelithiasis with mild gallbladder wall thickening may be related to hepatocellular disease. No pericholecystic fluid. 2. Normal common bile duct. 3. By ultrasound pancreas is unremarkable. 4. Moderate hepatomegaly. A&P Assessment and plan 1. Gallstone pancreatitis: 2. Acute kidney injury: 3. Atrial fibrillation, unspecified type: 4. Type 2 diabetes mellitus: 5. Essential hypertension: 6. Chronic anticoagulation: Plan: 1. Acute pancreatitis due to gallstone: Resolving remarkable. We will start patient on some liquid diet, and probably advance diet later in the evening. At this rate, I think you are safe enough to discontinue ongoing IV antibiotics, as there appears to be no current indication for it; No glaring or significant/obvious sign of infections so far. Repeat lipase level tomorrow, and reassess in the morning. Anticipate discharge tomorrow if symptoms continue to recede, and if she continues tolerating the plan, and no further surgical intervention planned at this. 2. Chronic A-fib with chronic anticoagulation: Continue patient on ongoing subcu Lovenox, which is a current replacement for her home dose of anticoagulants... as well as her home dose of kalyan blockers, which were resumed yesterday. 3. Type 2 diabetes mellitus: Blood sugars have remained so far stable, may be because patient has been n.p.o. so far. We will control blood sugar control with sliding scale insulin if this becomes needed. 4. Essential hypertension: We we will resume patient's antihypertensive, as adjusted/needed. Control any severe elevated BPs with as needed IV hydralazine and/or oral clonidine PDMP PDMP Reviewed: Not Reviewed Attestations Medical Necessity Statement*: Acutely ill looking patient with apparent acute pancreatitis, still requires IV fluid, pain control, and advancing diet, we will watch for response to this. She will require least 1-2 more days of inpatient hospital stay, so as to better control acute problems, and further control comorbidities Coding Level of Care Code Acute Code for [facility] Diagnoses Gallstone pancreatitis K85.10 Acute kidney injury N17.9 Atrial fibrillation, unspecified type I48.91 Type 2 diabetes mellitus E11.9 Essential hypertension I10 Chronic anticoagulation Z79.01
--- NOTE | 2025-06-30 12:12 | PC.SOCIAL ---
IMM Updated Updated pt on IMM. No questions voiced. Provided pt a copy. Initialed, dated, & timed a copy & placed in chart.
[2025-06-30] MEDS: ondansetron 2 mg/ML SDV 2 mL 4 MG IVP (16:06)
[2025-07-01] VITALS (9 sets, daily range): BP systolic 135–183; BP diastolic 66–88; PULSE 70–180; RESP 18–22; TEMP 36.6–37.3; O2SAT 91–95
[2025-07-01 05:10] LABS: Hematocrit 34.3 % (36-47); Hemoglobin 11.20 g/dL (11.27-16.99); Mean Corpuscular HGB Conc 32.7 g/dL (30-55); Mean Corpuscular Hemoglobin 29.8 pg (27-33); Mean Corpuscular Volume 91.2 fl (85-98); Nucleated Red Blood Cells % 0 %; Platelet Count 161 10^3/cmm (157-399); Red Blood Count 3.76 10^6/uL (3.85-5.65); White Blood Count 19.42 10^3/uL (3.29-11.43)
[2025-07-01 05:32] LABS: Alanine Aminotransferase 160 U/L (0-33); Albumin Level 3.3 g/dL (3.5-5.2); Alkaline Phosphatase 95 U/L (35-105); Anion Gap 11.6 (5-19); Aspartate Amino Transferase 62 U/L (0-32); Blood Urea Nitrogen 21 mg/dL (8-23); Calcium 7.5 mg/dL (8.5-10.5); Carbon Dioxide 26 mmol/L (22-29); Chloride 106 mmol/L (98-107); Creatinine Clr Calc Pharmacy 84.8474; Globulin 1.8 g/dL (1.3-4.6); Glucose 123 mg/dL (65-115); Magnesium 1.9 mg/dL (1.7-2.3); Osmolality Calculated 294 mOsm/kg (285-295); Potassium 3.6 mmol/L (3.5-5.1); Sodium 140 mmol/L (136-145); Total Protein 5.1 g/dL (6.6-8.7)
[2025-07-01 05:52] LABS: Lipase 488 U/L (13-60)
--- NOTE | 2025-07-01 05:55 | ECG_ITS ---
[facility] Test Date: 2025-07-01 Pat Name: Priti Hurtado Department: Room: 254 Gender: Female Title Assistant: : 1955 Requested By: Adriel Howell Order Number: [id number] Quyen MD: Nikolas Steinberg M.D. Measurements Intervals [place] Rate: 184 P: 0 MA: 0 QRS: 8 QRSD: 113 T: -61 QT: 217 QTc: 380 Interpretive Statements SUPRAVENTRICULAR TACHYCARDIA MODERATE INTRAVENTRICULAR CONDUCTION DELAY [110+ ms QRS DURATION] ST & T-WAVE ABNORMALITY, POSSIBLE ISCHEMIA Compared to ECG 06/29/2025 00:24:46 Intraventricular conduction delay now present ST-T-wave abnormality now present Sinus rhythm no longer present Electronically Signed On 07-02-2025 15:30:33 MANAGER OF [employer]ALITY by Nikolas Steinberg M.D. [email or web address]
[2025-07-01] MEDS: adenosine 3 mg/mL SDV 2mL 6 MG IVP (06:00)
[2025-07-01] MEDS: adenosine 3 mg/mL SDV 2mL 12 MG IVP (06:03)
[2025-07-01] MEDS: metoprolol succinate ER (24 HR) 25 mg Tablet PO (06:08)
[2025-07-01] MEDS: dilTIAZem ER (24HR) 300 mg Capsule PO (06:08)
--- NOTE | 2025-07-01 06:09 | PM.CCNAC ---
Critical Care Event Note The high probability of a clinically significant, sudden or life threatening deterioration of the patient's [] system(s) required my full and direct attention, intervention and personal management. The critical care time is as shown. This time is in addition to time spent performing any reported procedures but includes the following: [x] Data and vital sign review and interpretation [x] Patient assessment, examination and intervention [x] Documentation [x] Medication orders and management Critical Care Time Code activated: No Critical Care Time (min): 25 Additional information about critical care time: - Nursing staff noted at about 5:50 AM patient developed SVT heart rates in the 180s - She has a known history of SVT - Order placed for 6 and 12 of adenocard - Patient was seen in the medical floors, she is alert oriented x 3, follow commands, normotensive, on room air, denies any chest pain, does report palpitations, shortness of breath - She was given 6 of adenosine - Heart rates remained in the 180s - She was given 12 of adenosine, heart rates down to 110s to 120s sinus tachycardia - Also given ice pack, asked to bear down, heart rates in the low 110s -Patient remains alert oriented x 3, following all commands, no chest pain, shortness of breath, - She is due for metoprolol and Cardizem this morning advised nursing staff to give her early this morning - Will monitor closely Coding Level of Care Code Acute Code for [facility]
[2025-07-01] MEDS: pantoprazole 40 mg SDV IVP (06:18)
--- NOTE | 2025-07-01 06:20 | PC.NURSE ---
SVT At 0549 patient noted to be tachycardic with heart rate appearing up to 185 on electrical mechanic. This nurse and patient care nurse Dawn went to check on patient. Patient alert and awake in bed with no apparent distress. Patient radial pulse palpated to be tachycardic as monitor indicated. Patient vitals as follows HR 186, O2 87% on room air, BP 117/68, R 20. Patient placed on 4L O2 per NC with O2 sats coming up to 95%. Patient reports no chest pain or difficulty breathing. EKG order placed. Patient attempted to cough/bear down without success of lowering heart rate. Patient given syringe and attempted to blow plunger out of syringe, no success in lowering heart rate. Dr. Howell called to bedside. EKG reports SVT. Verbal order received for 6mg Adenosine IVP x1 dose now. Crash cart at bedside with Zoll monitor attached. Patient given Adenosine 6mg IVP with rapid flush at 0600 without change in heart rate, HR 184. Dr. Howell ordered 12mg Adenosine IVP x1 dose stat and to draw up Metoprolol 5mg IVP to hold until further orders. 12mg Adenosine IVP with rapid flush administered at 0603. Ice pack applied to patient forehead per Dr. Howell. Patient heart rhythm changed to ST ~115bpm following the 12mg Adenosine IVP. Patient due for AM PO Cardizem and Metoprolol, Dr. Howell gave orders to give these medications stat and to hold the 5mg IVP dose of Metoprolol. PO Cardizem and Metoprolol administered by patient care nurse Dawn. Current set of vitals at 0635 BP 157/81, HR 116, O2 95% on 4L O2 per NC, R 18. Patient remains with Zoll pads attached and electrical mechanic on.
[2025-07-01] MEDS: piperacillin-tazobactam 3.375 GM in sodium chloride 0.9% (plus) 50 ML IV ×3 (06:24→23:18)
--- NOTE | 2025-07-01 07:45 | P.PN_ITS ---
Subjective 2 Subjective: Continues to slow clinical improvement but has been able to tolerate a full liquid diet. Abdominal pain is also improved Vitals/I&O/Wt Last Vital Signs Temp 98.7 F 07/01/25 07:43 Pulse 114 H 07/01/25 07:43 Resp 18 07/01/25 07:43 BP 148/84 07/01/25 07:43 Pulse Ox 95 07/01/25 07:43 O2 Del Method Nasal Cannula 07/01/25 07:43 06/30/25 07/01/25 07/01/25 22:59 06:59 14:59 Intake Total 1885 / 1935 1033.333 / 2968.333 Output Total 500 / 500 Balance 1885 / 1935 1033.333 / 2968.333 -500 / -500 Weight last 48 hrs Weight 123 lb 9.6 oz Weight 249 lb Physical Exam 2 GI: OTHER: Benign abdominal examination abdomen soft very minimally tender in the mid abdomen no right upper quadrant tenderness. Data 07/01/25 04:42 07/01/25 04:42 A&P Assessment and plan 1. Acute biliary pancreatitis: 2. Gallstone pancreatitis: Plan: Clinically improving, laboratory workup slightly improved. She did have an episode of tachycardia overnight treated with IV medication. No significant changes from the general surgery standpoint once again I talked to the patient regarding the need of removing her gallbladder in the outpatient setting as soon as clinically safe. She shows understanding. All other management per primary team. General surgery will continue to follow-up in the periphery. PDMP PDMP Reviewed: Not Reviewed Attestations 2 Medical Necessity Statement*: Per medical team Coding Level of Care Code Acute Code for [facility] Fwd Diagnoses Acute biliary pancreatitis K85.10 Gallstone pancreatitis K85.10
--- NOTE | 2025-07-01 09:25 | P.PN_ITS ---
Subjective 2 Subjective: Patient seen again this morning medical floor. She reports no more significant abdominal pain. She is tolerating the liquid diet that was her yesterday, though she reports that she did not like the diary liquid diets that they gave her, given lactose sensitivity. Last night, she was part of an episode of SVT, with heart rate up into the 180s. For this, she got some 2 IV doses of adenosine, which resolved the problem. Currently, she had been resumed on her CD diltiazem and metoprolol, which she takes at home. Vitals/I&O/Wt Last Vital Signs Temp 98.7 F 07/01/25 07:43 Pulse 114 H 07/01/25 07:43 Resp 18 07/01/25 07:43 BP 148/84 07/01/25 07:43 Pulse Ox 95 07/01/25 07:43 O2 Del Method Nasal Cannula 07/01/25 07:43 06/30/25 07/01/25 07/01/25 22:59 06:59 14:59 Intake Total 1884 / 1934 1033.333 / 2968.333 800 / 800 Output Total 500 / 500 Balance 1884 1033.333 / 2968.333 300 / 300 Weight last 48 hrs Weight 56.064 kg Weight 112.945 kg Physical Exam 2 Narrative: General: Awake and alert. Cooperative. Chest/Resp: Normal respiratory chest movts; no obvious respiratory distress. CVS: Rhythm: Regular heart rate and rhythm. GI: Non-distended; No obvious organomegaly. Very mild epigastric tenderness. Extremities: No obvious pitting pedal edema. Skin: No obvious new rashes or new skin lesions. Data 07/01/25 04:42 07/01/25 04:42 A&P Assessment and plan 1. Acute biliary pancreatitis: Remarkably resolving. Intervention diet, and anticipate discharge tomorrow if able tolerating diet. 2. Acute kidney injury: Completely resolved with intravenous rehydration. 3. Increased anion gap metabolic acidosis: Completely resolved. I will DC this diagnosis 4. Atrial fibrillation: Currently stable. The episode of SVT last night with heart rate of 180 noted. There is a chance that this could have rather been an episode of RVR with A-fib. Continue patient on ongoing kalyan blockers. Will add more kalyan blockers if tachycardia persists. Otherwise, will consult cardiology if that she does not adequately controlled. 5. Chronic anticoagulation: Resume home dose of Eliquis at this time 6. Essential hypertension: Currently stable. Continue home medications, which appears to be metoprolol at this time only, as adjusted. Lisinopril currently on hold, given earlier soft BPs and n.p.o. status. Possibly resume this later today or tomorrow, if BP creeps up. Plan: See comments above. Anticipate discharge tomorrow. PDMP PDMP Reviewed: Not Reviewed Attestations 2 Medical Necessity Statement*: Patient is considerately estimated to likely to require at least 1 more mid- night stay in the medical floor on inpatient status so as to hopefully optimally treat the acute medical problems and their symptoms and further control comorbidities. Coding Level of Care Code Acute Code for [facility] Fwd Diagnoses Acute biliary pancreatitis K85.10 Acute kidney injury N17.9 Increased anion gap metabolic acidosis E87.29 Atrial fibrillation I48.91 Chronic anticoagulation Z79.01 Essential hypertension I10
[2025-07-01] MEDS: ondansetron 2 mg/ML SDV 2 mL 4 MG IVP (12:30)
[2025-07-02] VITALS: BP 149/72; PULSE 100; RESP 22; TEMP 37.1; O2SAT 94
[2025-07-02 04:00] VITALS: BP 158/75; PULSE 93; RESP 19; TEMP 36.9; O2SAT 94
[2025-07-02 04:13] LABS: Hematocrit 31.8 % (36-47); Hemoglobin 10.40 g/dL (11.27-16.99); Mean Corpuscular HGB Conc 32.7 g/dL (30-55); Mean Corpuscular Hemoglobin 30.1 pg (27-33); Mean Corpuscular Volume 92.2 fl (85-98); Nucleated Red Blood Cells % 0 %; Platelet Count 117 10^3/cmm (157-399); Red Blood Count 3.45 10^6/uL (3.85-5.65); White Blood Count 14.63 10^3/uL (3.29-11.43)
[2025-07-02] MEDS: metoprolol succinate ER (24 HR) 25 mg Tablet PO (04:16)
[2025-07-02] MEDS: dilTIAZem ER (24HR) 300 mg Capsule PO (04:17)
[2025-07-02] MEDS: pantoprazole 40 mg SDV IVP (04:17)
[2025-07-02 04:27] LABS: Alanine Aminotransferase 102 U/L (0-33); Albumin Level 2.9 g/dL (3.5-5.2); Alkaline Phosphatase 84 U/L (35-105); Anion Gap 10.6 (5-19); Aspartate Amino Transferase 32 U/L (0-32); Blood Urea Nitrogen 13 mg/dL (8-23); Calcium 7.8 mg/dL (8.5-10.5); Carbon Dioxide 26 mmol/L (22-29); Chloride 102 mmol/L (98-107); Globulin 2.8 g/dL (1.3-4.6); Glucose 118 mg/dL (65-115); Magnesium 2.0 mg/dL (1.7-2.3); Osmolality Calculated 281 mOsm/kg (285-295); Potassium 3.6 mmol/L (3.5-5.1); Sodium 135 mmol/L (136-145); Total Protein 5.7 g/dL (6.6-8.7)
[2025-07-02 05:02] VITALS: PULSE 80
[2025-07-02] MEDS: piperacillin-tazobactam 3.375 GM in sodium chloride 0.9% (plus) 50 ML IV (06:02)
[2025-07-02 07:28] VITALS: BP 130/67; PULSE 89; RESP 24; TEMP 37.2; O2SAT 93
[2025-07-02 08:27] LABS: Lipase 75 U/L (13-60)
--- NOTE | 2025-07-02 10:12 | P.PN_ITS ---
Subjective 2 Subjective: Patient showing very good progression no abdominal pain tolerating diet no significant issues Vitals/I&O/Wt Last Vital Signs Temp 99.0 F 07/02/25 07:28 Pulse 89 07/02/25 07:28 Resp 24 H 07/02/25 07:28 BP 130/67 07/02/25 07:28 Pulse Ox 93 07/02/25 07:28 O2 Del Method Nasal Cannula 07/02/25 07:28 O2 Flow Rate 2 07/01/25 20:00 07/01/25 07/02/25 07/02/25 22:59 06:59 14:59 Intake Total 170 / 1080 170 / 1250 120 / 120 Output Total 600 / 1100 500 / 500 Balance 170 / 580 -430 / 150 -380 / -380 Weight last 48 hrs Weight 273 lb 2.444 oz Weight 123 lb 9.6 oz Physical Exam 2 GI: OTHER: No abdominal pain Data 07/02/25 04:04 07/02/25 04:04 A&P Assessment and plan 1. Acute biliary pancreatitis: Plan: Patient showing better regrouped progression, pancreatitis seems to be resolving, white count is trending down no significant abdominal pain she is tolerating diet. Patient can follow-up in the outpatient setting the general surgery clinic for discussion of elective cholecystectomy to prevent further episodes of gallstone pancreatitis. She shows understanding and agrees. PDMP PDMP Reviewed: Not Reviewed Attestations 2 Medical Necessity Statement*: Per medical team Coding Level of Care Code Acute Code for [facility] Fwd Diagnoses Acute biliary pancreatitis K85.10
--- NOTE | 2025-07-02 10:24 | P.DS_ITS ---
Discharge Providers Date of Admission: 06/29/25 05:03 Date of Discharge: July 02, 2025 Attending Provider at Admission: Adriel Howell MD Attending Provider at Discharge: Khang Akers MD Primary Care Provider: Sudheer Ivy Diagnoses at Discharge Discharge Diagnosis 1. Acute biliary pancreatitis: 2. Increased anion gap metabolic acidosis: 3. Chronic atrial fibrillation: 4. Type 2 diabetes mellitus with other specified complication, without long-term current use of insulin: 5. Essential hypertension: 6. Chronic anticoagulation: Reason for Visit Reason for Visit: abdomen pain Brief History: Patient presented with apparent right upper quadrant/epigastric abdominal pain. She was diagnosed of acute pancreatitis, based on CT and lab elevated lipase levels. She was admitted, and monitored closely. Aggressively, she was rehydrated with normal saline, while pain was controlled. General surgery was consulted, who also help to monitor place patient closely. Further imaging reviewed gallstone, right appears not to be obstructing at this time. Other symptoms were treated empirically. Hospital Course Hospital Course All other concomitant symptoms were treated empirically. The active chronic med ical problems were treated with home medications, as adjusted. Patient's hospital stay was complicated with an episode of SVT 2 nights ago, with heart rate jumping into the 180s.. This was successfully aborted with 2 doses of IV adenosine, which further helped control and treat the severe tachycardia. Otherwise, she was continued on her home kalyan blockers, diltiazem and metoprolol, which further help to control the rest of the dysrhythmias. Overall, patient responded well to treatment, and therefore deemed fit for discharge today. See my discharge orders and discharge instructions for more details. Physical Exam Narrative: General: Awake and alert. Cooperative. Chest/Resp: Normal respiratory chest movts; no obvious respiratory distress. CVS: Rhythm: Regular heart rate and rhythm. GI: Non-distended; No obvious organomegaly. No obvious significant epigastric tenderness. Extremities: No obvious pitting pedal edema. Skin: No obvious new rashes or new skin lesions. Discharge Data Studies Completed and Pending Completed Studies During Hospitalization Category Date Time Status CT abdomen pelvis w con* [id number] Stat Cat Scan 06/29/25 00:13 Completed XR chest 1V portable [id number] Stat Exams 06/29/25 00:06 Completed US gall bladder [id number] Stat Ultrasound 06/29/25 04:39 Completed Radiology Impressions Chest X-Ray 06/29/25 00:06 IMPRESSION: No acute findings. Abdomen/Pelvis CT 06/29/25 00:13 IMPRESSION: 1. Moderate edema surrounding the pancreas, concerning for pancreatitis. 2. Diverticulosis, without acute diverticulitis. No small bowel obstruction. No free air. Gallbladder Ultrasound 06/29/25 04:39 IMPRESSION: 1. Cholelithiasis with mild gallbladder wall thickening may be related to hepatocellular disease. No pericholecystic fluid. 2. Normal common bile duct. 3. By ultrasound pancreas is unremarkable. 4. Moderate hepatomegaly. Laboratory Results WBC 14.63 10^3/uL (3.29-11.43) H 07/02/25 04:04 RBC 3.45 10^6/uL (3.85-5.65) L 07/02/25 04:04 Hgb 10.40 g/dL (11.27-16.99) L 07/02/25 04:04 Hct 31.8 % (36-47) L 07/02/25 04:04 MCV 92.2 fl (85-98) 07/02/25 04:04 MCH 30.1 pg (27-33) 07/02/25 04:04 MCHC 32.7 g/dL (30-55) 07/02/25 04:04 RDW 13.5 % (12.1-15.1) 07/02/25 04:04 Plt Count 117 10^3/cmm (157-399) L 07/02/25 04:04 MPV 11.0 fL (7.4-10.4) H 07/02/25 04:04 Neut % (Auto) 83.0 % 07/02/25 04:04 Lymph % (Auto) 9.8 % 07/02/25 04:04 [place] % (Auto) 5.9 % 07/02/25 04:04 Eos % (Auto) 0.4 % 07/02/25 04:04 Baso % (Auto) 0.2 % 07/02/25 04:04 Neut # (Auto) 12.14 10^3/uL (1.8-7.7) H 07/02/25 04:04 Lymph # (Auto) 1.4 10^3/uL (0.8-4.8) 07/02/25 04:04 [place] # (Auto) 0.9 10^3/uL (0.2-0.9) 07/02/25 04:04 Eos # (Auto) 0.1 10^3/uL (0.0-0.8) 07/02/25 04:04 Baso # (Auto) 0.0 10^3/uL (0.0-0.1) 07/02/25 04:04 Nucleated RBC % (auto) 0 % 07/02/25 04:04 Nucleated RBCs # 0.0 /100WBC 07/02/25 04:04 Sodium 135 mmol/L (136-145) L 07/02/25 04:04 Potassium 3.6 mmol/L (3.5-5.1) 07/02/25 04:04 Chloride 102 mmol/L (98-107) 07/02/25 04:04 Carbon Dioxide 26 mmol/L (22-29) 07/02/25 04:04 Anion Gap 10.6 (5-19) 07/02/25 04:04 BUN 13 mg/dL (8-23) 07/02/25 04:04 Creatinine 0.7 mg/dL (0.5-0.9) 07/02/25 04:04 GFR Calculation 82.7 mL/min (90-130) L 07/02/25 04:04 Glucose 118 mg/dL (65-115) H 07/02/25 04:04 POC Glucose 102 mg/dL (70-110) 07/01/25 06:32 Estimat Average Glucose 108 06/28/25 23:55 Hemoglobin A1c 5.4 % (4.0-6.0) 06/28/25 23:55 Calculated Osmolality 281 mOsm/kg (285-295) L 07/02/25 04:04 Lactic Acid 3.4 mmol/L (0.5-2.2) H 06/29/25 05:44 Lactic Acid (Sepsis) 2.1 mmol/L (0.5-2.2) 06/29/25 08:44 Calcium 7.8 mg/dL (8.5-10.5) L 07/02/25 04:04 Magnesium 2.0 mg/dL (1.7-2.3) 07/02/25 04:04 Total Bilirubin 0.7 mg/dL (0.15-1.2) 07/02/25 04:04 AST 32 U/L (0-32) 07/02/25 04:04 ALT 102 U/L (0-33) H 07/02/25 04:04 Alkaline Phosphatase 84 U/L (35-105) 07/02/25 04:04 Total Protein 5.7 g/dL (6.6-8.7) L 07/02/25 04:04 Albumin 2.9 g/dL (3.5-5.2) L 07/02/25 04:04 Globulin 2.8 g/dL (1.3-4.6) 07/02/25 04:04 Triglycerides 65 mg/dL (0-150) 06/29/25 05:00 Cholesterol 134 mg/dL (0-200) 06/29/25 05:00 LDL Cholesterol, Calc 64 mg/dL (50-129) 06/29/25 05:00 HDL Cholesterol 57 mg/dL (60-100) L 06/29/25 05:00 LDL/HDL Ratio 1.12 RATIO (0.00-3.22) 06/29/25 05:00 Cholesterol/HDL Ratio 2.35 mg/dL (0.0-4.40) 06/29/25 05:00 Lipase 75 U/L (13-60) H 07/02/25 04:04 Procalcitonin 0.30 ng/mL (0-0.5) 06/29/25 05:00 TSH 2.26 uIU/mL (0.27-4.20) 06/29/25 05:00 Urine Color Yellow (Yellow) 06/29/25 06:04 Urine Appearance Clear (CLEAR) 06/29/25 06:04 Urine pH 7.0 (5-7) 06/29/25 06:04 Ur Specific [place] 1.068 (1.005-1.030) H 06/29/25 06:04 Urine Protein 1+ (Negative) A 06/29/25 06:04 Urine Glucose (UA) Negative (Normal) 06/29/25 06:04 Urine Ketones Negative (Negative) 06/29/25 06:04 Urine Blood Negative (Negative) 06/29/25 06:04 Urine Nitrate Negative (Negative) 06/29/25 06:04 Urine Bilirubin Negative (Negative) 06/29/25 06:04 Urine Urobilinogen 1.0 mg/dL (Negative) 06/29/25 06:04 Ur Leukocyte Esterase Negative (Negative) 06/29/25 06:04 Urine RBC 0-2 /hpf (0-2) 06/29/25 06:04 Urine WBC 0-5 /hpf (0-5) 06/29/25 06:04 Ur Squamous Epith Cells 0-5 /hpf (0-5) 06/29/25 06:04 Amorphous Sediment Not Reportable 06/29/25 06:04 Urine Bacteria None seen /hpf (NONE) 06/29/25 06:04 Hyaline Casts 3.71 /lpf 06/29/25 06:04 Vitals Last Vital Signs Temp 99.0 F 07/02/25 07:28 Pulse 89 07/02/25 07:28 Resp 24 H 07/02/25 07:28 BP 130/67 07/02/25 07:28 Pulse Ox 93 07/02/25 07:28 O2 Del Method Nasal Cannula 07/02/25 07:28 O2 Flow Rate 2 07/01/25 20:00 Discharge Plan Discharge Patient Disposition: Home Condition: Stable Prescriptions: New amoxicillin-pot clavulanate [Augmentin] 500-125 mg tablet 1 tab PO Q8H Qty: 14 0RF metoclopramide HCl 5 mg tablet 5 - 10 mg PO TID PRN (Reason: nausea and vomiting) 5 Days Qty: 20 1RF Continued Eliquis 5 mg tablet 5 mg PO BID Qty: 60 11RF atorvastatin 20 mg tablet 20 mg PO BEDTIME Qty: 30 11RF Dulera 100-5 mcg/actuation HFA aerosol inhaler 2 puff inhalation BID Qty: 13 11RF (DME) Nebulizer machine and supplies See Rx Instructions .ROUTE .MEDSUPPLY Qty: 1 11RF Rx Instructions: As directed metoprolol succinate 25 mg tablet extended release 24 hr 25 mg PO DAILY Qty: 30 3RF lisinopril 20 mg tablet 20 mg PO QAM diltiazem HCl 300 mg capsule,extended release 24 hr 300 mg PO QAM montelukast [Singulair] 10 mg tablet 10 mg PO BEDTIME allopurinol 300 mg tablet 300 mg PO QPM levothyroxine 75 mcg capsule 75 mcg PO QAM multivitamin Tablet 1 tab PO QAM Customer Service Sales Consultant OK for DC: Surgery Discharge Order = DC NOW: Discharge Order (Routine); Ordered 11/16/25 Ordered By: Khang Akers Referrals: Butch Love MD [Physician, General Surgery] - 2 weeks Referral Note: We have notified your physician's clinic of the need for a follow-up appointment to be scheduled. If you have not heard from them within the next 2 business days, please call them directly. Sudheer Ivy NP [Primary Care Provider, Family Practice] Referral Note: We have notified your physician's clinic of the need for a follow-up appointment to be scheduled. If you have not heard from them within the next 2 business days, please call them directly. Discharge Diet: Usual diet and Diabetic Discharge Activity: Resume usual activity and Increase activity as tolerated Patient Instructions: Metoclopramide (By mouth), Amoxicillin/Clavulanate Potassium (By mouth), Pancreatitis (DC), Abdominal Pain (ED), Opioid Safety, Patient Portal & Thierry Instructions Activity Restrictions/Additional Instructions: Follow up with your PCP within 1-2 weeks/as needed for more advice. Follow up with gen surgeon as directed. Discharge Attestations Time Spent in Discharge Care*: less than 30 min Quality Metrics Clinical Quality Measures [ No reported AMI, CVA or VTE this stay] Coding Level of Care Code Acute Code for [facility] Fwd Diagnoses Acute biliary pancreatitis K85.10 Acute pancreatitis complication: no infection or necrosis Increased anion gap metabolic acidosis E87.29 Chronic atrial fibrillation I48.20 Atrial fibrillation type: unspecified chronic Type 2 diabetes mellitus with other specified complication, without long-term current use of insulin E11.69 Diabetes mellitus alf insulin use: without intermediate frame tender use Diabetes mellitus complication status: with other specified complication Essential hypertension I10 Chronic anticoagulation Z79.01
[2025-07-02 11:27] VITALS: BP 113/66; PULSE 82; RESP 21; TEMP 36.8; O2SAT 93
[2025-07-02 13:31] VITALS: BP 113/66; PULSE 82; RESP 21; TEMP 36.8; O2SAT 93
== END 2025-07-02 13:32 | disposition home or self-care (01) | DRG 439 ==
LOC: ER 06-29 02:49 → MEDSURG 06-29 06:27
PROVIDERS: Physician Assistant; Admitting Provider Family Medicine; Emergency Provider Emergency Medicine; PCP Clinical Nurse Specialist Adult Health; Visit Provider Family Medicine
DX: K85.10 Biliary acute pancreatitis without necrosis or infection (principal); E87.20 Acidosis, unspecified; I48.20 Chronic atrial fibrillation, unspecified; I47.10 Supraventricular tachycardia, unspecified; N17.9 Acute kidney failure, unspecified; E11.9 Type 2 diabetes mellitus without complications; I10 Essential (primary) hypertension; E03.9 Hypothyroidism, unspecified; G47.33 Obstructive sleep apnea (adult) (pediatric); M10.9 Gout, unspecified; E78.5 Hyperlipidemia, unspecified; J44.9 Chronic obstructive pulmonary disease, unspecified; M19.90 Unspecified osteoarthritis, unspecified site; M06.9 Rheumatoid arthritis, unspecified; E86.0 Dehydration; Z79.01 Long term (current) use of anticoagulants
CPT/HCPCS: 36415; 36416; 71045; 74177; 76705; 80053; 80061; 81001; 82962; 83036; 83605; 83690; 83735; 84145; 84443; 85025; 93005; 96361; 96372; 96374; 96375; 99285; J0153; J1200; J1650; J2270; J2405; J2470; J2543; J2765; J7030; J7120; J9999

== ENCOUNTER → 2025-07-26 11:15 | Outpatient (BNVA) | payer MEDICARE, MEDICAID, SELFPAY | PROVIDERS: PCP Clinical Nurse Specialist Adult Health; Visit Provider Surgery | DX: K85.10 Biliary acute pancreatitis without necrosis or infection (principal); K80.50 Calculus of bile duct without cholangitis or cholecystitis without obstruction | CPT/HCPCS: 99204; 99214 ==